=== PATIENT | female | born 1945 | race Caucasian/White ===

== ENCOUNTER 2016-12-23 21:44 | Inpatient (IN) | payer MEDICARE, MEDICAID ==
[2016-12-23] MEDS ORDERED: Albuterol-Ipratrop 3 mg / 0.5 (3 ml) UD ONE (21:53)
--- NOTE | 2016-12-23 21:59 | ED PDOC ---
Arrival/HPI - General Time Seen by Provider: 12/23/16 21:53 Historian: Patient - History of Present Illness Narrative History of Present Illness (Text): 12/23/16 21:58 Johnny Flor is a 70 year old female, whose past medical history includes stroke and atrial fibrillation, who presents to the Emergency department brought in by EMS accompanied by son complaining of shortness of breath. Patient states, via son acting as small lot operator, she has been experiencing worsening shortness of breath since yesterday. Patient denies any fever, chills, chest pain, nausea, vomiting, diarrhea, urinary symptoms, back pain, neck pain, headache, dizziness , or any other complaints. PMD: Dr. Dimitri Antunez Time/Duration: 24 hours (yesterday) Symptom Onset: Gradual Symptom Course: Worsening Activities at Onset: Rest, Light Context: Home Past Medical History - Provider Review Nursing Documentation Reviewed: Yes Family/Social History - Physician Review Nursing Documentation Reviewed: Yes Family/Social History: No Known Family HX Allergies/Home Meds Allergies/Adverse Reactions: Allergies No Known Allergies Allergy (Verified 12/23/16 22:00) Review of Systems - Physician Review All systems were reviewed & negative as marked: Yes - Review of Systems Constitutional: Normal. absent: Fevers Eyes: Normal ENT: Normal Respiratory: SOB. absent: Cough Cardiovascular: Normal. absent: Chest Pain Gastrointestinal: Normal. absent: Abdominal Pain, Diarrhea, Nausea, Vomiting Genitourinary Female: Normal. absent: Dysuria, Frequency, Hematuria, Urine Output Changes Musculoskeletal: Normal. absent: Back Pain, Neck Pain Skin: Normal. absent: Rash Neurological: Normal. absent: Headache, Dizziness Endocrine: Normal Hemo/Lymphatic: Normal Psychiatric: Normal Physical Exam Vital Signs Reviewed: Yes Vital Signs Temp Pulse Resp BP Pulse Ox 12/24/16 01:25 82 16 108/65 98 12/23/16 22:30 144/97 H 100 12/23/16 22:21 90 23 144/97 H 100 12/23/16 21:55 98.7 F 81 18 147/100 H 21 L Temperature: Afebrile Blood Pressure: Hypertensive Pulse: Regular Respiratory Rate: Normal Appearance: Positive for: Well-Appearing, Non-Toxic, Comfortable Pain Distress: None Mental Status: Positive for: Alert and Oriented X 3 - Systems Exam Head: Present: Atraumatic, Normocephalic Pupils: Present: PERRL Extroacular Muscles: Present: EOMI Conjunctiva: Present: Normal Mouth: Present: Moist Mucous Membranes Neck: Present: Normal Range of Motion Respiratory/Chest: Present: Wheezes, Rales. No: Respiratory Distress, Accessory Muscle Use Cardiovascular: Present: Regular Rate and Rhythm, Normal S1, S2. No: Murmurs Abdomen: Present: Normal Bowel Sounds. No: Tenderness, Distention, Peritoneal Signs Back: Present: Normal Inspection Upper Extremity: Present: Normal Inspection. No: Cyanosis, Edema Lower Extremity: Present: Normal Inspection. No: Edema Neurological: Present: GCS=15, CN II-XII Intact, Speech Normal Skin: Present: Warm, Dry, Normal Color. No: Rashes Psychiatric: Present: Alert, Oriented x 3, Normal Insight, Normal Concentration Medical Decision Making ED Course and Treatment: 12/23/16 21:58 Impression: 70 year old female complaining of worsening shortness of breath since yesterday. Differential Diagnosis include but are not limited to: CHF vs. pneumonia vs. ACS Plan: -- EKG -- Chest X-ray -- Labs, cardiac enzymes, BNP -- Lasix -- Duonebs -- Reassess and disposition Progress Notes: Reviewed EKG, a fib at 88 bpm. Non-specific T-wave changes. 12/23/16 22:52 Reviewed radiology, Chest X-ray shows increased pulmonary vascular congestion 12/24/16 00:04 Reviewed labs, BNP:5410. Paged Dr. Williamson. 12/24/16 00:[address] Williamson's service. 12/24/16 01:[address] Williamson, covering for Dr. Colbert, who is aware and agrees with plan. Pt will be admitted to Telemetry for CHF under Dr. Colbert's service. Requests Dr. Bryan on consult. - Lab Interpretations Lab Results: 12/23/16 22:31 12/23/16 23:23 Lab Results 12/23/16 23:23: Sodium 137, Potassium 4.1, Chloride 95 L, Carbon Dioxide 33, Anion Gap 13, BUN 21, Creatinine 0.8, Est GFR ( Amer) > 60, Est GFR (Non- Af Amer) > 60, Random Glucose 131 H, Calcium 9.2, Total Bilirubin 0.8, AST 51 H , ALT 57 H, Alkaline Phosphatase 92, Lactate Dehydrogenase 710 H, Total Creatine Kinase 59, Troponin I 0.02, NT-Pro-B Natriuret Pep 5410 H, Total Protein 7.9, Albumin 4.3, Globulin 3.6, Albumin/Globulin Ratio 1.2 12/23/16 22:31: WBC 3.8 L, RBC 3.91, Hgb 12.6, Hct 38.9, MCV 99.5, MCH 32.2, MCHC 32.4, RDW 14.4, Plt Count 155, MPV 10.8, PT 12.0 H, INR 1.11 H, APTT 28.2 I have reviewed the lab results: Yes - RAD Interpretation Radiology Orders: 12/23/16 22:00 CHEST PORTABLE [RAD] Stat Flatwork Washer: ED Physician - EKG Interpretation Interpreted by ED Physician: Yes Type: 12 lead EKG - Medication Orders Current Medication Orders: Discontinued Medications Albuterol/Ipratropium (Duoneb 3 Mg/0.5 Mg (3 Ml) Ud) Confirm Administered Dose 3 ml .ROUTE .STK-MED ONE Stop: 12/23/16 21:54 Last Admin: 12/23/16 22:36 Dose: Albuterol/Ipratropium (Duoneb 3 Mg/0.5 Mg (3 Ml) Ud) 3 ml IH ONCE STA Stop: 12/23/16 22:01 Last Admin: 12/23/16 22:31 Dose: 3 ML Furosemide (Lasix) 40 mg IVP ONCE ONE Stop: 12/23/16 22:01 Last Admin: 12/23/16 22:30 Dose: 40 MG MAR Blood Pressure Document 12/23/16 22:30 MR (Rec: 12/23/16 22:30 [facility]-[id number]) Blood Pressure Blood Pressure (100/60-150/90 mm Hg) 144/97 IVP Administration Document 12/23/16 22:30 (Rec: 12/23/16 22:30 [facility]-[id number]) Charges for Administration # of IVP Administrations 1 - Scribe Statement The provider has reviewed the documentation as recorded by the Frankie Felix Provider Attestation: All medical record entries made by the Scribe were at my direction and personally dictated by me. I have reviewed the chart and agree that the record accurately reflects my personal performance of the history, physical exam, medical decision making, and the department course for this patient. I have also personally directed, reviewed, and agree with the discharge instructions and disposition. Disposition/Present on Arrival - Present on Arrival Any Indicators Present on Arrival: No History of DVT/PE: No History of Uncontrolled Diabetes: No Urinary Catheter: No History of Decub. Ulcer: No History Surgical Site Infection Following: None - Disposition Have Diagnosis and Disposition been Completed?: Yes Diagnosis: Congestive heart failure Disposition: HOSPITALIZED Disposition Time: 01:58 Patient Plan: Admission Patient Problems: Current Active Problems Problem Status Diagnosed Congestive heart failure Acute Condition: STABLE Discharge Instructions (ExitCare): Heart Failure (ED)
[2016-12-23] MEDS ORDERED: Albuterol-Ipratrop 3 mg / 0.5 (3 ml) UD IH STA (22:00)
[2016-12-23 22:06] VITALS: BMI 25.4
[2016-12-23 22:50] LABS: HEMATOCRIT 38.9 % (36.0-48.0); MEAN CELL VOLUME 99.5 fL (80.0-105.0); MEAN CORPUSCULAR HEMOGLOBIN 32.2 pg (25.0-35.0); MEAN CORPUSCULAR HGB CONC 32.4 g/dl (31.0-37.0); MEAN PLATELET VOLUME 10.8 fl (7.0-11.0); RED CELL DISTRIBUTION WIDTH 14.4 % (11.5-14.5); WHITE BLOOD COUNT 3.8 10^3/ul (4.5-11.0)
[2016-12-23 23:00] LABS: INR 1.11 (0.93-1.08); PARTIAL THROMBOPLASTIN TIME 28.2 Seconds (23.7-30.8)
[2016-12-23 23:47] LABS: ALB/GLOB RATIO 1.2 (1.1-1.8); ALKALINE PHOSPHATASE 92 U/L (38-133); ALT/SGPT 57 U/L (7-56); AST/SGOT 51 U/L (15-39); BILIRUBIN,TOTAL 0.8 mg/dL (0.2-1.3); BLOOD UREA NITROGEN 21 mg/dL (7-21); CALCIUM 9.2 mg/dL (8.4-10.5); CARBON DIOXIDE 33 mmol/L (21-33); CHLORIDE 95 mmol/L (98-107); GFR AFRICAN-AMERICAN > 60; GLUCOSE,RANDOM 131 mg/dL (70-110); POTASSIUM 4.1 mmol/L (3.6-5.0); SODIUM 137 mmol/L (132-148); TOTAL PROTEIN 7.9 g/dL (5.8-8.3)
[2016-12-23 23:59] LABS: TROPONIN I 0.02 ng/mL
[2016-12-24] MEDS ORDERED: Albuterol-Ipratrop 3 mg / 0.5 (3 ml) UD IH PRN (02:01)
--- NOTE | 2016-12-24 08:53 | RAD ---
HISTORY: sob COMPARISON: No prior. FINDINGS: LUNGS: Mild pulmonary vascular congestion -of unknown chronicity. . No consolidation PLEURA: No significant pleural effusion identified, no pneumothorax apparent. CARDIOVASCULAR: Cardiomegaly OSSEOUS STRUCTURES: No significant abnormalities. VISUALIZED UPPER ABDOMEN: Normal. OTHER FINDINGS: None. IMPRESSION: Mild pulmonary venous congestion and cardiomegaly - mild CHF needs to be considered.
--- NOTE | 2016-12-24 09:19 | HP ---
I saw her in the intensive care unit, bed 1. She is resting in bed, a little bit short of breath, ta lking in broken Yemeni, able to communicate fairly well. She is comfortable at this time, feeling b mohini than in the Emergency Room. No shortness of breath or chest pain at this time, just a little b it uncomfortable. PAST MEDICAL HISTORY: Includes stroke, atrial fibrillation. She was short of breath in the Emergency Room. That is much improved now. It gradually got worse be fore she came to the hospital. FAMILY HISTORY: There is hypertension in the family. ALLERGIES: No known drug allergies. She has no acute vision changes or hearing changes, no sore throat. There is a little bit of chest d iscomfort and shortness of breath, but it is relieved now. [facility] I believe the IV Lasix in the Emergency Room helped her. No nausea, vomiting, constipa tion, diarrhea. No problems urinating. No back pain. No skin rashes. No headaches, no dizziness. She does have some weakness in the extremities. PHYSICAL EXAMINATION: VITAL SIGNS: She has 98.7 temp, 81 pulse, 18 respiratory rate. Blood pressure was as high as 147/10 0. I will check her medicines for the blood pressure and 100% O2 sat on oxygen. HEENT: Head is atraumatic, normocephalic. Extraocular muscles are intact. Pupils equally reactive to light. Throat is moist, no erythema. GENERAL: She is alert and oriented x 3, well-appearing, comfortable at this time. NECK: Supple, no JVD. LUNGS: Clearer than in the ER. She did have wheezes and rales in the Emergency Room. Right now, th ey are fairly clear with very little cough. HEART: Regular rate. Normal S1, S2. ABDOMEN: Soft, nontender, positive bowel sounds. No CVA tenderness. No guarding, no rebound. EXTREMITIES: Have no edema at this time. NEUROLOGIC: GCS is 15. Cranial nerves II-XII grossly intact. Normal speech. She is alert. She is smiling at me and laughing with her broken Yemeni, alert and oriented x 3. She had multiple tests. She had a 137 sodium, potassium 4.1, BUN 21, creatinine 0.8, GFR is greater than 60, sugar is 131. We will check her sugars periodically. Calcium is 9.2. AST is 51, ALT is 57 . We will watch her elevated liver enzymes and we will repeat that. Troponin 0.02. BNP was high at 5410. Total protein 7.9. INR 1.11. White count is 3.8, hemoglobin 12.6, hematocrit 38.9, platelet s 155. She has a chest x-ray pending. It looked like congestive heart failure. She will have a con sult with cardiology. She will be on IV Lasix twice a day, oxygen, insulin coverage, physical therap y, out of bed to chair and hopefully she will improve. We will get physical therapy involved. We wi ll see what the heater helper has to say. She is in the intensive care unit for acute congestive hear t failure, improving with diuresis. Dar Colbert DO cc: [id number] TT: 12/24/2016 09:19:06 en
--- NOTE | 2016-12-24 10:45 | CON ---
DATE: 12/24/2016 HISTORY OF PRESENT ILLNESS: The patient is a 70-year-old woman who presents with dyspnea thought to be secondary to congestive heart failure. PAST MEDICAL HISTORY: Includes a history of chronic atrial fibrillation. She was treated with aspir in and Plavix on the outside. Her past medical history is also noted for hypercholesterolemia. She was on beta blockers as well as digoxin yesterday. She denies chest pain. Her dyspnea is better. REVIEW OF SYSTEMS: Not available. PHYSICAL EXAMINATION: VITAL SIGNS: Blood pressure 154/54, heart rate is atrial fibrillation in the 70s. NECK: Negative JVD. LUNGS: Bilateral rales at the bases. HEART: Revealed S1, S2, without murmurs. EXTREMITIES: Without edema. EKG shows atrial fibrillation with nonspecific ST-T changes. LABORATORY DATA: Hemoglobin is 12.6. Chemistries: Glucose is 164. Troponin is negative x 1. ProB SOLUTION MIXER is 5410. IMPRESSION: 1. Acute systolic congestive heart failure. 2. Atrial fibrillation, chronic. 3. Diabetes mellitus. 4. Hypertension. 5. Hypercholesterolemia. PLAN: Given these findings, we will continue giving her Lasix 40 b.i.d. An echocardiogram to evalua te LV function will be important. Will try to talk to her son to see why the patient was not anticoa gulated for atrial fibrillation. Hakeem Bryan MD cc: [id number] TT: 12/24/2016 10:44:31 Confirmation # [id number] Dictation # [id number] mally
[2016-12-24] MEDS: Insulin Reg-MEDIUM-Coverage SC SCH ×3 (11:44→22:30)
[2016-12-24 14:30] VITALS: O2SAT 97
--- NOTE | 2016-12-24 17:26 | CARD ---
APPROVED REPORT EXAM: Two-dimensional and M-mode echocardiogram with Doppler and color Doppler. INDICATION Congestive Heart Failure 2D DIMENSIONS Left Atrium (2D)5.5 (1.6-4.0cm)IVSd1.0 (0.7-1.1cm) LVDd4.0 (3.9-5.9cm)PWd1.1 (0.7-1.1cm) LVDs2.8 (2.5-4.0cm)FS (%) 30.0 % LVEF (%)57.8 (>50%) M-Mode DIMENSIONS Aortic Root2.60 (2.2-3.7cm)Aortic Cusp Exc.1.40 (1.5-2.0cm) Aortic Valve AoV Peak Bzfolyqb634.0cm/Samantha Peak GR.14mmHgLVOT Peak Qkilvvai855.0cm/s LVOT VTI20.60cmAI P 1/2 [id number] Mitral Valve MV E Peak Gr.8mmHgMV E Mean Gr.4mmHgMV [id number] E/A ratio0.0MVA (PHT)1.44cm2 TDI E/Lateral E'0.0E/Medial E'0.0 Pulmonary Valve PV Peak Vzxixxkf642.0cm/sPV Peak Grad.6mmHg Tricuspid Valve TR Peak Ymdvbycl240rk/sRAP [id number] Peak Gr.64mmHg [id number] LEFT VENTRICLE The left ventricle is normal size. There is normal left ventricular wall thickness. The left ventricular ejection fraction is within the normal range. There is a flattened septum RIGHT VENTRICLE The right ventricle is moderately dilated. There is normal right ventricular wall thickness. RV Systolic function is mildly reduced. ATRIA The left atrium is severely dilated. The right atrium is severely dilated. Possible small secundum type atrial septal defect. AORTIC VALVE The aortic valve is mildly sclerotic. There is moderate aortic regurgitation. MITRAL VALVE Mitral regurgitation is moderate. TRICUSPID VALVE There is severe tricuspid regurgitation. There is severe pulmonary hypertension. <Conclusion> The left ventricle is normal size. There is normal left ventricular wall thickness. The left ventricular ejection fraction is within the normal range. There is a flattened septum The right ventricle is moderately dilated. RV Systolic function is mildly reduced. There is moderate aortic regurgitation. Mitral regurgitation is moderate. There is severe tricuspid regurgitation. There is severe pulmonary hypertension. Possible small secundum type atrial septal defect.
--- NOTE | 2016-12-24 18:02 | CARD ---
APPROVED REPORT EKG Measurement Heart [id number] <Conclusion> Atrial fibrillation Nonspecific T wave abnormality, probably digitalis effect Abnormal ECG
[2016-12-24 19:10] VITALS: PULSE 85; RESP 19; TEMP 97.9
[2016-12-25 07:25] LABS: HEMATOCRIT 46.9 % (36.0-48.0); MEAN CELL VOLUME 98.9 fL (80.0-105.0); MEAN CORPUSCULAR HEMOGLOBIN 31.9 pg (25.0-35.0); MEAN CORPUSCULAR HGB CONC 32.2 g/dl (31.0-37.0); MEAN PLATELET VOLUME 9.2 fl (7.0-11.0); RED CELL DISTRIBUTION WIDTH 13.3 % (11.5-14.5); WHITE BLOOD COUNT 6.1 10^3/ul (4.5-11.0)
[2016-12-25 08:02] LABS: ALKALINE PHOSPHATASE 94 U/L (38-133); ALT/SGPT 46 U/L (7-56); AST/SGOT 45 U/L (15-39); BILIRUBIN,TOTAL 0.8 mg/dL (0.2-1.3); BLOOD UREA NITROGEN 30 mg/dL (7-21); CALCIUM 9.1 mg/dL (8.4-10.5); CHLORIDE 86 mmol/L (98-107); GFR AFRICAN-AMERICAN > 60; GLUCOSE,RANDOM 109 mg/dL (70-110); POTASSIUM 3.7 mmol/L (3.6-5.0); SODIUM 140 mmol/L (132-148); TOTAL PROTEIN 8.3 g/dL (5.8-8.3)
[2016-12-25] MEDS: Insulin Reg-MEDIUM-Coverage SC SCH ×2 (08:08→11:35)
--- NOTE | 2016-12-25 08:20 | PN ---
DATE: 12/25/2016 I saw her resting now in room 271. She is out of the intensive care unit. She is comfortable, much improved, breathing better, less swollen. She is not eating well though. Waiting for physical thera anibal to give me direction on home, subacute rehab, or TCU if she needs it. PHYSICAL EXAMINATION: VITAL SIGNS: She has a 97.9 temp, 85 pulse, 136/69 blood pressure, 19 respiratory rate, 97% O2 sat o n 2 liters. HEAD: Atraumatic, normocephalic. Throat is moist. NECK: Supple. HEART: Regular rate. LUNGS: Decreased breath sounds, clear to auscultation. ABDOMEN: Soft. EXTREMITIES: No edema today, much better. MEDICATIONS: She is currently on Lasix 40 IV b.i.d. and insulin coverage. LABORATORY DATA: Blood sugars have been 115, then 117, then 217, so they are doing better. Labs ar e pending this morning. Overall though, I do think she has improved. She is being seen by Dr. Hakeem Bryan who ordered some te sts, an echocardiogram. I ordered physical therapy, out of bed to chair. There is occupational rehabilitation aide apy screening also. Will continue to diurese her. I think she is improving. Maybe 1 more day or to TCU or subacute rehab, depending on what physical therapy says. Continue with aggressive treatment and care for congestive heart failure, she has an old cerebrovascular accident, atrial fibrillation, hypertension, high cholesterol. Dar Colbert DO cc: [id number] TT: 12/25/2016 08:19:36 Confirmation # [id number] Dictation # [id number] j carlos
[2016-12-25 08:33] LABS: CARBON DIOXIDE > 40 mmol/L (21-33)
[2016-12-25 09:37] VITALS: BP 130/70
--- NOTE | 2016-12-25 10:19 | PN ---
DATE: 12/25/2016 The patient's breathing is much improved. On physical exam, blood pressure is 130/70, the heart rate is in the 80s. The patient is afebrile. NECK: Negative JVD. LUNGS: Improved rales, with minimal basilar rales. HEART: Reveals S1, S2. EXTREMITIES: Without edema. LABORATORIES: Hemoglobin is 15.1. Chemistries: The potassium is 3.7, BUN and creatinine are 30 and 0.8. Echocardiogram reveals good LV function with ncomrbqv-ul-pvuwju pulmonary hypertension. There is par oxysmal atrial septal defect noted. IMPRESSION: 1. Acute diastolic congestive heart failure. 2. Pulmonary hypertension. 3. Diabetes mellitus. 4. Dyspnea, resolved. PLAN: Given these findings, I have discussed with the patient, through a equine manager, about continued physical therapy versus going home. The patient would like to go home and be treated at home. She is agreeable for an outpatient stress test, which we will arrange. She should go home on Lasix 40 daily. Hakeem Bryan MD cc: [id number] TT: 12/25/2016 10:19:06 Confirmation # [id number] Dictation # [id number] teresa
--- NOTE | 2016-12-25 10:28 | DS ---
I discussed this morning with Dr. Hakeem Bryan and he feels she is okay to go home. She will go home o n 81 mg of chewable aspirin, Lasix 40 IV twice a day and gabapentin 400 mg daily. She should follow up in the outpatient with Dr. Bryan. She will have an outpatient stress test. Make sure she takes th e water pills daily. She should do very well and follow up with her primary care doctor for acute CH F. Dar Colbert DO cc: [id number] TT: 12/25/2016 10:27:43 dn
== END 2016-12-25 11:58 | disposition home or self-care (01) | DRG 293 ==
LOC: ED 21:44 → ERH 12-24 01:59 → MERGE 12-24 01:59 → ERH 12-24 02:33 → CCU 12-24 03:16 → 2RSO 12-24 16:59
PROVIDERS: ADMIT Family Medicine; ATTEND Family Medicine
DX: I11.0 Hypertensive heart disease with heart failure (principal); I50.41 Acute combined systolic (congestive) and diastolic (congestive) heart failure; I27.2 Other secondary pulmonary hypertension; I48.2 Chronic atrial fibrillation; E11.9 Type 2 diabetes mellitus without complications; E78.00 Pure hypercholesterolemia, unspecified; Z86.73 Personal history of transient ischemic attack (TIA), and cerebral infarction without residual deficits; Z82.49 Family history of ischemic heart disease and other diseases of the circulatory system

== ENCOUNTER 2017-09-25 08:47 | Inpatient (IN) | payer MEDICARE, MEDICAID ==
[2017-09-25 08:50] VITALS: BMI 21.9
[2017-09-25] MEDS ORDERED: Etomidate 20 mg/10ml Inj IV ONE (09:03)
[2017-09-25] MEDS ORDERED: Succinylcholine 200 mg/10 ml Inj IV ONE (09:04)
[2017-09-25 09:15] LABS: BASO # 0.01 K/mm3 (0.0-2.0); BASO % 0.1 % (0.0-3.0); EOS % 0.3 % (1.5-5.0); GRAN # 6.47 (1.4-6.5); HEMOGLOBIN 13.5 g/dL (12.0-16.0); LYMPH # 1.1 (1.2-3.4); LYMPH % 13.3 % (22.0-35.0); MEAN CELL VOLUME 100.2 fl (80.0-105.0); MEAN CORPUSCULAR HEMOGLOBIN 32.5 pg (25.0-35.0); MEAN CORPUSCULAR HGB CONC 32.4 g/dl (31.0-37.0); MEAN PLATELET VOLUME 9.8 fl (7.0-11.0); MONO # 0.4 (0.1-0.6); MONO % 5.3 % (1.0-6.0); RBC 4.16 10^6/uL (3.5-6.1); RED CELL DISTRIBUTION WIDTH 12.8 % (11.5-14.5)
[2017-09-25 09:28] LABS: VENOUS BLOOD GAS PO2 43 mm/Hg (30-55); VENOUS BLOOD PH 7.28 (7.32-7.43)
[2017-09-25 09:35] LABS: ALB/GLOB RATIO 1.3 (1.1-1.8); ALBUMIN 4.6 g/dL (3.0-4.8); ALT/SGPT 27 U/L (7-56); AST/SGOT 37 U/L (14-36); BLOOD UREA NITROGEN 24 mg/dL (7-21); GFR AFRICAN-AMERICAN > 60; GFR NON-AFRICAN AMERICAN > 60; MAGNESIUM 2.3 mg/dL (1.7-2.2); TROPONIN I < 0.01 ng/mL
--- NOTE | 2017-09-25 09:46 | CT ---
PROCEDURE: CT HEAD WITHOUT CONTRAST. HISTORY: New left sided weakness - h/o CVA x2 COMPARISON: None available. TECHNIQUE: Axial computed tomography images were obtained through the head/brain without intravenous contrast. Radiation dose: Total exam DLP = 909.75 mGy-cm. This CT exam was performed using one or more of the following dose reduction techniques: Automated exposure control, adjustment of the mA and/or kV according to patient size, and/or use of iterative reconstruction technique. FINDINGS: HEMORRHAGE: No intracranial hemorrhage. BRAIN: There is diffuse low-attenuation in the right frontal and parietal lobes, right corpus striae time, internal capsule and medial temporal lobes with effacement of cortical sulci. There is a cystic encephalomalacia in the right occipital and posterior temporal lobes. There is mild mass effect on the right lateral ventricle and approximately 4 mm midline shift from right to left. There is no evidence of soft fall seen or uncal herniation. VENTRICLES: No evidence of hydrocephalus. CALVARIUM: The skull base and calvarium are normal. PARANASAL SINUSES: Predominantly clear. MASTOID AIR CELLS: Predominantly clear. OTHER FINDINGS: None. IMPRESSION: 1. 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 Mild mass effect on the right lateral ventricle and 4 mm midline shift from right to left. No evidence of hemorrhagic transformation. Given large size of infarction an associated edema, impending herniation is a consideration. 2. Cystic encephalomalacia in the right occipital and posterior temporal lobes, sequela of remote CRISIS CLINICIAN and MCA CRISIS CLINICIAN watershed territory infarctions. Critical findings were discussed with doctor James Yoon on 09/25/2017 at 9:35 a.m.
[2017-09-25] MEDS ORDERED: Midazolam 100 mg/100ml in NS 100 MG/100 ML SOL IV PRN (09:52)
[2017-09-25] MEDS ORDERED: Sodium Chloride 3% 500 ML IV SCH (10:00)
[2017-09-25 10:30] LABS: PH,URINE 7.5 (4.7-8.0); URINE BILIRUBIN NEGATIVE (NEGATIVE); URINE BLOOD NEGATIVE (NEGATIVE); URINE GLUCOSE (UA) NEGATIVE (NEGATIVE); URINE LEUKOCYTE ESTERASE NEGATIVE Leu/uL (NEGATIVE); URINE NITRATE NEGATIVE (NEGATIVE); URINE PROTEIN 100 mg/dL (<30 mg/dL); URINE UROBILINOGEN 0.2 E.U./dL (<1 E.U./dL)
[2017-09-25 10:32] LABS: URINE APPEARANCE SL CLOUDY (CLEAR); URINE COLOR YELLOW (YELLOW)
[2017-09-25 10:46] LABS: URINE BACTERIA TRACE (NEG); URINE WBC 0 - 2 /hpf (0-6)
[2017-09-25] MEDS ORDERED: Midazolam 2 MG/2 ML VIAL IVP STA (11:17)
[2017-09-25 11:21] LABS: INR 1.05 (0.93-1.08); PROTHROMBIN TIME 12.1 SECONDS (9.4-12.5)
--- NOTE | 2017-09-25 11:22 | RAD ---
HISTORY: r/o infiltrate COMPARISON: 12/23/2016. FINDINGS: The endotracheal tube terminates 2.8 cm proximal to the laurel. LUNGS: The lungs are well inflated. There is moderate pulmonary venous congestion. There is airspace disease in the right lower lobe. There is also linear atelectasis in the left mid lung. PLEURA: No significant pleural effusion identified, no pneumothorax apparent. CARDIOVASCULAR: There is severe cardiomegaly and prominent central vasculature. OSSEOUS STRUCTURES: No significant abnormalities. VISUALIZED UPPER ABDOMEN: Normal. OTHER FINDINGS: None. IMPRESSION: Severe cardiomegaly and moderate pulmonary venous congestion. Airspace disease in the right lower lobe may represent pneumonia. Follow-up is advised.
[2017-09-25] MEDS: Insulin Reg-MEDIUM-Coverage SC SCH ×3 (11:30→23:14)
[2017-09-25 11:59] LABS: ARTERIAL BLOOD GAS HCO3 22.7 mmol/L (21-28); ARTERIAL BLOOD GAS PCO2 44 mm/Hg (35-45); ARTERIAL BLOOD GAS PH 7.32 (7.35-7.45); ARTERIAL BLOOD GAS TCO2 24.1 mmol.L (22-28)
[2017-09-25] MEDS: Vancomycin 1gm in NS 250ml 1 GM/250 ML BAG IVPB SCH (12:06)
--- NOTE | 2017-09-25 12:26 | ED PDOC ---
Arrival/HPI - General Chief Complaint: Altered Mental Status Time Seen by Provider: 09/25/17 08:49 Historian: Patient - History of Present Illness Narrative History of Present Illness (Text): 09/25/17 09:10 A 71 year old female, whose past medical history includes 2 previous strokes, atrial fibrillation and hypertension, was brought in by EMS to the emergency department for stroke. Patient's (using deckhand oyster dredge) and family states patient slept 10 pm last night and were not able to wake her up this morning and called 911. Patient has a history of old CVA with left lower extremity weakness as a result. Patient in the emergency department non verbal and not responding to verbal or tactile stimuli. deckhand oyster dredge number [id number] Symptom Onset: Sudden Symptom Course: Unchanged Activities at Onset: Rest Context: Home Past Medical History - Provider Review Nursing Documentation Reviewed: Yes - Infectious Disease Hx of Infectious Diseases: None - Reproductive Menopause: Yes - Cardiac Hx Atrial Fibrillation: Yes Hx Hypertension: Yes - Pulmonary Hx Respiratory Disorders: No - Neurological Hx Neurological Disorder: Yes HX Cerebrovascular Accident: Yes (left side weakness) - HEENT Hx HEENT Disorder: No - Renal Hx Renal Disorder: No - Endocrine/Metabolic Hx Endocrine Disorders: No - Hematological/Oncological Hx Blood Disorders: No - Integumentary Hx Dermatological Disorder: No - Musculoskeletal/Rheumatological Hx Falls: Yes - Gastrointestinal Hx Gastrointestinal Disorders: Yes Hx Gastroesophageal Reflux: Yes - Genitourinary/Gynecological Hx Genitourinary Disorders: No - Psychiatric Hx Psychophysiologic Disorder: No Hx Substance Use: No - Anesthesia Hx Anesthesia: No Family/Social History - Physician Review Nursing Documentation Reviewed: Yes Family/Social History: No Known Family HX Smoking Status: Never Smoked Hx Alcohol Use: No Hx Substance Use: No Allergies/Home Meds Allergies/Adverse Reactions: Allergies No Known Allergies Allergy (Verified 09/25/17 11:35) Home Medications: Home Meds Medication Instructions Recorded Confirmed Aspirin [Adult Low Dose Aspirin EC] 81 mg PO DAILY 12/24/16 09/25/17 Clopidogrel [Plavix] 75 mg PO DAILY 12/24/16 09/25/17 Digoxin [Digitek] 125 mcg PO DAILY 12/24/16 09/25/17 Ergocalciferol (Vitamin D2) 50,000 unit PO Q7D 12/24/16 09/25/17 [Vitamin D2] Isosorbide Mononitrate [Imdur] 60 mg PO DAILY 12/24/16 09/25/17 Simvastatin 40 mg PO HS 12/24/16 09/25/17 Metoprolol Tartrate [Lopressor] 1 tab PO BID 09/25/17 09/25/17 Review of Systems - Review of Systems Systems not reviewed;Unavailable: Acuity of Condition Physical Exam - Physical Exam Physical Exam Limitations: Clinical Condition Vital Signs Reviewed: Yes Vital Signs Temp Pulse Resp BP Pulse Ox 09/25/17 10:59 117 H 16 131/104 H 100 09/25/17 10:25 106 H 16 150/107 H 100 09/25/17 10:14 98.4 F 09/25/17 10:00 115 H 16 147/100 H 100 09/25/17 09:33 130 H 18 151/99 H 100 09/25/17 09:20 108 H 18 157/80 H 100 09/25/17 08:47 110 H 22 141/101 H 100 Blood Pressure: Hypertensive Pulse: Tachycardic Respiratory Rate: Normal Mental Status: Positive for: other (non verbal) - Systems Exam Respiratory/Chest: Present: Decreased Breath Sounds (b/l) Cardiovascular: Present: Irregular Rhythm, Other (systolic murmur) Abdomen: Present: Normal Bowel Sounds. No: Tenderness, Distention, Peritoneal Signs Lower Extremity: Present: Normal Inspection. No: Edema Medical Decision Making ED Course and Treatment: 09/25/17 12:23 Impression: A 71 year old female with stroke. Plan: -- EKG -- CT head -- labs -- chest xray -- Urinalysis -- Reassess and disposition Prior Visits: Notes and results from previous visits were reviewed. Patient was last seen in the emergency department on 12/23/16 for evaluation of shortness of breath. Patient was admitted to telemetry under Dr. Colbert's service. Patient was discharged on 12/25/16. Progress Notes: PROCEDURE: INTUBATION Performed by the emergency provider Time: 10:00 Consent: Discussion of the risks, benefits, and alternatives to the procedure, along with informed consent was precluded by the urgency of the procedure and the patient condition. Timeout: A timeout to verify the correct patient, procedure, and site was performed. Indication: unresponsive Pre-oxygenation: [id number] Medications: See MAR for details. ETT Size: 7.5 Confirmation: Cords directly visualized as tube passed, good bilateral breath sounds, positive CO2 detector color change, tube fogging, adequate chest rise, improving pulse oximetry reading, improved skin color, and absence of gastric sounds,. ETT Secured: The cuff was inflated and the tube was secured appropriately at a distance of 21 cm at the lip. Post-Procedure: There were no immediate complications. CXR Confirmation: Yes EKG: Ordered, reviewed, and independently interpreted the EKG. Rate : 120 BPM Rhythm : a fib Interpretation : Normal axis. 09/25/17 09:43 CT HEAD WITHOUT CONTRAST Creator : Nhung Lizarraga MD FINDINGS: HEMORRHAGE: No intracranial hemorrhage. BRAIN: There is diffuse low-attenuation in the right frontal and parietal lobes , right corpus striae time, internal capsule and medial temporal lobes with effacement of cortical sulci. There is a cystic encephalomalacia in the right occipital and posterior temporal lobes. There is mild mass effect on the right lateral ventricle and approximately 4 mm midline shift from right to left. There is no evidence of soft fall seen or uncal herniation. VENTRICLES: No evidence of hydrocephalus. CALVARIUM: The skull base and calvarium are normal. PARANASAL SINUSES: Predominantly clear. MASTOID AIR CELLS: Predominantly clear. IMPRESSION: 1. Findings are consistent with large late acute/subacute right MCA and IRMA territory infarctions involving the frontal, parietal and medial temporal lobes , corpus striae term and internal capsule. Mild mass effect on the right lateral ventricle and 4 mm midline shift from right to left. No evidence of hemorrhagic transformation. Given large size of infarction an associated edema, impending herniation is a consideration. 2. Cystic encephalomalacia in the right occipital and posterior temporal lobes, sequela of remote PROGRAM PARAPROFESSIONAL and MCA PROGRAM PARAPROFESSIONAL watershed territory infarctions. Critical findings were discussed with doctor James Yoon on 09/25/2017 at 9:35 a.m. 9:[address] Silva, who recommends hypertonic solution and neurosurgery consult. 9:50 Paged neurosurgery. Spoke with Dr. Garduno, neurosurgery, no intervention at this time. Spoke with Dr. Martinez, pricing coordinator, who is aware of case. Case reviewed with Dr. Manriquez, who agrees and accepts patient to be admitted to her service. 09/25/17 11:24 Chest xray: Creator : Nhung Lizarraga MD IMPRESSION: Severe cardiomegaly and moderate pulmonary venous congestion. Airspace disease in the right lower lobe may represent pneumonia. Follow-up is advised. - Critical Care Critical Care Minutes: 90 minutes - Lab Interpretations Lab Results: 09/25/17 09:00 09/25/17 09:00 Lab Results 09/25/17 10:15: Urine Color Yellow, Urine Appearance Sl cloudy, Urine pH 7.5, Ur Specific [place] 1.020, Urine Protein 100 H, Urine Glucose (UA) Negative, Urine Ketones Negative, Urine Blood Negative, Urine Nitrate Negative, Urine Bilirubin Negative, Urine Urobilinogen 0.2, Ur Leukocyte Esterase Negative, Urine RBC 1 - 3, Urine WBC 0 - 2, Urine Bacteria Trace 09/25/17 09:00: Triglycerides 100, Cholesterol 135, LDL Cholesterol Direct 63, HDL Cholesterol 46 09/25/17 09:00: pO2 43, VBG pH 7.28 L, VBG pCO2 65.0 H, VBG HCO3 30.5 H, VBG Total CO2 32.5 H, VBG O2 Sat (Calc) 78.2 H, VBG Base Excess 2.0, VBG Potassium 4.2, Sodium 139.0, Chloride 104.0, Glucose 151 H, Lactate 1.7, FiO2 21.0, Venous Blood Potassium 4.2 09/25/17 09:00: Sodium 142, Chloride 102, Potassium 4.2, Carbon Dioxide 30, Anion Gap 14, BUN 24 H, Creatinine 0.8, Est GFR ( Amer) > 60, Est GFR ( Non-Af Amer) > 60, Random Glucose 152 H, Calcium 9.0, Magnesium 2.3 H, Total Bilirubin 0.7, AST 37 H, ALT 27, Alkaline Phosphatase 85, Lactate Dehydrogenase 626, Total Creatine Kinase 102, Troponin I < 0.01 D, Total Protein 8.2, Albumin 4.6, Globulin 3.6, Albumin/Globulin Ratio 1.3 09/25/17 09:00: WBC 8.0 D, RBC 4.16, Hgb 13.5, Hct 41.7, MCV 100.2, MCH 32.5, MCHC 32.4, RDW 12.8, Plt Count 119 L, MPV 9.8, Gran % 81.0 H, Lymph % (Auto) 13.3 L, [place] % (Auto) 5.3, Eos % (Auto) 0.3 L, Baso % (Auto) 0.1, Gran # 6.47, Lymph # 1.1 L, [place] # 0.4, Eos # 0.0, Baso # 0.01 I have reviewed the lab results: Yes - RAD Interpretation Radiology Orders: 09/25/17 08:51 HEAD W/O CONTRAST [CT] Stat CHEST PORTABLE [RAD] Stat - EKG Interpretation Interpreted by ED Physician: Yes Type: 12 lead EKG - Medication Orders Current Medication Orders: Acetaminophen (Tylenol 325mg Tab) 650 mg PO Q4 PRN PRN Reason: Fever >100.4 F Acetaminophen (Tylenol 650 Mg Supp) 650 mg RC Q6H PRN PRN Reason: Fever >100.4 F Digoxin (Lanoxin) 0.125 mg IVP 1400 HARLAN Midazolam 100 mg/100ml in NS (Midazolam 100 Mg/100ml In Ns) 100 mg in 100 mls @ 1 mls/hr IV .Q24H PRN; Protocol; 1 MG/HR PRN Reason: Agitation Last Titration: 09/25/17 11:17 Dose: 3 mg/hr, 3 mls/hr Titration Intervention Document 09/25/17 11:17 SE (Rec: 09/25/17 11:18 SE [id number]) Titration Intake Container Volume 100 Titration Dosing Titration Dose 3 IV Rate 3 Intake/Decrease Started Vancomycin HCl (Vancomycin 1gm) 1 gm in 250 mls @ 167 mls/hr IVPB Q12H HARLAN PRN Reason: Protocol Last Admin: 09/25/17 12:06 Dose: 167 mls/hr eMAR Start Stop Document 09/25/17 12:06 JUR (Rec: 09/25/17 12:06 JUR [id number]) Intravenous Solution Start Date 09/25/17 Start Time 12:06 End Date 09/25/17 End time 13:36 Total Infusion Time 90 Sodium Chloride (Hypertonic Saline 3%) 500 mls @ 40 mls/hr IV .[id number] HARLAN Last Admin: 09/25/17 17:30 Dose: 40 mls/hr eMAR Start Stop Document 09/25/17 17:30 JUR (Rec: 09/25/17 17:51 JUR [id number]) Intravenous Solution Start Date 09/25/17 Start Time 17:30 Insulin Human Regular (Humulin R Med) 0 units SC ACHS HARLAN PRN Reason: Protocol Last Admin: 09/25/17 16:30 Dose: Not Given Non-Admin Reason: Blood Sugar Parameter MAR Blood Glucose Document 09/25/17 16:30 JUR (Rec: 09/25/17 17:54 JUR [id number]) Blood Glucose Finger Stick Blood Glucose (70-120) 117 Ondansetron HCl (Zofran Inj) 4 mg IVP Q6H PRN PRN Reason: Nausea/Vomiting Pantoprazole Sodium (Protonix Inj) 40 mg IVP DAILY [facility] Last Admin: 09/25/17 16:00 Dose: 40 mg IVP Administration Document 09/25/17 16:00 JUR (Rec: 09/25/17 16:00 JUR [id number]) Charges for Administration # of IVP Administrations 1 Discontinued Medications Digoxin (Lanoxin) 0.25 mg IVP ONCE ONE Stop: 09/25/17 15:45 Last Admin: 09/25/17 16:00 Dose: 0.25 mg MAR Apical Pulse Rate Document 09/25/17 16:00 JUR (Rec: 09/25/17 16:00 JUR [id number]) Apical Pulse Rate Apical Pulse Rate (60-90 beats/min) 96 IVP Administration Document 09/25/17 16:00 JUR (Rec: 09/25/17 16:00 JUR [id number]) Charges for Administration # of IVP Administrations 1 Sodium Chloride (Hypertonic Saline 3%) 500 mls @ 50 mls/hr IV .Q10H [facility] Last Admin: 09/25/17 10:17 Dose: 50 mls/hr Comments: 250cc bolus admin as ordered eMAR Start Stop Document 09/25/17 10:17 SE (Rec: 09/25/17 10:17 SE [id number]) Intravenous Solution Start Date 09/25/17 Start Time 10:17 Piperacillin Sod/Tazobactam Sod (Zosyn 3.375 In Ns 100ml) 100 mls @ 200 mls/hr IVPB Q6 HARLAN PRN Reason: Protocol Stop: 09/25/17 18:29 Last Admin: 09/25/17 15:07 Dose: 200 mls/hr eMAR Start Stop Document 09/25/17 15:07 JUR (Rec: 09/25/17 15:07 JUR [id number]) Intravenous Solution Start Date 09/25/17 Start Time 15:07 End Date 09/25/17 End time 15:37 Total Infusion Time 30 Midazolam HCl (Versed Inj) 2 mg IVP STAT STA Stop: 09/25/17 11:18 Last Admin: 09/25/17 11:18 Dose: 2 mg IVP Administration Document 09/25/17 11:18 SE (Rec: 09/25/17 11:18 SE [id number]) Charges for Administration # of IVP Administrations 1 Pneumococcal Polyvalent Vaccine (Pneumovax 23 Vaccine) 0.5 ml IM .ONCE ONE Stop: 09/25/17 15:11 Sodium Chloride (Hypertonic Saline 3%) 250 ml IV BOLUS HARLAN Sodium Chloride (Hypertonic Saline 3%) 250 ml IV STAT STA Stop: 09/25/17 10:22 Last Admin: 09/25/17 10:23 Dose: 250 ml eMAR Start Stop Document 09/25/17 10:23 SE (Rec: 09/25/17 10:23 SE [id number]) Intravenous Solution Start Date 09/25/17 Start Time 10:23 NIHSS Scale ([place]) Time Performed: 09:30 - How Severe is the Stoke Baseline Level of Consciousness: 3=Unresponsive LOC to Questions: 2=Neither correct LOC to commands: 2=Neither correct Best Gaze: 1=Partial gaze palsy Visual: 3=Bilateral Facial: 2=Partial (lower face paralysis) Motor Arm - Left: 4=No movement Motor Arm - Right: 1=Drift noted before 10 sec Motor Leg - Left: 4=No movement Motor Leg - Right: 1=Drift before 5 sec Limb Ataxia: 2=Present both Sensory: 2=Severe to total loss Best Language: 3=Mute Dysarthia: 2=Severe, near unintelligible or worse Extinction & Inattention (Neglect): 2=Profound neglect(does not recognize own hand or orients to one side) Score: 34 Risk Level: Severe Stroke Risk rTPA Inclusion/Exclusion - Refusal of Treatment Patient Refused Treatment: No - Inclusion Criteria for Altepase Patient is 18 years or Older: Yes The Clinical Diagnosis of Ischemic Stroke That is Causing a Potentially Disabling Neurological Deficit: Yes Time of Onset is Well Established to be Less Than 270 Minute Before Treatment Would Begin: No Risk/Benefit Discussed With Patient/Family Member Present: No - Exclusion Criteria for Altepase Evidence of Major Acute Infarct With Signs Greater Than 1/3 MCA Territory: Yes - Scribe Statement The provider has reviewed the documentation as recorded by the Frankie Ham Provider Scribe Attestation: All medical record entries made by the Scribe were at my direction and personally dictated by me. I have reviewed the chart and agree that the record accurately reflects my personal performance of the history, physical exam, medical decision making, and the department course for this patient. I have also personally directed, reviewed, and agree with the discharge instructions and disposition. Disposition/Present on Arrival - Present on Arrival Any Indicators Present on Arrival: No History of DVT/PE: No History of Uncontrolled Diabetes: No Urinary Catheter: No History of Decub. Ulcer: No History Surgical Site Infection Following: None - Disposition Have Diagnosis and Disposition been Completed?: Yes Diagnosis: CVA (cerebral vascular accident), Respiratory failure Disposition: HOSPITALIZED Disposition Time: 09:45 Condition: CRITICAL ED Critical Care Note - Critical Care Note Total Time (mins): 90
--- NOTE | 2017-09-25 13:08 | CP.PCM.CON ---
History of Present Illness - History of Present Illness History of Present Illness: Critical Care Consult Note HPI Patient is 71yo female with PMHx of Afib not on A/C, previous CVA with L sided weakness, HTN, presented with AMS from home. As per the ER staff patient presented AMS, obtunded, intubated for airway protection. Pt was last seen at her baseline last night at 10pm, this morning the could not wake her up. In the ER CT head demonstrated large R acute CVA in the MCA/IRMA territory, given 3% saline bolus 250cc, and started on 50cc/hr. Neurosurgery consulted, no acute NSG intervention. PMHx as above PSHx as above Allergies NKDA Meds as per EMR ROS cannot obtain FHx NC Review of Systems - Review of Systems Review of Systems: as per hpi Past Patient History - Infectious Disease Hx of Infectious Diseases: None - Past Social History Smoking Status: Never Smoked - CARDIAC Hx Atrial Fibrillation: Yes Hx Hypertension: Yes - PULMONARY Hx Respiratory Disorders: No - NEUROLOGICAL Hx Neurological Disorder: Yes HX Cerebrovascular Accident: Yes (left side weakness) - HEENT Hx HEENT Problems: No - RENAL Hx Chronic Kidney Disease: No - ENDOCRINE/METABOLIC Hx Endocrine Disorders: No - HEMATOLOGICAL/ONCOLOGICAL Hx Blood Disorders: No - INTEGUMENTARY Hx Dermatological Problems: No - MUSCULOSKELETAL/RHEUMATOLOGICAL Hx Falls: Yes - GASTROINTESTINAL Hx Gastrointestinal Disorders: Yes Hx Gastroesophageal Reflux: Yes - GENITOURINARY/GYNECOLOGICAL Hx Genitourinary Disorders: No - PSYCHIATRIC Hx Psychophysiologic Disorder: No Hx Substance Use: No - SURGICAL HISTORY Hx Surgeries: No - ANESTHESIA Hx Anesthesia: No Meds Allergies/Adverse Reactions: Allergies Allergy/AdvReac Type Severity Reaction Status Date / Time No Known Allergies Allergy Verified 09/25/17 11:35 - Medications Medications: Current Medications Acetaminophen (Tylenol 325mg Tab) 650 mg PO Q4 PRN PRN Reason: Fever >100.4 F Sodium Chloride (Hypertonic Saline 3%) 500 mls @ 50 mls/hr IV .Q10H HARLAN Last Admin: 09/25/17 10:17 Dose: 50 mls/hr Midazolam 100 mg/100ml in NS (Midazolam 100 Mg/100ml In Ns) 100 mg in 100 mls @ 1 mls/hr IV .Q24H PRN; Protocol; 1 MG/HR PRN Reason: Agitation Last Titration: 09/25/17 11:17 Dose: 3 mg/hr, 3 mls/hr Vancomycin HCl (Vancomycin 1gm) 1 gm in 250 mls @ 167 mls/hr IVPB Q12H HARLAN PRN Reason: Protocol Last Admin: 09/25/17 12:06 Dose: 167 mls/hr Piperacillin Sod/Tazobactam Sod (Zosyn 3.375 In Ns 100ml) 100 mls @ 200 mls/hr IVPB Q6 HARLAN PRN Reason: Protocol Stop: 09/25/17 18:29 Insulin Human Regular (Humulin R Med) 0 units SC ACHS HARLAN PRN Reason: Protocol Physical Exam - Constitutional Appears: Non-toxic, No Acute Distress - Eye Exam Eye Exam: Normal appearance - ENT Exam ENT Exam: Mucous Membranes Moist Additional comments: +bleeding from ETT - Neurological Exam Neurological exam: Altered Additional comments: withdraws to pain RUE/RLE, LLE LUE flaccid Upgoing reflexes Results - Vital Signs Recent Vital Signs: Last Vital Signs Temp 98.4 F 09/25/17 10:14 Pulse 117 H 09/25/17 10:59 Resp 16 09/25/17 10:59 BP 131/104 H 09/25/17 10:59 Pulse Ox 100 09/25/17 10:59 - Labs Result Diagrams: 09/25/17 09:00 09/25/17 09:00 Labs: Laboratory Results - last 24 hr 09/25/17 09/25/17 10:40 11:54 PT 12.1 INR 1.05 APTT 33.0 pCO2 44 pO2 131.0 H HCO3 22.7 ABG pH 7.32 L ABG Total CO2 24.1 ABG O2 Saturation 99.0 H ABG Base Excess -3.5 L ABG Potassium 3.8 Sodium 144.0 Chloride 111.0 H Glucose 148 H Lactate 1.2 Mechanical Rate 16 FiO2 50.0 Tidal Volume 350 PEEP 5 Arterial Blood Potassium 3.8 - Imaging and Cardiology CT scan - head Status: Image reviewed by me, Report reviewed by me Assessment & Plan - Assessment and Plan (Free Text) Assessment: 71yo female a/w acute Large R CVA Acute Right Large CVA MCA/IRMA Territory AMS Respiratory failure Aspiration PNA - currently afebrile, HD stable, comfortable intubated - CT head with Acute Right Large CVA MCA/IRMA Territory with 7mm midline shift, edema - started on 3% saline bolus 250cc, and 50cc/hr, goal Na 150-155 Recomend: - cont with ventilatory support, low tidal vol ventilation, ABG acceptable - panculture, UCx, BCx, Sputum culture - check Procalcitonin - Broad spectrum antibiotiocs, cover aspiration PNA, Vanco, Zosyn - BP control - 3% saline infusion 50cc/hr goal Na 150-155, place central line - repeat CT head in 12 hours - follow up neurology - FS control 140-180 - maintain euthermia - GI ppx, PPI - DVT ppx, SCDs Critical care time 35 minutes
[2017-09-25] MEDS ORDERED: Midazolam 2 MG/2 ML VIAL ONE (13:25)
--- NOTE | 2017-09-25 14:10 | PCM.PROC ---
Procedures Attestation:: I certify that I have explained the specified Operation(s) or Procedure(s), risks, benefits and reasonable alternatives to the Patient and/or other person responsible. The opportunity was given to ask questions and all questions answered - Central Line Placement Right Internal Jugular Triple Lumen Catheter Aseptic technique was employed throughout the procedure: Hand Hygiene done prior to procedure, Full sterile barriers (mask, hair cover, sterile gown, sterile gloves), Full body sterile drape, Chloraprep Antiseptic: 30 second prep for IJ or SC sites CVP Time Out Performed: Yes Pt. Placed on Pulse Ox Monitor: Yes Central Line Prep: Povidone-Iodine 1% Ultrasound Used for Placement: Yes Central Line Lumen Inserted: triple Central Line Length: 16 cm Post Procedure: Sutured in Place, Good Blood Return, All Ports Aspirated, Flushed, Capped, Sterile Dressing Applied Secured by: Suture Post procedure dressing: Clear vapor permeable, Chlorhexidine disc (Biopatch) Post Procedure X-Ray: Yes Patient Tolerated Procedure: No Complications Immediate Complications: None
[2017-09-25] MEDS: Piperacillin/Tazobact 3.375 gm 100 ML IVPB SCH ×2 (15:07→21:36)
[2017-09-25] MEDS ORDERED: Influenza Vaccine 60 mcg/0.5 mL SYR (4YR UP) IM ONE (15:10)
[2017-09-25] MEDS ORDERED: Pneumococcal 23-Valent Vaccine IM ONE (15:10)
[2017-09-25] MEDS ORDERED: Digoxin 500 mcg/2ml (0.5 mg/2ml) Inj IVP ONE (15:44)
--- NOTE | 2017-09-25 15:57 | CP.PCM.PN ---
Subjective - Date & Time of Evaluation Date of Evaluation: 09/25/17 Time of Evaluation: 15:55 - Subjective Subjective: 71 yo f adm via ambulance unresponsive, intubated, hx old r cva, ct showes new r MCA infarct 4mm shift open cisterns pt on ASA and persantine No indication at this time that decompressive craniotomy will reverse condition , and infact increases morbidity and mortality since pt is on blood thinners REcommed cons care as per neurology Objective - Vital Signs/Intake and Output Vital Signs (last 24 hours): Temp Pulse Resp BP Pulse Ox 98.4 F 88 16 150/104 H 100 09/25/17 11:47 09/25/17 15:29 09/25/17 15:29 09/25/17 15:30 09/25/17 15:29 - Medications Medications: Current Medications Acetaminophen (Tylenol 325mg Tab) 650 mg PO Q4 PRN PRN Reason: Fever >100.4 F Acetaminophen (Tylenol 650 Mg Supp) 650 mg RC Q6H PRN PRN Reason: Fever >100.4 F Digoxin (Lanoxin) 0.125 mg IVP 1400 HARLAN Sodium Chloride (Hypertonic Saline 3%) 500 mls @ 50 mls/hr IV .Q10H HARLAN Last Admin: 09/25/17 10:17 Dose: 50 mls/hr Midazolam 100 mg/100ml in NS (Midazolam 100 Mg/100ml In Ns) 100 mg in 100 mls @ 1 mls/hr IV .Q24H PRN; Protocol; 1 MG/HR PRN Reason: Agitation Last Titration: 09/25/17 11:17 Dose: 3 mg/hr, 3 mls/hr Vancomycin HCl (Vancomycin 1gm) 1 gm in 250 mls @ 167 mls/hr IVPB Q12H HARLAN PRN Reason: Protocol Last Admin: 09/25/17 12:06 Dose: 167 mls/hr Piperacillin Sod/Tazobactam Sod (Zosyn 3.375 In Ns 100ml) 100 mls @ 200 mls/hr IVPB Q6 HARLAN PRN Reason: Protocol Stop: 09/25/17 18:29 Last Admin: 09/25/17 15:07 Dose: 200 mls/hr Insulin Human Regular (Humulin R Med) 0 units SC ACHS HARLAN PRN Reason: Protocol Last Admin: 09/25/17 11:30 Dose: Not Given Ondansetron HCl (Zofran Inj) 4 mg IVP Q6H PRN PRN Reason: Nausea/Vomiting Pantoprazole Sodium (Protonix Inj) 40 mg IVP DAILY HARLAN - Labs Labs: PT 12.1 SECONDS (9.4-12.5) 09/25/17 10:40 INR 1.05 (0.93-1.08) 09/25/17 10:40 APTT 33.0 Seconds (25.1-36.5) 09/25/17 10:40
[2017-09-25 16:12] LABS: BLOOD UREA NITROGEN 21 mg/dL (7-21); GFR AFRICAN-AMERICAN > 60; GFR NON-AFRICAN AMERICAN > 60
[2017-09-25 16:30] LABS: B-TYPE NATRIURETIC PEPTIDE 4410 pg/mL (0-450)
[2017-09-25] MEDS: Sodium Chloride 3% 500 ML IV SCH ×2 (17:30→20:10)
[2017-09-25 18:23] LABS: HDL CHOLESTEROL 46 mg/dL (29-60)
[2017-09-25 18:33] LABS: LDL CHOLESTEROL 63 mg/dL (0-129)
--- NOTE | 2017-09-25 19:46 | RAD ---
EXAM: XR Chest, 1 View EXAM DATE/TIME: 09/25/2017 2:08 PM CLINICAL HISTORY: The patient age is 71 years old and is female; Device placement; Other vascular access device placement or adjustment; Central line, non-tunnelled; Additional info: Central line placement Facility exam id and description: Rad chest p chest portable TECHNIQUE: Frontal view of the chest. COMPARISON: CR - CHEST PORTABLE 2016-12-23 22:30 FINDINGS: Lungs: Retrocardiac opacification is identified, suggestive of atelectatic change or infiltrate. Prominent pulmonary vascular markings are identified, compatible with congestive changes. Additional increased interstitial markings also visualized. Pleural space: No pleural effusions. No pneumothorax. Heart: The cardiac silhouette appears enlarged. Mediastinum: There is atherosclerotic calcification of the aortic arch. Bones/joints: There is dextroscoliosis of the thoracic spine. Osteopenia. Degenerative changes are identified within the spine. Tubes, lines and devices: Endotracheal tube is in place with the tip approximately 4.3 cm above the laurel. A right internal jugular central venous catheter is identified, with the catheter tip in the region of the SVC. There is an additional adjacent catheter visualized. IMPRESSION: 1. The cardiac silhouette appears enlarged. 2. Retrocardiac opacification is identified, suggestive of atelectatic change or infiltrate. 3. Prominent pulmonary vascular markings are identified, compatible with congestive changes. Additional increased interstitial markings also visualized. 4. Lines and tubes, as described above. 5. Clinical correlation and follow-up radiographs are recommended.
--- NOTE | 2017-09-25 19:57 | CP.PCM.CON ---
History of Present Illness - History of Present Illness History of Present Illness: Mrs. Flor is a 71-year-old woman with a past medical history of Afib not on A/C , previous CVA with L sided weakness, HTN, who was last seen at her baseline last night at around 10 PM. This morning she was found with left side hemiplegia, and altered mental status. She was brought to the ED and required intubation for airway protection. Her NIHSS was 26. CT scan of the head showed a large right MCA ischemic stroke with midline shift. She was bolused with 250 mL of 3% and admitted to the ICU. Review of Systems - Review of Systems Systems not reviewed;Unavailable: Acuity of Condition, Altered Mental Status, Intubated Past Patient History - Infectious Disease Hx of Infectious Diseases: None - Past Social History Smoking Status: Never Smoked - CARDIAC Hx Atrial Fibrillation: Yes Hx Hypertension: Yes - PULMONARY Hx Respiratory Disorders: No - NEUROLOGICAL Hx Neurological Disorder: Yes HX Cerebrovascular Accident: Yes (left side weakness) - HEENT Hx HEENT Problems: No - RENAL Hx Chronic Kidney Disease: No - ENDOCRINE/METABOLIC Hx Endocrine Disorders: No - HEMATOLOGICAL/ONCOLOGICAL Hx Blood Disorders: No - INTEGUMENTARY Hx Dermatological Problems: No - MUSCULOSKELETAL/RHEUMATOLOGICAL Hx Falls: Yes - GASTROINTESTINAL Hx Gastrointestinal Disorders: Yes Hx Gastroesophageal Reflux: Yes - GENITOURINARY/GYNECOLOGICAL Hx Genitourinary Disorders: No - PSYCHIATRIC Hx Psychophysiologic Disorder: No Hx Substance Use: No - SURGICAL HISTORY Hx Surgeries: No - ANESTHESIA Hx Anesthesia: No Meds Allergies/Adverse Reactions: Allergies Allergy/AdvReac Type Severity Reaction Status Date / Time No Known Allergies Allergy Verified 09/25/17 11:35 - Medications Medications: Current Medications Acetaminophen (Tylenol 325mg Tab) 650 mg PO Q4 PRN PRN Reason: Fever >100.4 F Acetaminophen (Tylenol 650 Mg Supp) 650 mg RC Q6H PRN PRN Reason: Fever >100.4 F Digoxin (Lanoxin) 0.125 mg IVP 1400 HARLAN Midazolam 100 mg/100ml in NS (Midazolam 100 Mg/100ml In Ns) 100 mg in 100 mls @ 1 mls/hr IV .Q24H PRN; Protocol; 1 MG/HR PRN Reason: Agitation Last Titration: 09/25/17 11:17 Dose: 3 mg/hr, 3 mls/hr Vancomycin HCl (Vancomycin 1gm) 1 gm in 250 mls @ 167 mls/hr IVPB Q12H [facility] PRN Reason: Protocol Last Admin: 09/25/17 12:06 Dose: 167 mls/hr Sodium Chloride (Hypertonic Saline 3%) 500 mls @ 40 mls/hr IV .[id number] [facility] Last Admin: 09/25/17 17:30 Dose: 40 mls/hr Insulin Human Regular (Humulin R Med) 0 units SC ACHS [facility] PRN Reason: Protocol Last Admin: 09/25/17 16:30 Dose: Not Given Ondansetron HCl (Zofran Inj) 4 mg IVP Q6H PRN PRN Reason: Nausea/Vomiting Pantoprazole Sodium (Protonix Inj) 40 mg IVP DAILY [facility] Last Admin: 09/25/17 16:00 Dose: 40 mg Physical Exam - Neurological Exam Additional comments: Intubated, off sedation, not opening eyes, not following commands, no attempt at speech or communication. CN 2-12 appear intact. Moves right side spontaneously, left side hemiplgia, anesthesia and neglect. Withdraws somewhat to painful stimulus on the left. Results - Vital Signs Recent Vital Signs: Last Vital Signs Temp 98.4 F 09/25/17 11:47 Pulse 81 09/25/17 19:30 Resp 16 09/25/17 19:30 BP 155/91 H 09/25/17 19:30 Pulse Ox 100 09/25/17 19:30 - Labs Result Diagrams: 09/25/17 09:00 09/25/17 15:45 Labs: Laboratory Results - last 24 hr 09/25/17 09/25/17 09/25/17 10:40 11:54 12:11 PT 12.1 INR 1.05 APTT 33.0 pCO2 44 pO2 131.0 H HCO3 22.7 ABG pH 7.32 L ABG Total CO2 24.1 ABG O2 Saturation 99.0 H ABG Base Excess -3.5 L ABG Potassium 3.8 Sodium 144.0 Chloride 111.0 H Glucose 148 H Lactate 1.2 Mechanical Rate 16 FiO2 50.0 Tidal Volume 350 PEEP 5 Potassium Carbon Dioxide Anion Gap BUN Creatinine Est GFR ( Amer) Est GFR (Non-Af Amer) POC Glucose (mg/dL) 133 H Random Glucose Calcium NT-Pro-B Natriuret Pep Arterial Blood Potassium 3.8 09/25/17 15:45 PT INR APTT pCO2 pO2 HCO3 ABG pH ABG Total CO2 ABG O2 Saturation ABG Base Excess ABG Potassium Sodium 147 Chloride 113 H Glucose Lactate Mechanical Rate FiO2 Tidal Volume PEEP Potassium 4.1 Carbon Dioxide 27 Anion Gap 11 BUN 21 Creatinine 0.7 Est GFR ( Amer) > 60 Est GFR (Non-Af Amer) > 60 POC Glucose (mg/dL) Random Glucose 123 H Calcium 8.0 L NT-Pro-B Natriuret Pep 4410 H Arterial Blood Potassium Assessment & Plan (1) CVA (cerebral vascular accident) Assessment and Plan: Based on the location of the stroke and the size of the stroke, neurosurgery should be consulted for possible right hemicraniectomy if the midline shift increases and her GCS worsens. There is a chronic component to the stroke which may allow for more room for expansion, if needed. I recommend: 1. ICU monitoring with Q 1 hour neurocheck 2. Continue 3% at 50 mL/hr with goal serum sodium 145-150 and osmolarity less than 320 3. Obtain MRI of the brain when stable 4. Echocardiogram with bubble study 5. PT/OT eval and treatment 6. DVT Px 7. Lipid panel 8. NPO till swallow eval 9. Case management consult Thank you. Status: Acute Priority: High
--- NOTE | 2017-09-25 21:06 | CT ---
EXAM: CT Head Without Intravenous Contrast EXAM DATE/TIME: 09/25/2017 8:00 PM CLINICAL HISTORY: The patient age is 71 years old and is female; Abnormal findings; Abnormal radiologic findings of head/skull; Ischemia; Additional info: Monitor CVA Facility exam id and description: Ct heads head w/o contrast TECHNIQUE: Axial computed tomography images of the head/brain without intravenous contrast. All CT scans at this facility use one or more dose reduction techniques, viz.: automated exposure control; ma/kV adjustment per patient size (including targeted exams where dose is matched to indication; i.e. head); or iterative reconstruction technique. Coronal and sagittal reformatted images were created and reviewed. COMPARISON: CT - HEAD W/O CONTRAST 2017-09-25 09:11 FINDINGS: Brain: Extensive hypodensity is visualized within the right cerebral hemisphere, right insular cortex, and right basal ganglia, stable compared to the prior study. This is consistent with acute or subacute infarction. Hypodense areas of encephalomalacia are visualized within the right occipital and posterior temporal/parietal lobes, consistent with old infarcts. There are scattered foci of hypodensity within the left cerebral white matter, likely representing small vessel ischemic disease in a patient this age. The acuity of the white matter disease is indeterminate. No acute intracranial hemorrhage is seen. There is effacement of the right cerebral sulci. Midline shift: There is midline shift to the left of approximately 4 mm. This is stable. Ventricles: No ventriculomegaly. Bones/joints: The calvarium demonstrates no evidence for a depressed fracture. Soft tissues: No acute abnormality. Vasculature: There is atherosclerotic calcification of the cavernous internal carotid arteries and distal vertebral arteries. Sinuses: There is mucosal thickening of the bilateral maxillary sinuses and scattered ethmoid air cells. Mucosal thickening/effusion is visualized within the left sphenoid sinus. Mastoid air cells: No mastoid effusion. IMPRESSION: 1. Extensive hypodensity is visualized within the right cerebral hemisphere, right insular cortex, and right basal ganglia, stable compared to the prior study. This is consistent with acute or subacute infarction. This can be further evaluated with MRI. 2. Hypodense areas of encephalomalacia are visualized within the right occipital and posterior temporal/parietal lobes, consistent with old infarcts. 3. No acute intracranial hemorrhage. 4. There is midline shift to the left of approximately 4 mm. This is stable. 5. There are scattered foci of hypodensity within the left cerebral white matter, likely representing small vessel ischemic disease in a patient this age. 6. Paranasal sinus disease is noted above.
[2017-09-26] MEDS: Vancomycin 1gm in NS 250ml 1 GM/250 ML BAG IVPB SCH ×2 (00:04→12:09)
[2017-09-26 00:32] LABS: BLOOD UREA NITROGEN 19 mg/dL (7-21); CALCIUM 8.2 mg/dL (8.4-10.5); GFR AFRICAN-AMERICAN > 60; GFR NON-AFRICAN AMERICAN > 60
[2017-09-26 06:00] LABS: BASO # 0.01 K/mm3 (0.0-2.0); BASO % 0.1 % (0.0-3.0); GRAN # 7.3 (1.4-6.5); GRAN % 81.4 % (50.0-68.0); HEMOGLOBIN 13.3 g/dL (12.0-16.0); LYMPH # 0.9 (1.2-3.4); LYMPH % 9.5 % (22.0-35.0); MEAN CELL VOLUME 101.5 fl (80.0-105.0); MEAN CORPUSCULAR HEMOGLOBIN 32.5 pg (25.0-35.0); MEAN PLATELET VOLUME 9.8 fl (7.0-11.0); MONO # 0.8 (0.1-0.6); RBC 4.09 10^6/uL (3.5-6.1); RED CELL DISTRIBUTION WIDTH 13.2 % (11.5-14.5)
[2017-09-26 06:11] LABS: ALB/GLOB RATIO 1.1 (1.1-1.8); ALBUMIN 3.7 g/dL (3.0-4.8); ALT/SGPT 29 U/L (7-56); AST/SGOT 36 U/L (14-36); BLOOD UREA NITROGEN 20 mg/dL (7-21); CALCIUM 8.1 mg/dL (8.4-10.5); GFR AFRICAN-AMERICAN > 60; GFR NON-AFRICAN AMERICAN > 60
[2017-09-26 06:25] LABS: ARTERIAL BLOOD GAS HCO3 24.1 mmol/L (21-28); ARTERIAL BLOOD GAS O2 SAT 99.3 % (95-98); ARTERIAL BLOOD GAS PCO2 38 mm/Hg (35-45); ARTERIAL BLOOD GAS PH 7.41 (7.35-7.45); ARTERIAL BLOOD GAS TCO2 25.3 mmol.L (22-28)
[2017-09-26] MEDS: Insulin Reg-MEDIUM-Coverage SC SCH ×4 (07:44→22:27)
--- NOTE | 2017-09-26 09:54 | RAD ---
HISTORY: s/p intubation COMPARISON: 09/25/2017 FINDINGS: LUNGS: There is mild interval improvement in aeration with probable mild decrease in vascular congestion and markings from prior study. Mild subsegmental atelectasis or volume loss persists at the lung bases. Endotracheal tube is unchanged. There is a new right internal jugular vein CVP with its tip in the superior vena cava. No pneumothorax is noted. PLEURA: No pneumothorax. No effusion. CARDIOVASCULAR: Improved OSSEOUS STRUCTURES: No significant abnormalities. VISUALIZED UPPER ABDOMEN: Normal. OTHER FINDINGS: None. IMPRESSION: Status post intubation. Status post right internal jugular vein CVP with its tip in the superior vena cava. No pneumothorax. Interval decreasing congestion with improved aeration.
--- NOTE | 2017-09-26 10:26 | CP.PCM.PN ---
Subjective - Date & Time of Evaluation Date of Evaluation: 09/26/17 Time of Evaluation: 07:05 - Subjective Subjective: Pt seen and examined, remains intubated, sedate,d had repeat CTH done last night which was stable, no change. Objective - Vital Signs/Intake and Output Vital Signs (last 24 hours): Temp Pulse Resp BP Pulse Ox 98.1 F 101 H 17 139/83 98 09/26/17 06:00 09/26/17 06:10 09/26/17 06:10 09/26/17 06:00 09/26/17 06:10 Intake and Output: 09/26/17 09/26/17 06:59 18:59 Intake Total 45 12 Balance 45 12 - Medications Medications: Current Medications Acetaminophen (Tylenol 325mg Tab) 650 mg PO Q4 PRN PRN Reason: Fever >100.4 F Acetaminophen (Tylenol 650 Mg Supp) 650 mg RC Q6H PRN PRN Reason: Fever >100.4 F Last Admin: 09/25/17 21:37 Dose: 650 mg Digoxin (Lanoxin) 0.125 mg IVP 1400 HARLAN Vancomycin HCl (Vancomycin 1gm) 1 gm in 250 mls @ 167 mls/hr IVPB Q12H [facility] PRN Reason: Protocol Last Admin: 09/26/17 00:04 Dose: 167 mls/hr Sodium Chloride (Hypertonic Saline 3%) 500 mls @ 40 mls/hr IV .[id number] [facility] Last Admin: 09/25/17 20:10 Dose: 40 mls/hr Propofol (Diprivan) 1,000 mg in 100 mls @ 1.579 mls/hr IV .Q24H PRN; Protocol; 5 MCG/KG/MIN PRN Reason: TITRATE PER MD ORDER Insulin Human Regular (Humulin R Med) 0 units SC ACHS [facility] PRN Reason: Protocol Last Admin: 09/26/17 07:44 Dose: Not Given Ondansetron HCl (Zofran Inj) 4 mg IVP Q6H PRN PRN Reason: Nausea/Vomiting Pantoprazole Sodium (Protonix Inj) 40 mg IVP DAILY [facility] Last Admin: 09/26/17 09:36 Dose: 40 mg - Labs Labs: 09/26/17 05:40 09/26/17 05:40 PT 12.1 SECONDS (9.4-12.5) 09/25/17 10:40 INR 1.05 (0.93-1.08) 09/25/17 10:40 APTT 33.0 Seconds (25.1-36.5) 09/25/17 10:40 - Constitutional Appears: Non-toxic - Eye Exam Eye Exam: Normal appearance - ENT Exam ENT Exam: Mucous Membranes Moist - Respiratory Exam Respiratory Exam: Clear to Ausculation Bilateral, NORMAL BREATHING PATTERN - Cardiovascular Exam Cardiovascular Exam: REGULAR RHYTHM, +S1, +S2 - GI/Abdominal Exam GI & Abdominal Exam: Soft, Normal Bowel Sounds - Extremities Exam Extremities Exam: Normal Inspection - Neurological Exam Additional comments: LUE/LLL does not withdraw to pain, upgoing toes RUE/RLE withdraws to pain, localizes Assessment and Plan - Assessment and Plan (Free Text) Assessment: 71yo female a/w acute Large R CVA Acute Right Large CVA MCA/IRMA Territory AMS Respiratory failure Aspiration PNA - currently afebrile, HD stable, comfortable intubated, sedated - CT head with Acute Right Large CVA MCA/IRMA Territory with 4mm midline shift, edema, repeat CT head done which is stable, no change - started on 3% saline bolus 250cc, and 40cc/hr, goal Na 145-150, neurology and neurosurgery following Recomend: - cont with ventilatory support, low tidal vol ventilation, ABG acceptable - repeat CXR with improvement of RLL opacity, likely signifying improved congestion, would check procal, if negative, DC antibiotics - Broad spectrum antibiotiocs, cover aspiration PNA, Vanco, Zosyn for now - BP control - 3% saline infusion 40cc/hr goal Na 145-150 - q1hr neuro checks for first 24h - MRI brain - DC versed, switch to Propofol - replete calcium - follow up neurology - ECHO with bubble - FS control 140-180 - maintain euthermia - GI ppx, PPI - DVT ppx, SCDs Critical care time 30 minutes
--- NOTE | 2017-09-26 10:36 | CARD ---
APPROVED REPORT EKG Measurement Heart [id number] <Conclusion> Atrial fibrillation with rapid ventricular response Nonspecific ST and T wave abnormality LVH by voltage
[2017-09-26] MEDS: Propofol 10 mg/ml 1,000 MG/100 ML VIAL IV PRN (10:52)
[2017-09-26 11:19] LABS: HDL CHOLESTEROL 40 mg/dL (29-60)
[2017-09-26 11:29] LABS: LDL CHOLESTEROL 60 mg/dL (0-129)
[2017-09-26 12:45] LABS: BLOOD UREA NITROGEN 19 mg/dL (7-21); CALCIUM 8.2 mg/dL (8.4-10.5); GFR AFRICAN-AMERICAN > 60; GFR NON-AFRICAN AMERICAN > 60
[2017-09-26] MEDS: Digoxin 500 mcg/2ml (0.5 mg/2ml) Inj IVP SCH (14:10)
[2017-09-26] MEDS: Sodium Chloride 3% 500 ML IV SCH (16:00)
--- NOTE | 2017-09-26 16:20 | CT ---
PROCEDURE: CT HEAD WITHOUT CONTRAST. HISTORY: CVA COMPARISON: Yesterday TECHNIQUE: Axial computed tomography images were obtained through the head/brain without intravenous contrast. Radiation dose: Total exam DLP = 883 mGy-cm. This CT exam was performed using one or more of the following dose reduction techniques: Automated exposure control, adjustment of the mA and/or kV according to patient size, and/or use of iterative reconstruction technique. FINDINGS: HEMORRHAGE: No intracranial hemorrhage is noted. Dense right MCA sign is once again appreciated BRAIN: There is significant increase in evolving right cerebral hemispheric infarct with increased cortical effacement and edema noted. There appears to be probable mild increase in mass effect especially in the frontal lobe region with increased effacement of the right lateral ventricle and mild right to left midline shift greatest anteriorly. No new left cerebral edema or infarct is noted. Small vessel changes seen in the left parietal white matter. Posterior fossa is unchanged. VENTRICLES: Increased effacement of the right lateral ventricle secondary to increasing edema from the evolving large right cerebral hemispheric infarcts. Shift measures at least 8 millimeters. CALVARIUM: Unremarkable. PARANASAL SINUSES: Unchanged MASTOID AIR CELLS: Unremarkable as visualized. No inflammatory changes. OTHER FINDINGS: None. IMPRESSION: Evolving large right cerebral hemispheric infarcts with increasing cortical effacement and edema as well as increasing mass effect and mild new right to left of midline shift. Examination was placed into the critical red study tag folder.
[2017-09-26] MEDS ORDERED: Sodium Chloride 3% 500 ML IV SCH (16:51)
[2017-09-26] MEDS ORDERED: Sodium Chloride 3% 250 ML IV SCH (17:15)
[2017-09-26 18:58] LABS: BLOOD UREA NITROGEN 22 mg/dL (7-21); GFR AFRICAN-AMERICAN > 60; GFR NON-AFRICAN AMERICAN > 60
[2017-09-26] MEDS ORDERED: Labetalol 5 mg/ml Inj 20ML IV PRN (22:18)
--- NOTE | 2017-09-27 00:01 | PN ---
DATE: 09/26/2017 CRITICAL CARE PROGRESS NOTE SUBJECTIVE: This 71-year-old female was examined in ICU bed 7 at [facility]. She remains unresponsive, intubated and with a persistent paralysis of her left arm and leg in the setting of an acute large right-sided cerebrovascular accident. Of note, the patient did have a repeat CT of the head that showed no acute changes compared to yesterday and findings are consistent with an acute right large CVA involving her right middle cerebral artery and anterior cerebral artery territories. She remains with altered mental status and because of respiratory failure remains on ventilatory support and medication for aspiration pneumonia. At present, she is currently afebrile. She is intubated and sedated and is remaining on 3% saline as outlined by neurology to maintain a serum sodium of 145 to 150 to ameliorate any issues of cerebral edema. There have been no reports of fever, chills, chest pain or shortness of breath. PHYSICAL EXAMINATION: VITAL SIGNS: She is in an atrial fibrillation rhythm on the satellite project site monitor. Temperature 99.8, respirations 16, pulse 96, blood pressure 135/83, pulse ox 98%, 500 mL urine output via Cabezas catheter. HEAD: Normocephalic, atraumatic. EYES: No icterus. EARS: Clear. THROAT: Noninjected. NECK: Supple. HEART: Irregular S1, S2. LUNGS: No wheezing. ABDOMEN: Soft. EXTREMITIES: No edema. SKIN: Without rash. NEUROLOGICAL: Sedated. The patient with persistent left hemiplegia. VASCULAR: Legs warm to touch. PSYCHOLOGICAL: Could not be assessed. LABORATORY DATA: White count 9000, hemoglobin 13.3, hematocrit 41.5, platelets 95,000. PT/INR 1.05, PTT 33.0. Sodium 151, K 3.7, chloride 118, bicarb 26, BUN 19, creatinine 0.8, random blood sugar 128. Bilirubin 0.4, cholesterol 126, triglycerides 99, LDL 60, HDL 40. Urinalysis unremarkable. Urine culture no growth. Blood culture no growth at 24 hours. IMPRESSION: A 71-year-old female with chronic atrial fibrillation on no outpatient anticoagulation admitted with right middle cerebral artery, right anterior cerebral artery cerebrovascular accident with left hemiplegia, respiratory failure, altered mental status, encephalopathy, history of hyperlipidemia and chronic hypertension. PLAN: Will be to maintain this patient in critical care while continuing regular insulin coverage a.c. meals at bedtime, 3% hypertonic saline at 40 mL an hour while trying to maintain serum sodium levels 145 to 150 mEq/l. She will continue on neuro checks q. 1 hour. She is ordered to have an MRI of the brain. She will continue on IV sedation with neurological followup and has been scheduled for an echo with bubble test when medically stable. She is on GI prophylaxis, DVT prophylaxis with antiembolism sequential compression device stockings. She will have a comprehensive metabolic panel, CBC a.m., procalcitonin level, digoxin 0.25 mg IV daily, IV Protonix daily. Followup chest x-rays while intubated, followup head CT, mechanical ventilatory support, physical therapy for bedside range of motion. Additional testing and intervention will be entertained based on the patient's clinical progress. 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 Greater than 35 minutes was spent in the intensive care management of this patient today. All questions were answered. Hortencia Manriquez MD [facility]
[2017-09-27 00:57] LABS: BLOOD UREA NITROGEN 22 mg/dL (7-21); CALCIUM 8.1 mg/dL (8.4-10.5); GFR AFRICAN-AMERICAN > 60; GFR NON-AFRICAN AMERICAN > 60
[2017-09-27 05:06] LABS: GRAN # 6.15 (1.4-6.5); GRAN % 79.4 % (50.0-68.0); HEMOGLOBIN 12.8 g/dL (12.0-16.0); LYMPH % 12.5 % (22.0-35.0); MEAN CELL VOLUME 102.3 fl (80.0-105.0); MEAN CORPUSCULAR HEMOGLOBIN 32.6 pg (25.0-35.0); MEAN CORPUSCULAR HGB CONC 31.8 g/dl (31.0-37.0); MEAN PLATELET VOLUME 9.9 fl (7.0-11.0); MONO # 0.6 (0.1-0.6); MONO % 8.1 % (1.0-6.0); RBC 3.93 10^6/uL (3.5-6.1); RED CELL DISTRIBUTION WIDTH 13.5 % (11.5-14.5); WHITE BLOOD COUNT 7.8 10^3/ul (4.5-11.0)
[2017-09-27 05:36] LABS: ALBUMIN 3.4 g/dL (3.0-4.8); ALT/SGPT 25 U/L (7-56); AST/SGOT 37 U/L (14-36); BLOOD UREA NITROGEN 22 mg/dL (7-21); CALCIUM 8.3 mg/dL (8.4-10.5); GFR AFRICAN-AMERICAN > 60; GFR NON-AFRICAN AMERICAN > 60
[2017-09-27] MEDS: Propofol 10 mg/ml 1,000 MG/100 ML VIAL IV PRN (05:39)
[2017-09-27 05:57] LABS: ARTERIAL BLOOD GAS HCO3 21.9 mmol/L (21-28); ARTERIAL BLOOD GAS O2 SAT 98.7 % (95-98); ARTERIAL BLOOD GAS PCO2 33 mm/Hg (35-45); ARTERIAL BLOOD GAS PH 7.43 (7.35-7.45); ARTERIAL BLOOD GAS TCO2 22.9 mmol.L (22-28)
--- NOTE | 2017-09-27 07:42 | CP.PCM.PN ---
Subjective - Date & Time of Evaluation Date of Evaluation: 09/27/17 Time of Evaluation: 07:32 - Subjective Subjective: Ms. Flor was seen and examined at the bedside in ICU. She remains on mechanical ventilator on assist control mode with Propofol at 5 mcg/kg/hr for sedation. GCS -4T. Her pupils are unequal with 4 mm in the right and 3 mm in the left.She moves her right arm and right lower extremities with pain stimuli. She remains with left side paralysis. Her Singh-164 this am, hypertonic solution 3% is on hold. Her heart rate remains a-fib. but controlled HR-84. There was no untoward events overnight. Objective - Vital Signs/Intake and Output Vital Signs (last 24 hours): Temp Pulse Resp BP Pulse Ox 97.8 F 71 18 152/84 H 100 09/26/17 20:00 09/27/17 07:00 09/27/17 07:00 09/27/17 07:00 09/27/17 07:00 Intake and Output: 09/27/17 09/27/17 06:59 18:59 Intake Total 100 Balance 100 - Medications Medications: Current Medications Acetaminophen (Tylenol 325mg Tab) 650 mg PO Q4 PRN PRN Reason: Fever >100.4 F Acetaminophen (Tylenol 650 Mg Supp) 650 mg RC Q6H PRN PRN Reason: Fever >100.4 F Last Admin: 09/26/17 12:08 Dose: 650 mg Digoxin (Lanoxin) 0.125 mg IVP 1400 HARLAN Last Admin: 09/26/17 14:10 Dose: 0.125 mg Propofol (Diprivan) 1,000 mg in 100 mls @ 1.579 mls/hr IV .Q24H PRN; Protocol; 5 MCG/KG/MIN PRN Reason: TITRATE PER MD ORDER Last Admin: 09/27/17 05:39 Dose: 5 mcg/kg/min, 1.579 mls/hr Sodium Chloride (Hypertonic Saline 3%) 500 mls @ 50 mls/hr IV .Q10H [facility] Sodium Chloride (Hypertonic Saline 3%) 250 mls @ 100 mls/hr IV .Q2H30M [facility] Last Admin: 09/26/17 17:47 Dose: 100 mls/hr Insulin Human Regular (Humulin R Med) 0 units SC ACHS [facility] PRN Reason: Protocol Last Admin: 09/26/17 22:27 Dose: Not Given Labetalol HCl (Trandate) 5 mg IV Q4H PRN PRN Reason: Systolic Blood Pressure Ondansetron HCl (Zofran Inj) 4 mg IVP Q6H PRN PRN Reason: Nausea/Vomiting Pantoprazole Sodium (Protonix Inj) 40 mg IVP DAILY [facility] Last Admin: 09/26/17 09:36 Dose: 40 mg - Labs Labs: 09/27/17 05:00 09/27/17 05:00 PT 12.1 SECONDS (9.4-12.5) 09/25/17 10:40 INR 1.05 (0.93-1.08) 09/25/17 10:40 APTT 33.0 Seconds (25.1-36.5) 09/25/17 10:40 - Constitutional Appears: No Acute Distress - Head Exam Head Exam: NORMAL INSPECTION - Eye Exam Pupil Exam: Fixed Additional comments: 4 mm right, 3 mm in the left. - Neurological Exam Neuro motor strength exam: Left Upper Extremity: 0, Right Upper Extremity: 2/1, Left Lower Extremity: 0, Right Lower Extremity: 2/1 Additional comments: She has GCS-4T. Assessment and Plan (1) CVA (cerebral vascular accident) Assessment & Plan: Case discussed with Dr. Silva, continue all current medical regimen including monitoring na and serum osmolality levels. Recommend repeat CT of the head without contrast today. Status: Acute
[2017-09-27] MEDS: Insulin Reg-MEDIUM-Coverage SC SCH ×4 (08:17→22:32)
--- NOTE | 2017-09-27 10:14 | CP.PCM.PN ---
Subjective - Date & Time of Evaluation Date of Evaluation: 09/27/17 Time of Evaluation: 10:11 - Subjective Subjective: I have reviewed todays CT there s no reading yet, but to my review the infarct encpmpases the entire right hemishphere, and appear to have extended into the right reymundo and midbrain This portends a terrible outcome the cisterns around the brain stem remain open I do not believe that doing a craniectomy will change the outcome. in addition it is noted that her platlets have progressivly droped since adm and now are at 86 Objective - Vital Signs/Intake and Output Vital Signs (last 24 hours): Temp Pulse Resp BP Pulse Ox 97.8 F 71 18 152/84 H 100 09/26/17 20:00 09/27/17 07:00 09/27/17 07:00 09/27/17 07:00 09/27/17 07:00 Intake and Output: 09/27/17 09/27/17 06:59 18:59 Intake Total 100 Balance 100 - Medications Medications: Current Medications Acetaminophen (Tylenol 325mg Tab) 650 mg PO Q4 PRN PRN Reason: Fever >100.4 F Acetaminophen (Tylenol 650 Mg Supp) 650 mg RC Q6H PRN PRN Reason: Fever >100.4 F Last Admin: 09/26/17 12:08 Dose: 650 mg Digoxin (Lanoxin) 0.125 mg IVP 1400 HARLAN Last Admin: 09/26/17 14:10 Dose: 0.125 mg Propofol (Diprivan) 1,000 mg in 100 mls @ 1.579 mls/hr IV .Q24H PRN; Protocol; 5 MCG/KG/MIN PRN Reason: TITRATE PER MD ORDER Last Admin: 09/27/17 05:39 Dose: 5 mcg/kg/min, 1.579 mls/hr Sodium Chloride (Hypertonic Saline 3%) 500 mls @ 50 mls/hr IV .Q10H [facility] Insulin Human Regular (Humulin R Med) 0 units SC ACHS [facility] PRN Reason: Protocol Last Admin: 09/27/17 08:17 Dose: Not Given Labetalol HCl (Trandate) 5 mg IV Q4H PRN PRN Reason: Systolic Blood Pressure Ondansetron HCl (Zofran Inj) 4 mg IVP Q6H PRN PRN Reason: Nausea/Vomiting Pantoprazole Sodium (Protonix Inj) 40 mg IVP DAILY [facility] Last Admin: 09/26/17 09:36 Dose: 40 mg - Labs Labs: 09/27/17 05:00 09/27/17 05:00 PT 12.1 SECONDS (9.4-12.5) 09/25/17 10:40 INR 1.05 (0.93-1.08) 09/25/17 10:40 APTT 33.0 Seconds (25.1-36.5) 09/25/17 10:40
[2017-09-27] MEDS: Nicardipine 20 MG/200 ML 20 MG/200 ML BAG IV PRN ×3 (10:30→22:21)
--- NOTE | 2017-09-27 10:39 | CT ---
PROCEDURE: CT HEAD WITHOUT CONTRAST. HISTORY: stroke COMPARISON: Noncontrast head CT performed 09/26/17 TECHNIQUE: Axial computed tomography images were obtained through the head/brain without intravenous contrast. Radiation dose: Total exam DLP = 996.99 mGy-cm. This CT exam was performed using one or more of the following dose reduction techniques: Automated exposure control, adjustment of the mA and/or kV according to patient size, and/or use of iterative reconstruction technique. FINDINGS: HEMORRHAGE: No intracranial hemorrhage. Dense right MCA sign. BRAIN: Diffuse hypodense encephalomalacia throughout the right MCA and IRMA distributions. Encephalomalacia is noted to a lesser extent within the right HIGH LEAD YARDER distribution. Midline shift to the left measuring approximately 1.5 cm. Evidence of subfalcine herniation. VENTRICLES: Effacement of the right lateral ventricle. No hydrocephalus. CALVARIUM: Unremarkable. PARANASAL SINUSES: Unremarkable as visualized. No significant inflammatory changes. MASTOID AIR CELLS: Unremarkable as visualized. No inflammatory changes. OTHER FINDINGS: Partially imaged endotracheal tube. IMPRESSION: Diffuse hypodense encephalomalacia throughout the right MCA and IRMA distributions. Encephalomalacia is noted to a lesser extent within the right HIGH LEAD YARDER distribution. Midline shift to the left measuring approximately 1.5 cm. Evidence of subfalcine herniation. Dense right MCA sign.
--- NOTE | 2017-09-27 10:49 | CP.PCM.PN ---
Subjective - Date & Time of Evaluation Date of Evaluation: 09/27/17 Time of Evaluation: 07:20 - Subjective Subjective: Pt seen and examined, remains intubated on propofol, repeat CT head with worsening dense encephalomalacia/CVA with 1.5cm midline shift. Objective - Vital Signs/Intake and Output Vital Signs (last 24 hours): Temp Pulse Resp BP Pulse Ox 97.8 F 93 H 18 158/59 H 100 09/26/17 20:00 09/27/17 10:30 09/27/17 10:30 09/27/17 10:30 09/27/17 10:30 Intake and Output: 09/27/17 09/27/17 06:59 18:59 Intake Total 100 Balance 100 - Medications Medications: Current Medications Acetaminophen (Tylenol 325mg Tab) 650 mg PO Q4 PRN PRN Reason: Fever >100.4 F Acetaminophen (Tylenol 650 Mg Supp) 650 mg RC Q6H PRN PRN Reason: Fever >100.4 F Last Admin: 09/26/17 12:08 Dose: 650 mg Dexamethasone (Decadron Inj) 10 mg IVP Q8H [facility] Last Admin: 09/27/17 10:31 Dose: 10 mg Digoxin (Lanoxin) 0.125 mg IVP 1400 [facility] Last Admin: 09/26/17 14:10 Dose: 0.125 mg Propofol (Diprivan) 1,000 mg in 100 mls @ 1.579 mls/hr IV .Q24H PRN; Protocol; 5 MCG/KG/MIN PRN Reason: TITRATE PER MD ORDER Last Admin: 09/27/17 05:39 Dose: 5 mcg/kg/min, 1.579 mls/hr Sodium Chloride (Hypertonic Saline 3%) 500 mls @ 50 mls/hr IV .Q10H [facility] Nicardipine HCl (Cardene Iv Premix) 20 mg in 200 mls @ 50 mls/hr IV .Q4H PRN; Protocol; 5 MG/HR PRN Reason: TITRATE PER MD ORDER Last Admin: 09/27/17 10:30 Dose: 5 mg/hr, 50 mls/hr Insulin Human Regular (Humulin R Med) 0 units SC ACHS [facility] PRN Reason: Protocol Last Admin: 09/27/17 08:17 Dose: Not Given Labetalol HCl (Trandate) 5 mg IV Q4H PRN PRN Reason: Systolic Blood Pressure Ondansetron HCl (Zofran Inj) 4 mg IVP Q6H PRN PRN Reason: Nausea/Vomiting Pantoprazole Sodium (Protonix Inj) 40 mg IVP DAILY [facility] Last Admin: 09/27/17 09:58 Dose: 40 mg - Labs Labs: 09/27/17 05:00 09/27/17 05:00 PT 12.1 SECONDS (9.4-12.5) 09/25/17 10:40 INR 1.05 (0.93-1.08) 09/25/17 10:40 APTT 33.0 Seconds (25.1-36.5) 09/25/17 10:40 - Constitutional Appears: No Acute Distress - Eye Exam Pupil Exam: Fixed - ENT Exam ENT Exam: Mucous Membranes Moist - Respiratory Exam Respiratory Exam: Clear to Ausculation Bilateral, NORMAL BREATHING PATTERN - Cardiovascular Exam Cardiovascular Exam: REGULAR RHYTHM, +S1, +S2 - GI/Abdominal Exam GI & Abdominal Exam: Soft, Normal Bowel Sounds - Extremities Exam Extremities Exam: Pedal Edema - Neurological Exam Additional comments: withdraws to pain on RUE/RLE, LUE/LLL no withdrawal to pain Assessment and Plan - Assessment and Plan (Free Text) Assessment: 71yo female a/w acute Large R CVA with midline shift 1.5cm Acute Right Large CVA MCA/IRMA Territory AMS Respiratory failure Aspiration PNA - currently afebrile, HD stable - repeat CT head with Acute Right Large CVA MCA/IRMA Territory with 1.5cm midline shift, hypodense ecephalomalacia, edema, evidence of subfalcine herniation - OFF 3% saline, Na 164 - neurology, and neurosurgery following, no neurosurgical intervention - extremely poor prognosis, awaiting son and daughter to come in Recomend: - cont with ventilatory support, low tidal vol ventilation, - monitor off ABx - BP control, start Cardene drip - hold 3% saline, Na 164 - consider mannitol - neuro checks - cont Propofol - follow up neurology - ECHO with bubble - FS control 140-180 - maintain euthermia - GI ppx, PPI - DVT ppx, SCDs - Extremely poor prognosis, awaiting family to come in to have family discussion Critical care time 40 minutes
--- NOTE | 2017-09-27 11:37 | RAD ---
HISTORY: s/p intubation COMPARISON: Chest x-ray performed 09/26/17 TECHNIQUE: Chest, one view. FINDINGS: Right IJ approach central venous catheter extends to the SVC. Endotracheal tube terminates approximately 3.8 cm above the level the laurel. LUNGS: Mild pulmonary venous congestion. Left basilar atelectasis/ infiltrate and or small pleural effusion. No definite pneumothorax. CARDIOVASCULAR: Cardiomegaly. Atherosclerotic calcifications of the aorta. Right hilar prominence. OSSEOUS STRUCTURES: Degenerative changes. VISUALIZED UPPER ABDOMEN: Unremarkable. OTHER FINDINGS: None. IMPRESSION: Support lines and tubes as above. Mild pulmonary venous congestion. Left basilar atelectasis/ infiltrate and or small effusion. Cardiomegaly. Atherosclerotic calcifications. Right hilar prominence.
[2017-09-27 13:15] LABS: BLOOD UREA NITROGEN 25 mg/dL (7-21); CALCIUM 8.6 mg/dL (8.4-10.5); GFR AFRICAN-AMERICAN > 60; GFR NON-AFRICAN AMERICAN > 60
[2017-09-27] MEDS: Digoxin 500 mcg/2ml (0.5 mg/2ml) Inj IVP SCH (13:28)
[2017-09-27] MEDS: Lactated Ringer's 1,000 ML IV SCH (14:00)
[2017-09-27 19:28] LABS: BLOOD UREA NITROGEN 27 mg/dL (7-21); CALCIUM 8.6 mg/dL (8.4-10.5); GFR AFRICAN-AMERICAN > 60; GFR NON-AFRICAN AMERICAN > 60
[2017-09-28] MEDS: Lactated Ringer's 1,000 ML IV SCH (03:14)
[2017-09-28] MEDS: Nicardipine 20 MG/200 ML 20 MG/200 ML BAG IV PRN ×2 (07:08→17:40)
--- NOTE | 2017-09-28 07:30 | CP.PCM.PN ---
Subjective - Date & Time of Evaluation Date of Evaluation: 09/28/17 Time of Evaluation: 07:27 - Subjective Subjective: Ms. Flor was seen and examined at the ICU. She remains on mechanical ventilator with no sedation. GCS 3T. Her pupils are 5 mm non-reactive to light, remains with gag reflex and response to pain stimuli. The family were updated yesterday with her condition and prognosis. There is no final decision to her care. Repeat CT of the head showed midline shift to the left measuring 1.5 cm There is evidence of subfalcine herniation.There was no untoward events overnight. Objective - Vital Signs/Intake and Output Vital Signs (last 24 hours): Temp Pulse Resp BP Pulse Ox 99.5 F 78 21 114/50 L 98 09/28/17 04:00 09/28/17 06:15 09/28/17 06:15 09/28/17 06:15 09/28/17 06:15 Intake and Output: 09/28/17 09/28/17 06:59 18:59 Intake Total 1565 Output Total 350 Balance 1215 - Medications Medications: Current Medications Acetaminophen (Tylenol 325mg Tab) 650 mg PO Q4 PRN PRN Reason: Fever >100.4 F Acetaminophen (Tylenol 650 Mg Supp) 650 mg RC Q6H PRN PRN Reason: Fever >100.4 F Last Admin: 09/27/17 16:28 Dose: 650 mg Dexamethasone (Decadron Inj) 10 mg IVP Q8H [facility] Last Admin: 09/28/17 03:06 Dose: 10 mg Digoxin (Lanoxin) 0.125 mg IVP 1400 [facility] Last Admin: 09/27/17 13:28 Dose: 0.125 mg Propofol (Diprivan) 1,000 mg in 100 mls @ 1.579 mls/hr IV .Q24H PRN; Protocol; 5 MCG/KG/MIN PRN Reason: TITRATE PER MD ORDER Last Titration: 09/27/17 18:30 Dose: 0 mcg/kg/min, 0 mls/hr Sodium Chloride (Hypertonic Saline 3%) 500 mls @ 50 mls/hr IV .Q10H [facility] Nicardipine HCl (Cardene Iv Premix) 20 mg in 200 mls @ 50 mls/hr IV .Q4H PRN; Protocol; 5 MG/HR PRN Reason: TITRATE PER MD ORDER Last Admin: 09/28/17 07:08 Dose: 2.5 mg/hr, 25 mls/hr Lactated Ringer's (Lactated Ringer's) 1,000 mls @ 75 mls/hr IV .[id number] [facility] Last Admin: 09/28/17 03:14 Dose: 75 mls/hr Insulin Human Regular (Humulin R Med) 0 units SC ACHS [facility] PRN Reason: Protocol Last Admin: 09/27/17 22:32 Dose: Not Given Labetalol HCl (Trandate) 5 mg IV Q4H PRN PRN Reason: Systolic Blood Pressure Ondansetron HCl (Zofran Inj) 4 mg IVP Q6H PRN PRN Reason: Nausea/Vomiting Pantoprazole Sodium (Protonix Inj) 40 mg IVP DAILY [facility] Last Admin: 09/27/17 09:58 Dose: 40 mg - Labs Labs: 09/27/17 05:00 09/27/17 18:40 PT 12.1 SECONDS (9.4-12.5) 09/25/17 10:40 INR 1.05 (0.93-1.08) 09/25/17 10:40 APTT 33.0 Seconds (25.1-36.5) 09/25/17 10:40 - Constitutional Appears: No Acute Distress - Eye Exam Additional comments: 5 mm non-reactive to light accommodation. - Neurological Exam Neuro motor strength exam: Left Upper Extremity: 0, Right Upper Extremity: 0, Left Lower Extremity: 0, Right Lower Extremity: 0 Additional comments: GCS 3T Assessment and Plan (1) CVA (cerebral vascular accident) Assessment & Plan: Case discussed with Dr. Silva, continue all current medical regimen. Recommend conservative management. Status: Acute
[2017-09-28 07:38] LABS: GRAN # 7.71 (1.4-6.5); GRAN % 86.8 % (50.0-68.0); HEMOGLOBIN 12.9 g/dL (12.0-16.0); LYMPH # 0.9 (1.2-3.4); MEAN CORPUSCULAR HEMOGLOBIN 32.2 pg (25.0-35.0); MEAN CORPUSCULAR HGB CONC 32.2 g/dl (31.0-37.0); MEAN PLATELET VOLUME 10.1 fl (7.0-11.0); MONO # 0.3 (0.1-0.6); MONO % 3.2 % (1.0-6.0); RBC 4.01 10^6/uL (3.5-6.1); RED CELL DISTRIBUTION WIDTH 13.4 % (11.5-14.5); WHITE BLOOD COUNT 8.9 10^3/ul (4.5-11.0)
--- NOTE | 2017-09-28 08:04 | HP ---
CRITICAL CARE UNIT EVALUATION HISTORY OF PRESENT ILLNESS: This 71-year-old female was examined in ICU bed 7. She presented earlier today to the [facility] ER after her was unable to wake the patient from a sleep last evening. She was brought to the emergency room via 911 EMS support and found to have an acute on chronic stroke involving her left upper and lower extremities. The patient was emergently intubated in the emergency room because of altered mental status and is now being treated with parenteral antibiotics to cover for possible aspiration pneumonia. PAST MEDICAL HISTORY: Significant for previous stroke, chronic atrial fibrillation on no oral anticoagulation and history of chronic hypertension. According to the patient's EMR, she is postmenopausal, has chronic hypertension, chronic atrial fibrillation, history of chronic left-sided weakness, history of GERD, history of low vitamin D levels, hyperlipidemia, hypertension. OUTPATIENT MEDICATIONS: Included Ecotrin, Plavix, digoxin, vitamin D, Imdur, Zocor and Lopressor. ALLERGIES: THE PATIENT REPORTEDLY HAS NO KNOWN ALLERGIES TO MEDICATION. SOCIAL HISTORY: Nondrinker, nonsmoker, nonIV drug misuser. 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 FAMILY HISTORY: Noncontributory. REVIEW OF SYSTEMS: CONSTITUTIONAL: There is no report of fever or chills. HEAD: No seizure, but history of old stroke according to family. EYES: No change in visual acuity. EARS: No hearing loss. THROAT: No swallowing difficulty. NECK: No stiffness. CARDIAC: As per HPI. PULMONARY: No hemoptysis. GI: Chronic GERD. : No reports of renal failure. VASCULAR: No claudication. PSYCHOLOGICAL: No depression. NEUROLOGICAL: As per HPI. ENDOCRINE: No knowledge of diabetes but chronic hyperlipidemia. DIAGNOSTICS: CAT scan from the emergency room was reviewed and shows a large acute on subacute right middle cerebral artery and anterior cerebral artery territory infarct involving her frontal parietal and medial temporal lobes on the right with mild mass effect on the right lateral ventricle and a modest midline shift from right to left with no evidence of hemorrhagic transformation. The patient was also noted to have cystic encephalomalacia in her right occipital and posterior temporal lobes, the sequela from old posterior cerebral artery and middle cerebral artery infarct in the past. These findings were reviewed with emergency room physician, Dr. James Yoon, as well as Dr. Cody Silva, neurologist. PHYSICAL EXAMINATION: GENERAL: The patient is intubated, sedated. VITAL SIGNS: Temperature of 98.4, respirations 16, pulse 108 and blood pressure 136/104 with a pulse ox of 100%. HEENT : Head normocephalic, atraumatic. Eyes, no icterus. Ears, clear. Throat intubated. NECK: Supple. HEART: Irregular S1, S2. LUNGS: With occasional rhonchi bilaterally. ABDOMEN: Soft. EXTREMITIES: No edema. SKIN: Without rash. NEUROLOGICAL: Sedated. VASCULAR: Legs warm to touch. LABORATORY DATA: Sodium 142, K 4.2, chloride 102, bicarb 30, BUN 24, creatinine 0.8, random blood sugar 152. Magnesium 2.3. Bilirubin 0.7, AST 37, ALT 27, alk phos 85. CPK normal 102. Troponin less than 0.01. White count 8000, hemoglobin 13.5, hematocrit 41.7, platelets 119,000. PT/INR 1.05, PTT 33.0. Urinalysis showed trace bacteria, 0 to 2 white blood cells. Chest x-ray was reviewed showed endotracheal tubing in place with severe cardiomegaly, moderate pulmonary venous congestion and air space disease in her right lower lobe, possibly consistent with aspiration pneumonia. EKG reportedly showed atrial fibrillation with nonspecific ST-T wave changes. IMPRESSION: A 71-year-old female with longstanding history of hyperlipidemia, hypertension, old stroke, now acute stroke in the setting of comorbidities as listed above on no anticoagulation as an outpatient and now with possible aspiration pneumonia, congestive heart failure, respiratory failure requiring intubation and evidence of CT of the head findings consistent with an anterior cerebral artery and middle cerebral artery infarct of her brain involving her right frontal parietal and medial temporal lobes with evidence of mass effect on her right lateral ventricle, but no evidence of hemorrhagic transformation, also with 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 PLAN: All of the above was discussed in detail with Dr. Cody Silva from neurology. This case was also reviewed in detail with Tj Martinez MD pre sales technical consultant. The patient will be maintained in ICU bed 7. She is intubated and will be given regular medium dose insulin coverage before meals and at bedtime while being treated with 3% hypertonic saline at 50 mL/hour under the watchful eye of neurology. She also continues on Protonix 40 mg IV daily for GI prophylaxis. She has an order for Tylenol 650 mg rectally q.6 hours p.r.n. temperature greater than 101. She has been started empirically on vancomycin 1 gm IV q. 12 and Zosyn 3.375 gm IV q. 6 for presumptive aspiration pneumonia and she is being ordered to have Cabezas catheter for Is and Os and sequential compression device, antiembolism stockings. She is ordered to have bedside physical therapy for range of motion. She has had a central line placed in her right internal jugular vein for venous access. Blood and urine cultures have been received. She will have a stat BNP level, basic metabolic panel as well as CBC repeated in the a.m. I have placed a consultation with Dr. Luis Eduardo Guerrero from cardiology for management of her atrial fibrillation, stroke and scheduling of bubble echocardiography when medically stable. All of the above was reviewed in detail with co-consultants and nursing. Greater than 75 minutes was spent in the care, review of x-rays, labs, medication, scans and ordering of care and medication for this patient today. All questions were answered. Hortencia Manriquez MD [facility]
--- NOTE | 2017-09-28 08:11 | PN ---
DATE: 09/27/2017 CRITICAL CARE PROGRESS NOTE SUBJECTIVE: This 71-year-old female remains in ICU bed 7. She remains intubated, unresponsive in the setting of an acute large right-sided CVA in the middle and anterior cerebral artery territories with left-sided weakness, unresponsiveness and respiratory failure, requiring ventilatory support. The patient is being followed by Intensive Care physician, Cardiology, Neurology and Neurosurgery. PHYSICAL EXAMINATION: VITAL SIGNS: Temperature was 98.7 earlier, respirations 21, pulse 97, blood pressure 106/48. Pulse ox 97%. HEENT: Head: Normocephalic, atraumatic. Eyes no icterus. Ears clear. Throat: Noninjected. NECK: Supple. HEART: Irregular S1, S2. LUNGS: Occasional rhonchi. ABDOMEN: Soft. EXTREMITIES: No edema. SKIN: Without rash. NEUROLOGICAL: Sedated. VASCULAR: Legs warm to touch. LABORATORY DATA: White count 7800, hemoglobin 12.8, hematocrit 40.2, platelets 86,000. PT/INR 1.05, PTT 33.0. Sodium 163, K 3.4, chloride 130, bicarb 24, BUN 25, creatinine 0.8, random blood sugar 121. Urine, blood and MRSA screen negative. Head CT performed earlier today shows encephalomalacia throughout the right middle cerebral artery and anterior cerebral artery distributions with midline shift to the left measuring approximately 1.5 cm with evidence of subfalcine herniation. All of the above has been reviewed with Dr. Tj Martinez, Router Tender, Dr. Bubba Gomez, Neuro Surgeon and Dr. Cody Silva, Neurology and Dr. Luis Eduardo Guerrero from Cardiology. PLAN: The plan at present is to maintain the patient in ICU on ventilatory support. She has been ordered to have blood and urine cultures, 3% saline has been withheld. She continues on sedation. She is ordered to have an echo bubble test that was discussed with Dr. Guerrero. She will continue on insulin coverage. GI prophylaxis, DVT prevention and is not deemed a surgical candidate, is not deemed a neurosurgery candidate and has extremely poor prognosis. Given all of the above, she will be ordered to have repeat comprehensive metabolic panel and CBC in a.m. She continues on a nicardipine drip for blood pressure control. She is ordered to have Tylenol p.r.n. any future fevers and will have serial chest x-rays regarding endotracheal tube positioning. Greater than 35 minutes was spent in the care management, review of x-rays, labs, medication and discussion of this patient today. Overall prognosis is extremely poor. Intensive Care team will be talking to family regarding code status. She will be treated in a aggressive manner, pending their decision. Hortencia Manriquez MD MTDD
[2017-09-28 08:16] LABS: ALB/GLOB RATIO 0.9 (1.1-1.8); ALBUMIN 3.1 g/dL (3.0-4.8); ALT/SGPT 19 U/L (7-56); AST/SGOT 51 U/L (14-36); BLOOD UREA NITROGEN 29 mg/dL (7-21); CALCIUM 8.6 mg/dL (8.4-10.5); GFR AFRICAN-AMERICAN > 60; GFR NON-AFRICAN AMERICAN > 60
[2017-09-28] MEDS: Insulin Reg-MEDIUM-Coverage SC SCH ×4 (08:21→22:00)
--- NOTE | 2017-09-28 09:29 | CP.PCM.CON ---
History of Present Illness - History of Present Illness History of Present Illness: Palliative consult requested by Dr. Aldana copied to Dr Manriquez Reason Goals of care 71 year old female with history of A Fib, CVA with Left sided weakness who presented with altered mental status and left hemipilegia. She was intubated upon arrival to ED. CT of head showed a large right MCA ischemic stroke with left midline shift. Patient has been seen by neurosurgery and is not a candidate for craniotomy PMHx: A Fib not on anticoagulation therapy, previous CVA with left sided weakness, HTN,GERD,HLD. Family History: Never smoked, no alcohol or drug use. , lives with spouse. Family Hisoyt:Non contributory Advance Care Planning: The patient does not have an Advanced Directive Review of Systems: As per HPI, she is comatose/intubated Past Patient History - Infectious Disease Hx of Infectious Diseases: None - Past Social History Smoking Status: Never Smoked - CARDIAC Hx Atrial Fibrillation: Yes Hx Hypertension: Yes - PULMONARY Hx Respiratory Disorders: No - NEUROLOGICAL Hx Neurological Disorder: Yes HX Cerebrovascular Accident: Yes (left side weakness) - HEENT Hx HEENT Problems: No - RENAL Hx Chronic Kidney Disease: No - ENDOCRINE/METABOLIC Hx Endocrine Disorders: No - HEMATOLOGICAL/ONCOLOGICAL Hx Blood Disorders: No - INTEGUMENTARY Hx Dermatological Problems: No - MUSCULOSKELETAL/RHEUMATOLOGICAL Hx Falls: Yes - GASTROINTESTINAL Hx Gastrointestinal Disorders: Yes Hx Gastroesophageal Reflux: Yes - GENITOURINARY/GYNECOLOGICAL Hx Genitourinary Disorders: No - PSYCHIATRIC Hx Psychophysiologic Disorder: No Hx Substance Use: No - SURGICAL HISTORY Hx Surgeries: No - ANESTHESIA Hx Anesthesia: No Meds Allergies/Adverse Reactions: Allergies Allergy/AdvReac Type Severity Reaction Status Date / Time No Known Allergies Allergy Verified 09/25/17 11:35 - Medications Medications: Current Medications Acetaminophen (Tylenol 325mg Tab) 650 mg PO Q4 PRN PRN Reason: Fever >100.4 F Acetaminophen (Tylenol 650 Mg Supp) 650 mg RC Q6H PRN PRN Reason: Fever >100.4 F Last Admin: 09/27/17 16:28 Dose: 650 mg Dexamethasone (Decadron Inj) 10 mg IVP Q8H [facility] Last Admin: 09/28/17 03:06 Dose: 10 mg Digoxin (Lanoxin) 0.125 mg IVP 1400 [facility] Last Admin: 09/27/17 13:28 Dose: 0.125 mg Propofol (Diprivan) 1,000 mg in 100 mls @ 1.579 mls/hr IV .Q24H PRN; Protocol; 5 MCG/KG/MIN PRN Reason: TITRATE PER MD ORDER Last Titration: 09/27/17 18:30 Dose: 0 mcg/kg/min, 0 mls/hr Sodium Chloride (Hypertonic Saline 3%) 500 mls @ 50 mls/hr IV .Q10H [facility] Nicardipine HCl (Cardene Iv Premix) 20 mg in 200 mls @ 50 mls/hr IV .Q4H PRN; Protocol; 5 MG/HR PRN Reason: TITRATE PER MD ORDER Last Admin: 09/28/17 07:08 Dose: 2 mg/hr, 20 mls/hr Lactated Ringer's (Lactated Ringer's) 1,000 mls @ 75 mls/hr IV .[id number] [facility] Last Admin: 09/28/17 03:14 Dose: 75 mls/hr Potassium Chloride (Potassium Chloride 10 Meq/100 Ml) 10 meq in 100 mls @ 50 mls/hr IVPB ONCE ONE Stop: 09/28/17 10:44 Potassium Chloride (Potassium Chloride 10 Meq/100 Ml) 10 meq in 100 mls @ 50 mls/hr IVPB ONCE ONE Stop: 09/28/17 10:45 Insulin Human Regular (Humulin R Med) 0 units SC ACHS [facility] PRN Reason: Protocol Last Admin: 09/28/17 08:21 Dose: Not Given Labetalol HCl (Trandate) 5 mg IV Q4H PRN PRN Reason: Systolic Blood Pressure Ondansetron HCl (Zofran Inj) 4 mg IVP Q6H PRN PRN Reason: Nausea/Vomiting Pantoprazole Sodium (Protonix Inj) 40 mg IVP DAILY [facility] Last Admin: 09/27/17 09:58 Dose: 40 mg Physical Exam - Constitutional Appears: Chronically Ill - Head Exam Additional comments: right sided asymmetry - Eye Exam Pupil Exam: Fixed - ENT Exam ENT Exam: Mucous Membranes Moist - Neck Exam Neck exam: Positive for: Normal Inspection - Respiratory Exam Respiratory Exam: Decreased Breath Sounds - Cardiovascular Exam Cardiovascular Exam: Irregular Rhythm, +S1, +S2 - GI/Abdominal Exam GI & Abdominal Exam: Normal Bowel Sounds, Soft - Extremities Exam Additional comments: left sided paralysis, right arm and leg respond to painful stimuli - Skin Skin Exam: Dry, Warm - Additional Findings Additional findings: Palliative performance scale rating 10% Results - Vital Signs Recent Vital Signs: Last Vital Signs Temp 99.5 F 09/28/17 04:00 Pulse 78 09/28/17 06:15 Resp 21 09/28/17 06:15 BP 114/50 L 09/28/17 06:15 Pulse Ox 98 09/28/17 06:15 - Labs Result Diagrams: 09/28/17 07:30 09/28/17 07:30 Labs: Laboratory Results - last 24 hr 09/26/17 09/27/17 09/27/17 18:35 00:10 05:00 WBC RBC Hgb Hct MCV MCH MCHC RDW Plt Count MPV Gran % Lymph % (Auto) [place] % (Auto) Eos % (Auto) Baso % (Auto) Gran # Lymph # [place] # Eos # Baso # Sodium Potassium Chloride Carbon Dioxide Anion Gap BUN Creatinine Est GFR ( Amer) Est GFR (Non-Af Amer) POC Glucose (mg/dL) Random Glucose Serum Osmolality 327 H 329 H 331 H Calcium Total Bilirubin AST ALT Alkaline Phosphatase Total Protein Albumin Globulin Albumin/Globulin Ratio 09/27/17 09/27/17 09/27/17 11:00 11:00 11:04 WBC RBC Hgb Hct MCV MCH MCHC RDW Plt Count MPV Gran % Lymph % (Auto) [place] % (Auto) Eos % (Auto) Baso % (Auto) Gran # Lymph # [place] # Eos # Baso # Sodium 163 H* Potassium 3.4 L Chloride 130 H Carbon Dioxide 24 Anion Gap 13 BUN 25 H Creatinine 0.8 Est GFR ( Amer) > 60 Est GFR (Non-Af Amer) > 60 POC Glucose (mg/dL) 121 H Random Glucose 185 H Serum Osmolality 337 H Calcium 8.6 Total Bilirubin AST ALT Alkaline Phosphatase Total Protein Albumin Globulin Albumin/Globulin Ratio 09/27/17 09/27/17 09/27/17 16:04 18:40 22:31 WBC RBC Hgb Hct MCV MCH MCHC RDW Plt Count MPV Gran % Lymph % (Auto) [place] % (Auto) Eos % (Auto) Baso % (Auto) Gran # Lymph # [place] # Eos # Baso # Sodium 162 H* Potassium 3.3 L Chloride 129 H Carbon Dioxide 24 Anion Gap 13 BUN 27 H Creatinine 0.9 Est GFR ( Amer) > 60 Est GFR (Non-Af Amer) > 60 POC Glucose (mg/dL) 153 H 154 H Random Glucose 177 H Serum Osmolality Calcium 8.6 Total Bilirubin AST ALT Alkaline Phosphatase Total Protein Albumin Globulin Albumin/Globulin Ratio 09/28/17 09/28/17 07:30 07:30 WBC 8.9 RBC 4.01 Hgb 12.9 Hct 40.1 MCV 100.0 MCH 32.2 MCHC 32.2 RDW 13.4 Plt Count 106 L MPV 10.1 Gran % 86.8 H Lymph % (Auto) 10.0 L [place] % (Auto) 3.2 Eos % (Auto) 0.0 L Baso % (Auto) 0.0 Gran # 7.71 H Lymph # 0.9 L [place] # 0.3 Eos # 0.0 Baso # 0.00 Sodium 158 H* Potassium 3.3 L Chloride 128 H Carbon Dioxide 24 Anion Gap 9 L BUN 29 H Creatinine 0.9 Est GFR ( Amer) > 60 Est GFR (Non-Af Amer) > 60 POC Glucose (mg/dL) Random Glucose 179 H Serum Osmolality Calcium 8.6 Total Bilirubin 1.0 AST 51 H D ALT 19 Alkaline Phosphatase 57 Total Protein 6.7 Albumin 3.1 Globulin 3.5 Albumin/Globulin Ratio 0.9 L Assessment & Plan - Assessment and Plan (Free Text) Assessment: 71 year old female with hsoty of A Fib, CVA, HTN who is admitted with large right MCA with midline shift. Recent CT (09/27) shows diffuse hypodense encephalomalacia through out MCS and IRMA. 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 Midline shift to left measuring 1.5cm, evidence of subfalcine herniation. Not a candidate for neurosurgery. GCS 6.Right side reactive to painful stimuli. Patients daughter and at bedside. Daughter speaks Turkmen. Family aware of the extent of patients brain injury as we'll as grave prognosis. Options for PEG/Trach/LTAC vs terminal extubatin explained. Questions answered. Family understands the burden of Trach/PEG but requesting this be done. Family has agreed to make patient a DNR as they do not want heroic resuscitative measures if patients heart stops. Psychosocial support given. AUTUMN T Leland also present during this conversation. List of LTAC's given to family. Time spent with family in goals of care and p advance care planning discussion, 30 minutes Plan: DNR Palliative support in establishing goals of care
--- NOTE | 2017-09-28 09:49 | CP.CCUPN ---
<Luis Bell - Last Filed: 09/28/17 10:46> CCU Subjective - Physician Review Subjective (Free Text): Critical Care- Dr. Martinez Patient seen and examined at bedside this AM. Patient remains intubated PRVC ( 50 5 16 350), off propfol. pupils dilated and fixed. Repeat CT of the head showed midline shift to the left measuring 1.5 cm. Evidence of subfalcine herniation. Unable to obtain full ROS due to mentation. Vital signs stable at this time. CCU Objective - Vital Signs / Intake & Output Vital Signs (Last 4 hours): Vital Signs Pulse Resp BP Pulse Ox 09/28/17 06:15 78 21 114/50 L 98 09/28/17 06:00 72 22 114/61 97 Intake and Output (Last 8hrs): Intake & Output 09/27/17 09/28/17 09/28/17 22:59 06:59 14:59 Intake Total 915 1365 Output Total 300 350 Balance 615 1015 Intake: IV 915 1365 Left Antecubital 0 Right Internal Jugular 695 1165 Output: Urine 300 350 Urethral ([place]) 300 350 Other: # Bowel Movements 0 - Physical Exam Physical Exam Limitations: Positive for: Other (intubated- nonverbal off sedation) Head: Positive for: Normocephalic, Ecchymosis (around mouth) Mouth: Positive for: Drooling Neck: Positive for: Other (R. IJ central line in place) Respiratory/Chest: Positive for: Decreased Breath Sounds (b/l) Cardiovascular: Positive for: Irregular Rhythm, Other (systolic murmur) Abdomen: Positive for: Normal Bowel Sounds. Negative for: Tenderness, Distention, Peritoneal Signs Upper Extremity: Positive for: Swelling Lower Extremity: Positive for: Normal Inspection. Negative for: Edema Neurological: Positive for: Other (0/5 muscle strength U and LE b/l). Negative for: GCS=15, CN II-XII Intact (CN 9- gag reflex intact) Psychiatric: Positive for: Other - Medications Active Medications: Active Medications Generic Name Dose Route Start Last Admin Trade Name Freq PRN Reason Stop Dose Admin Acetaminophen 650 mg 09/25/17 10:28 Tylenol 325mg Tab PO Q4 PRN Fever >100.4 F Acetaminophen 650 mg 09/25/17 15:26 09/27/17 16:28 Tylenol 650 Mg Supp RC 650 mg Q6H PRN Administration Fever >100.4 F Dexamethasone 10 mg 09/27/17 10:30 09/28/17 03:06 Decadron Inj IVP 10 mg Q8H [facility] Administration Digoxin 0.125 mg 09/26/17 14:00 09/27/17 13:28 Lanoxin IVP 0.125 mg 1400 [facility]AN Administration Propofol 1,000 mg in 100 mls @ 1.579 mls/hr 09/26/17 10:19 09/27/17 18:30 Diprivan IV 0 mcg/kg/min .Q24H PRN 0 mls/hr TITRATE PER MD ORDER Titration Protocol 5 MCG/KG/MIN Sodium Chloride 500 mls @ 50 mls/hr 09/26/17 16:51 Hypertonic Saline 3% IV .Q10H [facility] Nicardipine HCl 20 mg in 200 mls @ 50 mls/hr 09/27/17 10:19 09/28/17 07:08 Cardene Iv Premix IV 2 mg/hr .Q4H PRN 20 mls/hr TITRATE PER MD ORDER Administration Protocol 5 MG/HR Lactated Ringer's 1,000 mls @ 75 mls/hr 09/27/17 14:00 09/28/17 03:14 Lactated Ringer's IV 75 mls/hr .[id number] [facility] Administration Potassium Chloride 10 meq in 100 mls @ 50 mls/hr 09/28/17 08:45 Potassium Chloride 10 Meq/100 Ml IVPB 09/28/17 10:44 ONCE ONE Potassium Chloride 10 meq in 100 mls @ 50 mls/hr 09/28/17 08:46 Potassium Chloride 10 Meq/100 Ml IVPB 09/28/17 10:45 ONCE ONE Insulin Human Regular 0 units 09/25/17 11:30 09/28/17 08:21 Humulin R Med SC Not Given ACHS [facility] Protocol Labetalol HCl 5 mg 09/26/17 22:18 Trandate IV Q4H PRN Systolic Blood Pressure Ondansetron HCl 4 mg 09/25/17 15:26 Zofran Inj IVP Q6H PRN Nausea/Vomiting Pantoprazole Sodium 40 mg 09/25/17 15:30 09/27/17 09:58 Protonix Inj IVP 40 mg DAILY [facility] Administration - Patient Studies Lab Studies: Lab Studies 09/28/17 09/28/17 09/27/17 Range/Units 07:30 07:30 22:31 WBC 8.9 (4.5-11.0) 10^3/ul RBC 4.01 (3.5-6.1) 10^6/uL Hgb 12.9 (12.0-16.0) g/dL Hct 40.1 (36.0-48.0) % MCV 100.0 (80.0-105.0) fl MCH 32.2 (25.0-35.0) pg MCHC 32.2 (31.0-37.0) g/dl RDW 13.4 (11.5-14.5) % Plt Count 106 L (120.0-450.0) 10^3/uL MPV 10.1 (7.0-11.0) fl Gran % 86.8 H (50.0-68.0) % Lymph % (Auto) 10.0 L (22.0-35.0) % [place] % (Auto) 3.2 (1.0-6.0) % Eos % (Auto) 0.0 L (1.5-5.0) % Baso % (Auto) 0.0 (0.0-3.0) % Gran # 7.71 H (1.4-6.5) Lymph # 0.9 L (1.2-3.4) [place] # 0.3 (0.1-0.6) Eos # 0.0 (0.0-0.7) Baso # 0.00 (0.0-2.0) K/mm3 Sodium 158 H* (132-148) mmol/L Potassium 3.3 L (3.6-5.0) mmol/L Chloride 128 H (98-107) mmol/L Carbon Dioxide 24 (21-33) mmol/L Anion Gap 9 L (10-20) BUN 29 H (7-21) mg/dL Creatinine 0.9 (0.7-1.2) mg/dl Est GFR ( Amer) > 60 Est GFR (Non-Af Amer) > 60 POC Glucose (mg/dL) 154 H (65-110) mg/dL Random Glucose 179 H (70-110) mg/dL Serum Osmolality (272-300) mosm/kg Calcium 8.6 (8.4-10.5) mg/dL Total Bilirubin 1.0 (0.2-1.3) mg/dL AST 51 H D (14-36) U/L ALT 19 (7-56) U/L Alkaline Phosphatase 57 (38-126) U/L Total Protein 6.7 (5.8-8.3) g/dL Albumin 3.1 (3.0-4.8) g/dL Globulin 3.5 gm/dL Albumin/Globulin Ratio 0.9 L (1.1-1.8) 09/27/17 09/27/17 09/27/17 Range/Units 18:40 16:04 11:04 WBC (4.5-11.0) 10^3/ul RBC (3.5-6.1) 10^6/uL Hgb (12.0-16.0) g/dL Hct (36.0-48.0) % MCV (80.0-105.0) fl MCH (25.0-35.0) pg MCHC (31.0-37.0) g/dl RDW (11.5-14.5) % Plt Count (120.0-450.0) 10^3/uL MPV (7.0-11.0) fl Gran % (50.0-68.0) % Lymph % (Auto) (22.0-35.0) % [place] % (Auto) (1.0-6.0) % Eos % (Auto) (1.5-5.0) % Baso % (Auto) (0.0-3.0) % Gran # (1.4-6.5) Lymph # (1.2-3.4) [place] # (0.1-0.6) Eos # (0.0-0.7) Baso # (0.0-2.0) K/mm3 Sodium 162 H* (132-148) mmol/L Potassium 3.3 L (3.6-5.0) mmol/L Chloride 129 H (98-107) mmol/L Carbon Dioxide 24 (21-33) mmol/L Anion Gap 13 (10-20) BUN 27 H (7-21) mg/dL Creatinine 0.9 (0.7-1.2) mg/dl Est GFR ( Amer) > 60 Est GFR (Non-Af Amer) > 60 POC Glucose (mg/dL) 153 H 121 H (65-110) mg/dL Random Glucose 177 H (70-110) mg/dL Serum Osmolality (272-300) mosm/kg Calcium 8.6 (8.4-10.5) mg/dL Total Bilirubin (0.2-1.3) mg/dL AST (14-36) U/L ALT (7-56) U/L Alkaline Phosphatase (38-126) U/L Total Protein (5.8-8.3) g/dL Albumin (3.0-4.8) g/dL Globulin gm/dL Albumin/Globulin Ratio (1.1-1.8) 09/27/17 09/27/17 09/27/17 Range/Units 11:00 11:00 05:00 WBC (4.5-11.0) 10^3/ul RBC (3.5-6.1) 10^6/uL Hgb (12.0-16.0) g/dL Hct (36.0-48.0) % MCV (80.0-105.0) fl MCH (25.0-35.0) pg MCHC (31.0-37.0) g/dl RDW (11.5-14.5) % Plt Count (120.0-450.0) 10^3/uL MPV (7.0-11.0) fl Gran % (50.0-68.0) % Lymph % (Auto) (22.0-35.0) % [place] % (Auto) (1.0-6.0) % Eos % (Auto) (1.5-5.0) % Baso % (Auto) (0.0-3.0) % Gran # (1.4-6.5) Lymph # (1.2-3.4) [place] # (0.1-0.6) Eos # (0.0-0.7) Baso # (0.0-2.0) K/mm3 Sodium 163 H* (132-148) mmol/L Potassium 3.4 L (3.6-5.0) mmol/L Chloride 130 H (98-107) mmol/L Carbon Dioxide 24 (21-33) mmol/L Anion Gap 13 (10-20) BUN 25 H (7-21) mg/dL Creatinine 0.8 (0.7-1.2) mg/dl Est GFR ( Amer) > 60 Est GFR (Non-Af Amer) > 60 POC Glucose (mg/dL) (65-110) mg/dL Random Glucose 185 H (70-110) mg/dL Serum Osmolality 337 H 331 H (272-300) mosm/kg Calcium 8.6 (8.4-10.5) mg/dL Total Bilirubin (0.2-1.3) mg/dL AST (14-36) U/L ALT (7-56) U/L Alkaline Phosphatase (38-126) U/L Total Protein (5.8-8.3) g/dL Albumin (3.0-4.8) g/dL Globulin gm/dL Albumin/Globulin Ratio (1.1-1.8) 09/27/17 09/26/17 Range/Units 00:10 18:35 WBC (4.5-11.0) 10^3/ul RBC (3.5-6.1) 10^6/uL Hgb (12.0-16.0) g/dL Hct (36.0-48.0) % MCV (80.0-105.0) fl MCH (25.0-35.0) pg MCHC (31.0-37.0) g/dl RDW (11.5-14.5) % Plt Count (120.0-450.0) 10^3/uL MPV (7.0-11.0) fl Gran % (50.0-68.0) % Lymph % (Auto) (22.0-35.0) % [place] % (Auto) (1.0-6.0) % Eos % (Auto) (1.5-5.0) % Baso % (Auto) (0.0-3.0) % Gran # (1.4-6.5) Lymph # (1.2-3.4) [place] # (0.1-0.6) Eos # (0.0-0.7) Baso # (0.0-2.0) K/mm3 Sodium (132-148) mmol/L Potassium (3.6-5.0) mmol/L Chloride (98-107) mmol/L Carbon Dioxide (21-33) mmol/L Anion Gap (10-20) BUN (7-21) mg/dL Creatinine (0.7-1.2) mg/dl Est GFR ( Amer) Est GFR (Non-Af Amer) POC Glucose (mg/dL) (65-110) mg/dL Random Glucose (70-110) mg/dL Serum Osmolality 329 H 327 H (272-300) mosm/kg Calcium (8.4-10.5) mg/dL Total Bilirubin (0.2-1.3) mg/dL AST (14-36) U/L ALT (7-56) U/L Alkaline Phosphatase (38-126) U/L Total Protein (5.8-8.3) g/dL Albumin (3.0-4.8) g/dL Globulin gm/dL Albumin/Globulin Ratio (1.1-1.8) Laboratory Results - last 24 hr 09/26/17 09/27/17 09/27/17 18:35 00:10 05:00 WBC RBC Hgb Hct MCV MCH MCHC RDW Plt Count MPV Gran % Lymph % (Auto) [place] % (Auto) Eos % (Auto) Baso % (Auto) Gran # Lymph # [place] # Eos # Baso # Sodium Potassium Chloride Carbon Dioxide Anion Gap BUN Creatinine Est GFR ( Amer) Est GFR (Non-Af Amer) POC Glucose (mg/dL) Random Glucose Serum Osmolality 327 H 329 H 331 H Calcium Total Bilirubin AST ALT Alkaline Phosphatase Total Protein Albumin Globulin Albumin/Globulin Ratio 09/27/17 09/27/17 09/27/17 11:00 11:00 11:04 WBC RBC Hgb Hct MCV MCH MCHC RDW Plt Count MPV Gran % Lymph % (Auto) [place] % (Auto) Eos % (Auto) Baso % (Auto) Gran # Lymph # [place] # Eos # Baso # Sodium 163 H* Potassium 3.4 L Chloride 130 H Carbon Dioxide 24 Anion Gap 13 BUN 25 H Creatinine 0.8 Est GFR ( Amer) > 60 Est GFR (Non-Af Amer) > 60 POC Glucose (mg/dL) 121 H Random Glucose 185 H Serum Osmolality 337 H Calcium 8.6 Total Bilirubin AST ALT Alkaline Phosphatase Total Protein Albumin Globulin Albumin/Globulin Ratio 09/27/17 09/27/17 09/27/17 16:04 18:40 22:31 WBC RBC Hgb Hct MCV MCH MCHC RDW Plt Count MPV Gran % Lymph % (Auto) [place] % (Auto) Eos % (Auto) Baso % (Auto) Gran # Lymph # [place] # Eos # Baso # Sodium 162 H* Potassium 3.3 L Chloride 129 H Carbon Dioxide 24 Anion Gap 13 BUN 27 H Creatinine 0.9 Est GFR ( Amer) > 60 Est GFR (Non-Af Amer) > 60 POC Glucose (mg/dL) 153 H 154 H Random Glucose 177 H Serum Osmolality Calcium 8.6 Total Bilirubin AST ALT Alkaline Phosphatase Total Protein Albumin Globulin Albumin/Globulin Ratio 09/28/17 09/28/17 07:30 07:30 WBC 8.9 RBC 4.01 Hgb 12.9 Hct 40.1 MCV 100.0 MCH 32.2 MCHC 32.2 RDW 13.4 Plt Count 106 L MPV 10.1 Gran % 86.8 H Lymph % (Auto) 10.0 L [place] % (Auto) 3.2 Eos % (Auto) 0.0 L Baso % (Auto) 0.0 Gran # 7.71 H Lymph # 0.9 L [place] # 0.3 Eos # 0.0 Baso # 0.00 Sodium 158 H* Potassium 3.3 L Chloride 128 H Carbon Dioxide 24 Anion Gap 9 L BUN 29 H Creatinine 0.9 Est GFR ( Amer) > 60 Est GFR (Non-Af Amer) > 60 POC Glucose (mg/dL) Random Glucose 179 H Serum Osmolality Calcium 8.6 Total Bilirubin 1.0 AST 51 H D ALT 19 Alkaline Phosphatase 57 Total Protein 6.7 Albumin 3.1 Globulin 3.5 Albumin/Globulin Ratio 0.9 L Fingerstick Blood Sugar Results: 157 Assessment/Plan - Assessment and Plan (Free Text) Assessment: 71F 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 Off sedation. Hypernatermia, trending down- off 3% saline. Currently hemodynamically stable, afebrile. Plan: Neuro: Intubated- unresponsive; pupils dilated and fixed off propfol sedation for now R. CVA with 1.5cm midline shift and evidence of subfalcine hernation- off 3% Saline Neurochecks c/s Neurosurgery c/s Neurology- recommend conservative management at this time Cardio: continue to monitor vitals MAP > 65 Echo w/ bubble study Pulm: Intubated- on PRVC keep Sa)2 above 92% GI: GI ppx will consider placing dobhoff for feeding Renal/Electrolytes: Trend Sodium off 3% saline replace electrolytes PRN argueta in place- Monitor I/O Endo: Keep pt euglycemic, euvolemic Heme: will monitor Hgb daily DVT ppx Pt prognosis poor c/s palliative care- will discuss w/ family about plan of care discussed with Dr. Martinez critical care attending Luis Bell PGY1 <Tj Martinez - Last Filed: 09/28/17 11:04> CCU Objective - Vital Signs / Intake & Output Vital Signs (Last 4 hours): Vital Signs Temp 09/28/17 10:27 100.8 F H Intake and Output (Last 8hrs): Intake & Output 09/27/17 09/28/17 09/28/17 22:59 06:59 14:59 Intake Total 915 1365 Output Total 300 350 Balance 615 1015 Intake: IV 915 1365 Left Antecubital 0 Right Internal Jugular 695 1165 Output: Urine 300 350 Urethral ([place]) 300 350 Other: # Bowel Movements 0 - Medications Active Medications: Active Medications Generic Name Dose Route Start Last Admin Trade Name Freq PRN Reason Stop Dose Admin Acetaminophen 650 mg 09/25/17 10:28 Tylenol 325mg Tab PO Q4 PRN Fever >100.4 F Acetaminophen 650 mg 09/25/17 15:26 09/28/17 10:27 Tylenol 650 Mg Supp RC 650 mg Q6H PRN Administration Fever >100.4 F Dexamethasone 10 mg 09/27/17 10:30 09/28/17 10:25 Decadron Inj IVP 10 mg Q8H [facility] Administration Digoxin 0.125 mg 09/26/17 14:00 09/27/17 13:28 Lanoxin IVP 0.125 mg 1400 [facility]AN Administration Propofol 1,000 mg in 100 mls @ 1.579 mls/hr 09/26/17 10:19 01/21/18 18:30 Diprivan IV 0 mcg/kg/min .Q24H PRN 0 mls/hr TITRATE PER MD ORDER Titration Protocol 5 MCG/KG/MIN Sodium Chloride 500 mls @ 50 mls/hr 09/26/17 16:51 Hypertonic Saline 3% IV .Q10H [facility] Nicardipine HCl 20 mg in 200 mls @ 50 mls/hr 09/27/17 10:19 09/28/17 07:08 Cardene Iv Premix IV 2 mg/hr .Q4H PRN 20 mls/hr TITRATE PER MD ORDER Administration Protocol 5 MG/HR Lactated Ringer's 1,000 mls @ 75 mls/hr 09/27/17 14:00 09/28/17 03:14 Lactated Ringer's IV 75 mls/hr .[id number] [facility] Administration Insulin Human Regular 0 units 09/25/17 11:30 09/28/17 08:21 Humulin R Med SC Not Given ACHS [facility] Protocol Labetalol HCl 5 mg 09/26/17 22:18 Trandate IV Q4H PRN Systolic Blood Pressure Ondansetron HCl 4 mg 09/25/17 15:26 Zofran Inj IVP Q6H PRN Nausea/Vomiting Pantoprazole Sodium 40 mg 09/25/17 15:30 09/28/17 10:18 Protonix Inj IVP 40 mg DAILY [facility] Administration - Patient Studies Lab Studies: Lab Studies 09/28/17 09/28/17 09/28/17 Range/Units 07:30 07:30 07:30 WBC 8.9 (4.5-11.0) 10^3/ul RBC 4.01 (3.5-6.1) 10^6/uL Hgb 12.9 (12.0-16.0) g/dL Hct 40.1 (36.0-48.0) % MCV 100.0 (80.0-105.0) fl MCH 32.2 (25.0-35.0) pg MCHC 32.2 (31.0-37.0) g/dl RDW 13.4 (11.5-14.5) % Plt Count 106 L (120.0-450.0) 10^3/uL MPV 10.1 (7.0-11.0) fl Gran % 86.8 H (50.0-68.0) % Lymph % (Auto) 10.0 L (22.0-35.0) % [place] % (Auto) 3.2 (1.0-6.0) % Eos % (Auto) 0.0 L (1.5-5.0) % Baso % (Auto) 0.0 (0.0-3.0) % Gran # 7.71 H (1.4-6.5) Lymph # 0.9 L (1.2-3.4) [place] # 0.3 (0.1-0.6) Eos # 0.0 (0.0-0.7) Baso # 0.00 (0.0-2.0) K/mm3 Sodium 158 H* (132-148) mmol/L Potassium 3.3 L (3.6-5.0) mmol/L Chloride 128 H (98-107) mmol/L Carbon Dioxide 24 (21-33) mmol/L Anion Gap 9 L (10-20) BUN 29 H (7-21) mg/dL Creatinine 0.9 (0.7-1.2) mg/dl Est GFR ( Amer) > 60 Est GFR (Non-Af Amer) > 60 POC Glucose (mg/dL) (65-110) mg/dL Random Glucose 179 H (70-110) mg/dL Serum Osmolality 338 H (272-300) mosm/kg Calcium 8.6 (8.4-10.5) mg/dL Total Bilirubin 1.0 (0.2-1.3) mg/dL AST 51 H D (14-36) U/L ALT 19 (7-56) U/L Alkaline Phosphatase 57 (38-126) U/L Total Protein 6.7 (5.8-8.3) g/dL Albumin 3.1 (3.0-4.8) g/dL Globulin 3.5 gm/dL Albumin/Globulin Ratio 0.9 L (1.1-1.8) 09/27/17 09/27/17 09/27/17 Range/Units 22:31 18:40 16:04 WBC (4.5-11.0) 10^3/ul RBC (3.5-6.1) 10^6/uL Hgb (12.0-16.0) g/dL Hct (36.0-48.0) % MCV (80.0-105.0) fl MCH (25.0-35.0) pg MCHC (31.0-37.0) g/dl RDW (11.5-14.5) % Plt Count (120.0-450.0) 10^3/uL MPV (7.0-11.0) fl Gran % (50.0-68.0) % Lymph % (Auto) (22.0-35.0) % [place] % (Auto) (1.0-6.0) % Eos % (Auto) (1.5-5.0) % Baso % (Auto) (0.0-3.0) % Gran # (1.4-6.5) Lymph # (1.2-3.4) [place] # (0.1-0.6) Eos # (0.0-0.7) Baso # (0.0-2.0) K/mm3 Sodium 162 H* (132-148) mmol/L Potassium 3.3 L (3.6-5.0) mmol/L Chloride 129 H (98-107) mmol/L Carbon Dioxide 24 (21-33) mmol/L Anion Gap 13 (10-20) BUN 27 H (7-21) mg/dL Creatinine 0.9 (0.7-1.2) mg/dl Est GFR ( Amer) > 60 Est GFR (Non-Af Amer) > 60 POC Glucose (mg/dL) 154 H 153 H (65-110) mg/dL Random Glucose 177 H (70-110) mg/dL Serum Osmolality (272-300) mosm/kg Calcium 8.6 (8.4-10.5) mg/dL Total Bilirubin (0.2-1.3) mg/dL AST (14-36) U/L ALT (7-56) U/L Alkaline Phosphatase (38-126) U/L Total Protein (5.8-8.3) g/dL Albumin (3.0-4.8) g/dL Globulin gm/dL Albumin/Globulin Ratio (1.1-1.8) 09/27/17 09/27/17 09/27/17 Range/Units 11:04 11:00 11:00 WBC (4.5-11.0) 10^3/ul RBC (3.5-6.1) 10^6/uL Hgb (12.0-16.0) g/dL Hct (36.0-48.0) % MCV (80.0-105.0) fl MCH (25.0-35.0) pg MCHC (31.0-37.0) g/dl RDW (11.5-14.5) % Plt Count (120.0-450.0) 10^3/uL MPV (7.0-11.0) fl Gran % (50.0-68.0) % Lymph % (Auto) (22.0-35.0) % [place] % (Auto) (1.0-6.0) % Eos % (Auto) (1.5-5.0) % Baso % (Auto) (0.0-3.0) % Gran # (1.4-6.5) Lymph # (1.2-3.4) [place] # (0.1-0.6) Eos # (0.0-0.7) Baso # (0.0-2.0) K/mm3 Sodium 163 H* (132-148) mmol/L Potassium 3.4 L (3.6-5.0) mmol/L Chloride 130 H (98-107) mmol/L Carbon Dioxide 24 (21-33) mmol/L Anion Gap 13 (10-20) BUN 25 H (7-21) mg/dL Creatinine 0.8 (0.7-1.2) mg/dl Est GFR ( Amer) > 60 Est GFR (Non-Af Amer) > 60 POC Glucose (mg/dL) 121 H (65-110) mg/dL Random Glucose 185 H (70-110) mg/dL Serum Osmolality 337 H (272-300) mosm/kg Calcium 8.6 (8.4-10.5) mg/dL Total Bilirubin (0.2-1.3) mg/dL AST (14-36) U/L ALT (7-56) U/L Alkaline Phosphatase (38-126) U/L Total Protein (5.8-8.3) g/dL Albumin (3.0-4.8) g/dL Globulin gm/dL Albumin/Globulin Ratio (1.1-1.8) 09/27/17 09/27/17 09/26/17 Range/Units 05:00 00:10 18:35 WBC (4.5-11.0) 10^3/ul RBC (3.5-6.1) 10^6/uL Hgb (12.0-16.0) g/dL Hct (36.0-48.0) % MCV (80.0-105.0) fl MCH (25.0-35.0) pg MCHC (31.0-37.0) g/dl RDW (11.5-14.5) % Plt Count (120.0-450.0) 10^3/uL MPV (7.0-11.0) fl Gran % (50.0-68.0) % Lymph % (Auto) (22.0-35.0) % [place] % (Auto) (1.0-6.0) % Eos % (Auto) (1.5-5.0) % Baso % (Auto) (0.0-3.0) % Gran # (1.4-6.5) Lymph # (1.2-3.4) [place] # (0.1-0.6) Eos # (0.0-0.7) Baso # (0.0-2.0) K/mm3 Sodium (132-148) mmol/L Potassium (3.6-5.0) mmol/L Chloride (98-107) mmol/L Carbon Dioxide (21-33) mmol/L Anion Gap (10-20) BUN (7-21) mg/dL Creatinine (0.7-1.2) mg/dl Est GFR ( Amer) Est GFR (Non-Af Amer) POC Glucose (mg/dL) (65-110) mg/dL Random Glucose (70-110) mg/dL Serum Osmolality 331 H 329 H 327 H (272-300) mosm/kg Calcium (8.4-10.5) mg/dL Total Bilirubin (0.2-1.3) mg/dL AST (14-36) U/L ALT (7-56) U/L Alkaline Phosphatase (38-126) U/L Total Protein (5.8-8.3) g/dL Albumin (3.0-4.8) g/dL Globulin gm/dL Albumin/Globulin Ratio (1.1-1.8) Laboratory Results - last 24 hr 09/26/17 09/27/17 09/27/17 18:35 00:10 05:00 WBC RBC Hgb Hct MCV MCH MCHC RDW Plt Count MPV Gran % Lymph % (Auto) [place] % (Auto) Eos % (Auto) Baso % (Auto) Gran # Lymph # [place] # Eos # Baso # Sodium Potassium Chloride Carbon Dioxide Anion Gap BUN Creatinine Est GFR ( Amer) Est GFR (Non-Af Amer) POC Glucose (mg/dL) Random Glucose Serum Osmolality 327 H 329 H 331 H Calcium Total Bilirubin AST ALT Alkaline Phosphatase Total Protein Albumin Globulin Albumin/Globulin Ratio 09/27/17 09/27/17 09/27/17 11:00 11:00 11:04 WBC RBC Hgb Hct MCV MCH MCHC RDW Plt Count MPV Gran % Lymph % (Auto) [place] % (Auto) Eos % (Auto) Baso % (Auto) Gran # Lymph # [place] # Eos # Baso # Sodium 163 H* Potassium 3.4 L Chloride 130 H Carbon Dioxide 24 Anion Gap 13 BUN 25 H Creatinine 0.8 Est GFR ( Amer) > 60 Est GFR (Non-Af Amer) > 60 POC Glucose (mg/dL) 121 H Random Glucose 185 H Serum Osmolality 337 H Calcium 8.6 Total Bilirubin AST ALT Alkaline Phosphatase Total Protein Albumin Globulin Albumin/Globulin Ratio 09/27/17 09/27/17 09/27/17 16:04 18:40 22:31 WBC RBC Hgb Hct MCV MCH MCHC RDW Plt Count MPV Gran % Lymph % (Auto) [place] % (Auto) Eos % (Auto) Baso % (Auto) Gran # Lymph # [place] # Eos # Baso # Sodium 162 H* Potassium 3.3 L Chloride 129 H Carbon Dioxide 24 Anion Gap 13 BUN 27 H Creatinine 0.9 Est GFR ( Amer) > 60 Est GFR (Non-Af Amer) > 60 POC Glucose (mg/dL) 153 H 154 H Random Glucose 177 H Serum Osmolality Calcium 8.6 Total Bilirubin AST ALT Alkaline Phosphatase Total Protein Albumin Globulin Albumin/Globulin Ratio 09/28/17 09/28/17 09/28/17 07:30 07:30 07:30 WBC 8.9 RBC 4.01 Hgb 12.9 Hct 40.1 MCV 100.0 MCH 32.2 MCHC 32.2 RDW 13.4 Plt Count 106 L MPV 10.1 Gran % 86.8 H Lymph % (Auto) 10.0 L [place] % (Auto) 3.2 Eos % (Auto) 0.0 L Baso % (Auto) 0.0 Gran # 7.71 H Lymph # 0.9 L [place] # 0.3 Eos # 0.0 Baso # 0.00 Sodium 158 H* Potassium 3.3 L Chloride 128 H Carbon Dioxide 24 Anion Gap 9 L BUN 29 H Creatinine 0.9 Est GFR ( Amer) > 60 Est GFR (Non-Af Amer) > 60 POC Glucose (mg/dL) Random Glucose 179 H Serum Osmolality 338 H Calcium 8.6 Total Bilirubin 1.0 AST 51 H D ALT 19 Alkaline Phosphatase 57 Total Protein 6.7 Albumin 3.1 Globulin 3.5 Albumin/Globulin Ratio 0.9 L Assessment/Plan - Assessment and Plan (Free Text) Plan: Patient seen and examined, with resident on rounds, agree with note with following additions/exceptions: 71yo female a/w acute Large R CVA with midline shift 1.5cm. Currently intubated , pupils fixed/dilated. Acute Right Large CVA MCA/IRMA [place] AMS Respiratory failure - currently afebrile, HD stable, on Cardene drip - repeat CT head with Acute Right Large CVA MCA/IRMA [place] with 1.5cm midline shift, hypodense ecephalomalacia, edema, evidence of subfalcine herniation - OFF 3% saline - neurology, and neurosurgery following, no neurosurgical intervention - extremely poor prognosis, awaiting palliative care consult Recomend: - cont with ventilatory support, low tidal vol ventilation, ABG acceptable - BP control, Cardene drip - hold 3% saline, Na 158 - LR - neuro checks - cont Propofol - follow up neurology - FS control 140-180 - maintain euthermia - GI ppx, PPI - DVT ppx, SCDs - follow up palliative care - Extremely poor prognosis, awaiting family to come in to have family discussion with palliative care Critical care time 45 minutes
--- NOTE | 2017-09-28 09:49 | RAD ---
HISTORY: s/p intubation COMPARISON: 09/27/2017 FINDINGS: LUNGS: No active pulmonary disease. PLEURA: No significant pleural effusion identified, no pneumothorax apparent. CARDIOVASCULAR: Mild cardiomegaly OSSEOUS STRUCTURES: No significant abnormalities. VISUALIZED UPPER ABDOMEN: Normal. OTHER FINDINGS: The endotracheal tube and right central line are unchanged IMPRESSION: No active disease.
[2017-09-28] MEDS: Propofol 10 mg/ml 1,000 MG/100 ML VIAL IV PRN (11:59)
[2017-09-28] MEDS ORDERED: Propofol 10 mg/ml 1,000 MG/100 ML VIAL IV PRN (12:02)
[2017-09-28] MEDS: Digoxin 500 mcg/2ml (0.5 mg/2ml) Inj IVP SCH (13:51)
--- NOTE | 2017-09-28 14:19 | RAD ---
HISTORY: OGT placement COMPARISON: No prior. FINDINGS: LUNGS: No active pulmonary disease. PLEURA: No significant pleural effusion identified, no pneumothorax apparent. CARDIOVASCULAR: Moderate cardiomegaly OSSEOUS STRUCTURES: No significant abnormalities. VISUALIZED UPPER ABDOMEN: Normal. OTHER FINDINGS: The endotracheal tube and central line are unchanged. IMPRESSION: Gastric tube is in satisfactory position
[2017-09-28 17:19] LABS: ARTERIAL BLOOD GAS HCO3 21.3 mmol/L (21-28); ARTERIAL BLOOD GAS PCO2 28 mm/Hg (35-45); ARTERIAL BLOOD GAS TCO2 22.2 mmol.L (22-28)
[2017-09-28 17:22] LABS: ARTERIAL BLOOD GAS PH 7.49 (7.35-7.45)
[2017-09-28 19:29] LABS: BLOOD UREA NITROGEN 38 mg/dL (7-21); CALCIUM 8.6 mg/dL (8.4-10.5); GFR AFRICAN-AMERICAN > 60; GFR NON-AFRICAN AMERICAN 54
--- NOTE | 2017-09-29 05:12 | PN ---
DATE: 09/28/2017 HISTORY OR PRESENT ILLNESS: This 71-year-old female remains in ICU, bed #7. She remains intubated, but at this point, has been made a Do Not Resuscitate by her family, all of whom were in agreement. She remains unresponsive, intubated and with worsening neurological changes noted on CAT scan including shift to the left on her head CT in the setting of a right anterior and middle cerebral artery acute stroke. There have been no reports of fever or chills and she remains in an atrial fibrillation rhythm on the bracelet former. PHYSICAL EXAMINATION: VITAL SIGNS: Temperature 98.9, respirations 18, pulse 71 and blood pressure 111/54 and a pulse ox of 97%. HEAD: Normocephalic, atraumatic. EYES: No icterus. EARS: Clear. THROAT: Noninjected. NECK: Supple. HEART: Irregular S1, S2. LUNGS: Occasional rhonchi. ABDOMEN: Soft. EXTREMITIES: No edema. SKIN: Without rash. NEUROLOGICAL: Unresponsive. VASCULAR: Legs warm to touch. PSYCHOLOGICAL: Sedated. LABORATORY DATA: White count 8900, hemoglobin 12.9, hematocrit 40.1, platelets 106,000. Sodium 156, K 3.8, chloride 125, bicarb 22, BUN 38, creatinine 1.0, random blood sugar 184. DIAGNOSTIC DATA: Repeat chest x-ray shows no pneumothorax, no pleural effusion, no infiltrate, no congestive heart failure. Endotracheal tube and right jugular central line are in place. 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 The patient is currently off 3% saline and is being followed by Neurology and Neurosurgery, who are not planning any neurosurgical intervention in this patient with an extremely poor prognosis. The plan at present will be to continue DNR status ventilatory support as per family desires, blood pressure control with IV Cardene drip. 3% saline has been discontinued. She continues on neuro checks, IV sedation with propofol, blood sugar coverage to maintain blood sugars between 140 and 180, GI prophylaxis, sequential compression device stockings for DVT prevention and also follow up with Palliative Care. Greater than 35 minutes was spent in the care, management, review of x-rays, labs, medication and discussion with websphere architect, Dr. Tj Martinez, regarding all of the above. Overall prognosis remains poor. Hortencia Manriquez MD MTDD
--- NOTE | 2017-09-29 06:58 | CP.CCUPN ---
<Ying Saldaña - Last Filed: 09/29/17 09:32> CCU Subjective - Physician Review Subjective (Free Text): 09/29/17 08:13 Patient seen and examined at bedside this AM. Patient remains intubated PRVC (60 , 5, 16, 350). Sedated on propofol. Patient spiked temp overnight 102.4F. Pupils dilated and fixed. Repeat CT of the head showed midline shift to the left measuring 1.5 cm. Evidence of subfalcine herniation. Tolerating feeds @ 20cc/hr with minimal residuals. Unable to obtain full ROS due to mentation. Vital signs stable at this time. Critical Care Time Spent (in minutes): 45 CCU Objective - Vital Signs / Intake & Output Vital Signs (Last 4 hours): Vital Signs Temp Pulse Resp BP Pulse Ox 09/29/17 06:30 83 22 116/59 L 93 L 09/29/17 06:15 75 19 93 L 09/29/17 06:00 83 19 108/65 93 L 09/29/17 05:45 86 22 94 L 09/29/17 05:30 80 20 115/65 94 L 09/29/17 05:15 83 19 93 L 09/29/17 05:00 94 H 20 116/68 93 L 09/29/17 04:45 87 18 92 L 09/29/17 04:30 105 H 31 H 130/73 90 L 09/29/17 04:22 102.4 F H 09/29/17 04:15 93 H 16 91 L 09/29/17 04:00 102.4 F H 91 H 16 127/68 91 L 09/29/17 03:45 90 17 90 L 09/29/17 03:30 106 H 16 127/57 L 90 L 09/29/17 03:15 127 H 16 90 L 09/29/17 03:00 107 H 16 150/85 91 L Intake and Output (Last 8hrs): Intake & Output 09/28/17 09/28/17 09/29/17 14:59 22:59 06:59 Intake Total 0 1430 870 Output Total 300 550 Balance 0 1130 320 Weight 55.021 kg Intake: IV 0 1310 630 Left Antecubital 0 Right Internal Jugular 965 630 Tube Feeding 120 240 Output: Urine 300 550 Urethral (Argueta) 300 550 Other: # Bowel Movements 0 - Physical Exam Head: Positive for: Normocephalic, Ecchymosis (around mouth) Pupils: Positive for: Other (fixed and dilated) Extroacular Muscles: Negative for: EOMI Conjunctiva: Positive for: Normal Mouth: Positive for: Drooling Neck: Positive for: Other (R. IJ central line in place) Respiratory/Chest: Positive for: Decreased Breath Sounds (b/l), Other ( intubated on vent (60, 5, 16, 350)). Negative for: Rales, Retracting, Rhonchi Cardiovascular: Positive for: Murmurs (systolic), Irregular Rhythm, Other ( systolic murmur) Abdomen: Positive for: Normal Bowel Sounds, Other (feeds @ 20cc/hr- minimal residual). Negative for: Tenderness, Distention, Peritoneal Signs Genitourinary/Pelvic Exam: Positive for: Other (Argueta in place; UO 850cc overnight) Upper Extremity: Positive for: Swelling Lower Extremity: Positive for: Normal Inspection. Negative for: Edema Neurological: Positive for: Other (0/5 muscle strength UE and LE b/l). Negative for: GCS=15, CN II-XII Intact (CN 9- gag reflex intact), Speech Normal , Motor Func Grossly Intact Skin: Positive for: Dry Psychiatric: Positive for: Other (sedated on propofol @ 3) - Medications Active Medications: Active Medications Generic Name Dose Route Start Last Admin Trade Name Freq PRN Reason Stop Dose Admin Acetaminophen 650 mg 09/25/17 10:28 09/29/17 04:22 Tylenol 325mg Tab PO 650 mg Q4 PRN Administration Fever >100.4 F Acetaminophen 650 mg 09/25/17 15:26 09/28/17 10:27 Tylenol 650 Mg Supp RC 650 mg Q6H PRN Administration Fever >100.4 F Dexamethasone 10 mg 09/27/17 10:30 09/29/17 03:01 Decadron Inj IVP 10 mg Q8H HARLAN Administration Digoxin 0.125 mg 09/26/17 14:00 09/28/17 13:51 Lanoxin IVP 0.125 mg 1400 HARLAN Administration Sodium Chloride 500 mls @ 50 mls/hr 09/26/17 16:51 Hypertonic Saline 3% IV .Q10H HARLAN Nicardipine HCl 20 mg in 200 mls @ 50 mls/hr 09/27/17 10:19 09/28/17 22:00 Cardene Iv Premix IV 4 mg/hr .Q4H PRN 40 mls/hr TITRATE PER MD ORDER Titration Protocol 5 MG/HR Propofol 1,000 mg in 100 mls @ 1.579 mls/hr 09/28/17 12:02 09/28/17 19:00 Diprivan IV 5 mcg/kg/min .Q24H PRN 1.579 mls/hr TITRATE PER MD ORDER Administration Protocol 5 MCG/KG/MIN Insulin Human Regular 0 units 09/25/17 11:30 09/28/17 22:00 Humulin R Med SC Not Given ACHS [facility] Protocol Labetalol HCl 5 mg 09/26/17 22:18 Trandate IV Q4H PRN Systolic Blood Pressure Ondansetron HCl 4 mg 09/25/17 15:26 Zofran Inj IVP Q6H PRN Nausea/Vomiting Pantoprazole Sodium 40 mg 09/25/17 15:30 09/28/17 10:18 Protonix Inj IVP 40 mg DAILY [facility] Administration - Patient Studies Lab Studies: Lab Studies 09/28/17 09/28/17 09/28/17 Range/Units 21:31 18:50 16:23 WBC (4.5-11.0) 10^3/ul RBC (3.5-6.1) 10^6/uL Hgb (12.0-16.0) g/dL Hct (36.0-48.0) % MCV (80.0-105.0) fl MCH (25.0-35.0) pg MCHC (31.0-37.0) g/dl RDW (11.5-14.5) % Plt Count (120.0-450.0) 10^3/uL MPV (7.0-11.0) fl Gran % (50.0-68.0) % Lymph % (Auto) (22.0-35.0) % [place] % (Auto) (1.0-6.0) % Eos % (Auto) (1.5-5.0) % Baso % (Auto) (0.0-3.0) % Gran # (1.4-6.5) Lymph # (1.2-3.4) [place] # (0.1-0.6) Eos # (0.0-0.7) Baso # (0.0-2.0) K/mm3 pCO2 (35-45) mm/Hg pO2 (80-100) mm/Hg HCO3 (21-28) mmol/L ABG pH (7.35-7.45) ABG Total CO2 (22-28) mmol.L ABG O2 Saturation (95-98) % ABG Base Excess (-2.0-3.0) mmol/L ABG Potassium (3.6-5.2) mmol/L Sodium 156 H* (132-148) mmol/L Chloride 125 H (98-107) mmol/L Glucose (65-105) mg/dl Lactate (0.7-2.1) mmol/L FiO2 % Potassium 3.8 (3.6-5.0) mmol/L Carbon Dioxide 22 (21-33) mmol/L Anion Gap 13 (10-20) BUN 38 H (7-21) mg/dL Creatinine 1.0 (0.7-1.2) mg/dl Est GFR ( Amer) > 60 Est GFR (Non-Af Amer) 54 POC Glucose (mg/dL) 190 H 184 H (65-110) mg/dL Random Glucose 237 H (70-110) mg/dL Serum Osmolality (272-300) mosm/kg Calcium 8.6 (8.4-10.5) mg/dL Total Bilirubin (0.2-1.3) mg/dL AST (14-36) U/L ALT (7-56) U/L Alkaline Phosphatase (38-126) U/L Total Protein (5.8-8.3) g/dL Albumin (3.0-4.8) g/dL Globulin gm/dL Albumin/Globulin Ratio (1.1-1.8) Arterial Blood Potassium (3.6-5.2) mmol/L 09/28/17 09/28/17 09/28/17 Range/Units 11:08 07:59 07:30 WBC (4.5-11.0) 10^3/ul RBC (3.5-6.1) 10^6/uL Hgb (12.0-16.0) g/dL Hct (36.0-48.0) % MCV (80.0-105.0) fl MCH (25.0-35.0) pg MCHC (31.0-37.0) g/dl RDW (11.5-14.5) % Plt Count (120.0-450.0) 10^3/uL MPV (7.0-11.0) fl Gran % (50.0-68.0) % Lymph % (Auto) (22.0-35.0) % [place] % (Auto) (1.0-6.0) % Eos % (Auto) (1.5-5.0) % Baso % (Auto) (0.0-3.0) % Gran # (1.4-6.5) Lymph # (1.2-3.4) [place] # (0.1-0.6) Eos # (0.0-0.7) Baso # (0.0-2.0) K/mm3 pCO2 (35-45) mm/Hg pO2 (80-100) mm/Hg HCO3 (21-28) mmol/L ABG pH (7.35-7.45) ABG Total CO2 (22-28) mmol.L ABG O2 Saturation (95-98) % ABG Base Excess (-2.0-3.0) mmol/L ABG Potassium (3.6-5.2) mmol/L Sodium (132-148) mmol/L Chloride (98-107) mmol/L Glucose (65-105) mg/dl Lactate (0.7-2.1) mmol/L FiO2 % Potassium (3.6-5.0) mmol/L Carbon Dioxide (21-33) mmol/L Anion Gap (10-20) BUN (7-21) mg/dL Creatinine (0.7-1.2) mg/dl Est GFR ( Amer) Est GFR (Non-Af Amer) POC Glucose (mg/dL) 147 H 157 H (65-110) mg/dL Random Glucose (70-110) mg/dL Serum Osmolality 338 H (272-300) mosm/kg Calcium (8.4-10.5) mg/dL Total Bilirubin (0.2-1.3) mg/dL AST (14-36) U/L ALT (7-56) U/L Alkaline Phosphatase (38-126) U/L Total Protein (5.8-8.3) g/dL Albumin (3.0-4.8) g/dL Globulin gm/dL Albumin/Globulin Ratio (1.1-1.8) Arterial Blood Potassium (3.6-5.2) mmol/L 09/28/17 09/28/17 09/28/17 Range/Units 07:30 07:30 06:30 WBC 8.9 (4.5-11.0) 10^3/ul RBC 4.01 (3.5-6.1) 10^6/uL Hgb 12.9 (12.0-16.0) g/dL Hct 40.1 (36.0-48.0) % MCV 100.0 (80.0-105.0) fl MCH 32.2 (25.0-35.0) pg MCHC 32.2 (31.0-37.0) g/dl RDW 13.4 (11.5-14.5) % Plt Count 106 L (120.0-450.0) 10^3/uL MPV 10.1 (7.0-11.0) fl Gran % 86.8 H (50.0-68.0) % Lymph % (Auto) 10.0 L (22.0-35.0) % [place] % (Auto) 3.2 (1.0-6.0) % Eos % (Auto) 0.0 L (1.5-5.0) % Baso % (Auto) 0.0 (0.0-3.0) % Gran # 7.71 H (1.4-6.5) Lymph # 0.9 L (1.2-3.4) [place] # 0.3 (0.1-0.6) Eos # 0.0 (0.0-0.7) Baso # 0.00 (0.0-2.0) K/mm3 pCO2 28 L (35-45) mm/Hg pO2 75.0 L (80-100) mm/Hg HCO3 21.3 (21-28) mmol/L ABG pH 7.49 H (7.35-7.45) ABG Total CO2 22.2 (22-28) mmol.L ABG O2 Saturation 97.0 (95-98) % ABG Base Excess -0.9 (-2.0-3.0) mmol/L ABG Potassium 3.1 L (3.6-5.2) mmol/L Sodium 158 H* 159.0 H (132-148) mmol/L Chloride 128 H 130.0 H (98-107) mmol/L Glucose 181 H (65-105) mg/dl Lactate 1.8 (0.7-2.1) mmol/L FiO2 50.0 % Potassium 3.3 L (3.6-5.0) mmol/L Carbon Dioxide 24 (21-33) mmol/L Anion Gap 9 L (10-20) BUN 29 H (7-21) mg/dL Creatinine 0.9 (0.7-1.2) mg/dl Est GFR ( Amer) > 60 Est GFR (Non-Af Amer) > 60 POC Glucose (mg/dL) (65-110) mg/dL Random Glucose 179 H (70-110) mg/dL Serum Osmolality (272-300) mosm/kg Calcium 8.6 (8.4-10.5) mg/dL Total Bilirubin 1.0 (0.2-1.3) mg/dL AST 51 H D (14-36) U/L ALT 19 (7-56) U/L Alkaline Phosphatase 57 (38-126) U/L Total Protein 6.7 (5.8-8.3) g/dL Albumin 3.1 (3.0-4.8) g/dL Globulin 3.5 gm/dL Albumin/Globulin Ratio 0.9 L (1.1-1.8) Arterial Blood Potassium 3.1 L (3.6-5.2) mmol/L 09/27/17 Range/Units 18:40 WBC (4.5-11.0) 10^3/ul RBC (3.5-6.1) 10^6/uL Hgb (12.0-16.0) g/dL Hct (36.0-48.0) % MCV (80.0-105.0) fl MCH (25.0-35.0) pg MCHC (31.0-37.0) g/dl RDW (11.5-14.5) % Plt Count (120.0-450.0) 10^3/uL MPV (7.0-11.0) fl Gran % (50.0-68.0) % Lymph % (Auto) (22.0-35.0) % [place] % (Auto) (1.0-6.0) % Eos % (Auto) (1.5-5.0) % Baso % (Auto) (0.0-3.0) % Gran # (1.4-6.5) Lymph # (1.2-3.4) [place] # (0.1-0.6) Eos # (0.0-0.7) Baso # (0.0-2.0) K/mm3 pCO2 (35-45) mm/Hg pO2 (80-100) mm/Hg HCO3 (21-28) mmol/L ABG pH (7.35-7.45) ABG Total CO2 (22-28) mmol.L ABG O2 Saturation (95-98) % ABG Base Excess (-2.0-3.0) mmol/L ABG Potassium (3.6-5.2) mmol/L Sodium (132-148) mmol/L Chloride (98-107) mmol/L Glucose (65-105) mg/dl Lactate (0.7-2.1) mmol/L FiO2 % Potassium (3.6-5.0) mmol/L Carbon Dioxide (21-33) mmol/L Anion Gap (10-20) BUN (7-21) mg/dL Creatinine (0.7-1.2) mg/dl Est GFR ( Amer) Est GFR (Non-Af Amer) POC Glucose (mg/dL) (65-110) mg/dL Random Glucose (70-110) mg/dL Serum Osmolality 338 H (272-300) mosm/kg Calcium (8.4-10.5) mg/dL Total Bilirubin (0.2-1.3) mg/dL AST (14-36) U/L ALT (7-56) U/L Alkaline Phosphatase (38-126) U/L Total Protein (5.8-8.3) g/dL Albumin (3.0-4.8) g/dL Globulin gm/dL Albumin/Globulin Ratio (1.1-1.8) Arterial Blood Potassium (3.6-5.2) mmol/L Laboratory Results - last 24 hr 0109/28/17 09/28/17 18:40 06:30 07:30 WBC 8.9 RBC 4.01 Hgb 12.9 Hct 40.1 MCV 100.0 MCH 32.2 MCHC 32.2 RDW 13.4 Plt Count 106 L MPV 10.1 Gran % 86.8 H Lymph % (Auto) 10.0 L [place] % (Auto) 3.2 Eos % (Auto) 0.0 L Baso % (Auto) 0.0 Gran # 7.71 H Lymph # 0.9 L [place] # 0.3 Eos # 0.0 Baso # 0.00 pCO2 28 L pO2 75.0 L HCO3 21.3 ABG pH 7.49 H ABG Total CO2 22.2 ABG O2 Saturation 97.0 ABG Base Excess -0.9 ABG Potassium 3.1 L Sodium 159.0 H Chloride 130.0 H Glucose 181 H Lactate 1.8 FiO2 50.0 Potassium Carbon Dioxide Anion Gap BUN Creatinine Est GFR ( Amer) Est GFR (Non-Af Amer) POC Glucose (mg/dL) Random Glucose Serum Osmolality 338 H Calcium Total Bilirubin AST ALT Alkaline Phosphatase Total Protein Albumin Globulin Albumin/Globulin Ratio Arterial Blood Potassium 3.1 L 09/28/17 09/28/17 09/28/17 07:30 07:30 07:59 WBC RBC Hgb Hct MCV MCH MCHC RDW Plt Count MPV Gran % Lymph % (Auto) [place] % (Auto) Eos % (Auto) Baso % (Auto) Gran # Lymph # [place] # Eos # Baso # pCO2 pO2 HCO3 ABG pH ABG Total CO2 ABG O2 Saturation ABG Base Excess ABG Potassium Sodium 158 H* Chloride 128 H Glucose Lactate FiO2 Potassium 3.3 L Carbon Dioxide 24 Anion Gap 9 L BUN 29 H Creatinine 0.9 Est GFR ( Amer) > 60 Est GFR (Non-Af Amer) > 60 POC Glucose (mg/dL) 157 H Random Glucose 179 H Serum Osmolality 338 H Calcium 8.6 Total Bilirubin 1.0 AST 51 H D ALT 19 Alkaline Phosphatase 57 Total Protein 6.7 Albumin 3.1 Globulin 3.5 Albumin/Globulin Ratio 0.9 L Arterial Blood Potassium 09/28/17 09/28/17 09/28/17 11:08 16:23 18:50 WBC RBC Hgb Hct MCV MCH MCHC RDW Plt Count MPV Gran % Lymph % (Auto) [place] % (Auto) Eos % (Auto) Baso % (Auto) Gran # Lymph # [place] # Eos # Baso # pCO2 pO2 HCO3 ABG pH ABG Total CO2 ABG O2 Saturation ABG Base Excess ABG Potassium Sodium 156 H* Chloride 125 H Glucose Lactate FiO2 Potassium 3.8 Carbon Dioxide 22 Anion Gap 13 BUN 38 H Creatinine 1.0 Est GFR ( Amer) > 60 Est GFR (Non-Af Amer) 54 POC Glucose (mg/dL) 147 H 184 H Random Glucose 237 H Serum Osmolality Calcium 8.6 Total Bilirubin AST ALT Alkaline Phosphatase Total Protein Albumin Globulin Albumin/Globulin Ratio Arterial Blood Potassium 09/28/17 21:31 WBC RBC Hgb Hct MCV MCH MCHC RDW Plt Count MPV Gran % Lymph % (Auto) [place] % (Auto) Eos % (Auto) Baso % (Auto) Gran # Lymph # [place] # Eos # Baso # pCO2 pO2 HCO3 ABG pH ABG Total CO2 ABG O2 Saturation ABG Base Excess ABG Potassium Sodium Chloride Glucose Lactate FiO2 Potassium Carbon Dioxide Anion Gap BUN Creatinine Est GFR ( Amer) Est GFR (Non-Af Amer) POC Glucose (mg/dL) 190 H Random Glucose Serum Osmolality Calcium Total Bilirubin AST ALT Alkaline Phosphatase Total Protein Albumin Globulin Albumin/Globulin Ratio Arterial Blood Potassium Fingerstick Blood Sugar Results: 190 Review of Systems - Review of Systems Systems not reviewed;Unavailable: Intubated Assessment/Plan - Assessment and Plan (Free Text) Assessment: 71yo female presents with 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 Hypernatermia, trending down- off 3% saline. Currently hemodynamically stable, afebrile. Plan: Neuro: Intubated- unresponsive; pupils dilated and fixed back on propofol gtt R. CVA with 1.5cm midline shift and evidence of subfalcine hernation- off 3% Saline Decadron 10mg ivp q8 Tylenol for temp Neurochecks c/s Neurosurgery c/s Neurology- recommend conservative management at this time Cardio: continue to monitor vitals Digoxin 0.125mg ivp qd Labetalol 5mg ivp q4 prn Cardene gtt MAP > 65 Echo: dilated LA; mild concentric LVH; LV systolic function appears wnl; no obvious wall motion abnl; diastolic function not adequately assessed; mild tricuspid regurgitation Pulm: Intubated- on PRVC (60, 5, 16, 350) keep SaO2 above 92% GI: GI ppx Protonix 40mg ivp qd Zofran 4mg ivp q6 prn Feeds @ 20cc/hr with flushes 250cc q4 Renal/Electrolytes: Trend Sodium off 3% saline replace electrolytes PRN argueta in place- Monitor I/O Endo: Keep pt euglycemic, euvolemic RISS medium Accucheck q6h Heme: will monitor Hgb daily no acute issues DVT ppx ID f/u blood, urine, and sputum culture f/u procalcitonin Dispo: poor prognosis; palliative care is on board Discussed with Dr. Michelle Saldaña PGY2 <Tj Martinez - Last Filed: 09/29/17 10:22> CCU Objective - Vital Signs / Intake & Output Vital Signs (Last 4 hours): Vital Signs Temp Pulse Resp BP Pulse Ox 09/29/17 08:30 82 16 111/59 L 92 L 09/29/17 08:15 81 16 92 L 09/29/17 08:12 92 H 106/68 09/29/17 08:00 100.9 F H 78 16 106/68 91 L 09/29/17 07:45 71 16 91 L 09/29/17 07:30 74 16 118/60 91 L 09/29/17 07:15 84 16 92 L 09/29/17 07:00 78 18 115/66 92 L 09/29/17 06:45 78 19 92 L 09/29/17 06:30 83 22 116/59 L 93 L Intake and Output (Last 8hrs): Intake & Output 09/28/17 09/29/17 09/29/17 22:59 06:59 14:59 Intake Total 1430 931 Output Total 300 550 Balance 1130 381 Intake: IV 1310 691 Left Antecubital 0 Right Internal Jugular 965 630 Tube Feeding 120 240 Output: Urine 300 550 Urethral (Argueta) 300 550 Other: # Bowel Movements 0 - Medications Active Medications: Active Medications Generic Name Dose Route Start Last Admin Trade Name Freq PRN Reason Stop Dose Admin Acetaminophen 650 mg 09/25/17 10:28 09/29/17 04:22 Tylenol 325mg Tab PO 650 mg Q4 PRN Administration Fever >100.4 F Acetaminophen 650 mg 09/25/17 15:26 09/28/17 10:27 Tylenol 650 Mg Supp RC 650 mg Q6H PRN Administration Fever >100.4 F Dexamethasone 10 mg 09/27/17 10:30 09/29/17 03:01 Decadron Inj IVP 10 mg Q8H HARLAN Administration Digoxin 0.125 mg 09/26/17 14:00 09/28/17 13:51 Lanoxin IVP 0.125 mg 1400 HARLAN Administration Sodium Chloride 500 mls @ 50 mls/hr 09/26/17 16:51 Hypertonic Saline 3% IV .Q10H HARLAN Nicardipine HCl 20 mg in 200 mls @ 50 mls/hr 09/27/17 10:19 09/29/17 08:12 Cardene Iv Premix IV 6 mg/hr .Q4H PRN 60 mls/hr TITRATE PER MD ORDER Administration Protocol 5 MG/HR Propofol 1,000 mg in 100 mls @ 1.579 mls/hr 09/28/17 12:02 09/28/17 23:00 Diprivan IV 9.5 mcg/kg/min .Q24H PRN 3 mls/hr TITRATE PER MD ORDER Titration Protocol 5 MCG/KG/MIN Insulin Human Regular 0 units 09/25/17 11:30 09/29/17 08:15 Humulin R Med SC 5 units ACHS HARLAN Administration Protocol Labetalol HCl 5 mg 09/26/17 22:18 Trandate IV Q4H PRN Systolic Blood Pressure Ondansetron HCl 4 mg 09/25/17 15:26 Zofran Inj IVP Q6H PRN Nausea/Vomiting Pantoprazole Sodium 40 mg 09/25/17 15:30 09/28/17 10:18 Protonix Inj IVP 40 mg DAILY HARLAN Administration - Patient Studies Lab Studies: Lab Studies 09/29/17 09/29/17 09/29/17 Range/Units 07:52 06:00 06:00 WBC 10.8 D (4.5-11.0) 10^3/ul RBC 4.12 (3.5-6.1) 10^6/uL Hgb 13.4 (12.0-16.0) g/dL Hct 41.3 (36.0-48.0) % MCV 100.2 (80.0-105.0) fl MCH 32.5 (25.0-35.0) pg MCHC 32.4 (31.0-37.0) g/dl RDW 13.6 (11.5-14.5) % Plt Count 118 L (120.0-450.0) 10^3/uL MPV 10.5 (7.0-11.0) fl pCO2 (35-45) mm/Hg pO2 (80-100) mm/Hg HCO3 (21-28) mmol/L ABG pH (7.35-7.45) ABG Total CO2 (22-28) mmol.L ABG O2 Saturation (95-98) % ABG Base Excess (-2.0-3.0) mmol/L ABG Potassium (3.6-5.2) mmol/L Sodium 156 H* (132-148) mmol/L Chloride 124 H (98-107) mmol/L Glucose (65-105) mg/dl Lactate (0.7-2.1) mmol/L FiO2 % Potassium 3.9 (3.6-5.0) mmol/L Carbon Dioxide 21 (21-33) mmol/L Anion Gap 14 (10-20) BUN 45 H (7-21) mg/dL Creatinine 1.2 (0.7-1.2) mg/dl Est GFR ( Amer) 53 Est GFR (Non-Af Amer) 44 POC Glucose (mg/dL) 278 H (65-110) mg/dL Random Glucose 341 H* D (70-110) mg/dL Serum Osmolality (272-300) mosm/kg Calcium 8.3 L (8.4-10.5) mg/dL Total Bilirubin 0.8 (0.2-1.3) mg/dL AST 54 H (14-36) U/L ALT 22 (7-56) U/L Alkaline Phosphatase 51 (38-126) U/L Total Protein 6.3 (5.8-8.3) g/dL Albumin 3.2 (3.0-4.8) g/dL Globulin 3.0 gm/dL Albumin/Globulin Ratio 1.1 (1.1-1.8) Arterial Blood Potassium (3.6-5.2) mmol/L 09/28/17 09/28/17 09/28/17 Range/Units 21:31 18:50 16:23 WBC (4.5-11.0) 10^3/ul RBC (3.5-6.1) 10^6/uL Hgb (12.0-16.0) g/dL Hct (36.0-48.0) % MCV (80.0-105.0) fl MCH (25.0-35.0) pg MCHC (31.0-37.0) g/dl RDW (11.5-14.5) % Plt Count (120.0-450.0) 10^3/uL MPV (7.0-11.0) fl pCO2 (35-45) mm/Hg pO2 (80-100) mm/Hg HCO3 (21-28) mmol/L ABG pH (7.35-7.45) ABG Total CO2 (22-28) mmol.L ABG O2 Saturation (95-98) % ABG Base Excess (-2.0-3.0) mmol/L ABG Potassium (3.6-5.2) mmol/L Sodium 156 H* (132-148) mmol/L Chloride 125 H (98-107) mmol/L Glucose (65-105) mg/dl Lactate (0.7-2.1) mmol/L FiO2 % Potassium 3.8 (3.6-5.0) mmol/L Carbon Dioxide 22 (21-33) mmol/L Anion Gap 13 (10-20) BUN 38 H (7-21) mg/dL Creatinine 1.0 (0.7-1.2) mg/dl Est GFR ( Amer) > 60 Est GFR (Non-Af Amer) 54 POC Glucose (mg/dL) 190 H 184 H (65-110) mg/dL Random Glucose 237 H (70-110) mg/dL Serum Osmolality (272-300) mosm/kg Calcium 8.6 (8.4-10.5) mg/dL Total Bilirubin (0.2-1.3) mg/dL AST (14-36) U/L ALT (7-56) U/L Alkaline Phosphatase (38-126) U/L Total Protein (5.8-8.3) g/dL Albumin (3.0-4.8) g/dL Globulin gm/dL Albumin/Globulin Ratio (1.1-1.8) Arterial Blood Potassium (3.6-5.2) mmol/L 09/28/17 09/28/17 09/28/17 Range/Units 11:08 07:59 07:30 WBC (4.5-11.0) 10^3/ul RBC (3.5-6.1) 10^6/uL Hgb (12.0-16.0) g/dL Hct (36.0-48.0) % MCV (80.0-105.0) fl MCH (25.0-35.0) pg MCHC (31.0-37.0) g/dl RDW (11.5-14.5) % Plt Count (120.0-450.0) 10^3/uL MPV (7.0-11.0) fl pCO2 (35-45) mm/Hg pO2 (80-100) mm/Hg HCO3 (21-28) mmol/L ABG pH (7.35-7.45) ABG Total CO2 (22-28) mmol.L ABG O2 Saturation (95-98) % ABG Base Excess (-2.0-3.0) mmol/L ABG Potassium (3.6-5.2) mmol/L Sodium (132-148) mmol/L Chloride (98-107) mmol/L Glucose (65-105) mg/dl Lactate (0.7-2.1) mmol/L FiO2 % Potassium (3.6-5.0) mmol/L Carbon Dioxide (21-33) mmol/L Anion Gap (10-20) BUN (7-21) mg/dL Creatinine (0.7-1.2) mg/dl Est GFR ( Amer) Est GFR (Non-Af Amer) POC Glucose (mg/dL) 147 H 157 H (65-110) mg/dL Random Glucose (70-110) mg/dL Serum Osmolality 338 H (272-300) mosm/kg Calcium (8.4-10.5) mg/dL Total Bilirubin (0.2-1.3) mg/dL AST (14-36) U/L ALT (7-56) U/L Alkaline Phosphatase (38-126) U/L Total Protein (5.8-8.3) g/dL Albumin (3.0-4.8) g/dL Globulin gm/dL Albumin/Globulin Ratio (1.1-1.8) Arterial Blood Potassium (3.6-5.2) mmol/L 09/28/17 09/27/17 Range/Units 06:30 18:40 WBC (4.5-11.0) 10^3/ul RBC (3.5-6.1) 10^6/uL Hgb (12.0-16.0) g/dL Hct (36.0-48.0) % MCV (80.0-105.0) fl MCH (25.0-35.0) pg MCHC (31.0-37.0) g/dl RDW (11.5-14.5) % Plt Count (120.0-450.0) 10^3/uL MPV (7.0-11.0) fl pCO2 28 L (35-45) mm/Hg pO2 75.0 L (80-100) mm/Hg HCO3 21.3 (21-28) mmol/L ABG pH 7.49 H (7.35-7.45) ABG Total CO2 22.2 (22-28) mmol.L ABG O2 Saturation 97.0 (95-98) % ABG Base Excess -0.9 (-2.0-3.0) mmol/L ABG Potassium 3.1 L (3.6-5.2) mmol/L Sodium 159.0 H (132-148) mmol/L Chloride 130.0 H (98-107) mmol/L Glucose 181 H (65-105) mg/dl Lactate 1.8 (0.7-2.1) mmol/L FiO2 50.0 % Potassium (3.6-5.0) mmol/L Carbon Dioxide (21-33) mmol/L Anion Gap (10-20) BUN (7-21) mg/dL Creatinine (0.7-1.2) mg/dl Est GFR ( Amer) Est GFR (Non-Af Amer) POC Glucose (mg/dL) (65-110) mg/dL Random Glucose (70-110) mg/dL Serum Osmolality 338 H (272-300) mosm/kg Calcium (8.4-10.5) mg/dL Total Bilirubin (0.2-1.3) mg/dL AST (14-36) U/L ALT (7-56) U/L Alkaline Phosphatase (38-126) U/L Total Protein (5.8-8.3) g/dL Albumin (3.0-4.8) g/dL Globulin gm/dL Albumin/Globulin Ratio (1.1-1.8) Arterial Blood Potassium 3.1 L (3.6-5.2) mmol/L Laboratory Results - last 24 hr 09/27/17 09/28/17 09/28/17 18:40 06:30 07:30 WBC RBC Hgb Hct MCV MCH MCHC RDW Plt Count MPV pCO2 28 L pO2 75.0 L HCO3 21.3 ABG pH 7.49 H ABG Total CO2 22.2 ABG O2 Saturation 97.0 ABG Base Excess -0.9 ABG Potassium 3.1 L Sodium 159.0 H Chloride 130.0 H Glucose 181 H Lactate 1.8 FiO2 50.0 Potassium Carbon Dioxide Anion Gap BUN Creatinine Est GFR ( Amer) Est GFR (Non-Af Amer) POC Glucose (mg/dL) Random Glucose Serum Osmolality 338 H 338 H Calcium Total Bilirubin AST ALT Alkaline Phosphatase Total Protein Albumin Globulin Albumin/Globulin Ratio Arterial Blood Potassium 3.1 L 09/28/17 09/28/17 09/28/17 07:59 11:08 16:23 WBC RBC Hgb Hct MCV MCH MCHC RDW Plt Count MPV pCO2 pO2 HCO3 ABG pH ABG Total CO2 ABG O2 Saturation ABG Base Excess ABG Potassium Sodium Chloride Glucose Lactate FiO2 Potassium Carbon Dioxide Anion Gap BUN Creatinine Est GFR ( Amer) Est GFR (Non-Af Amer) POC Glucose (mg/dL) 157 H 147 H 184 H Random Glucose Serum Osmolality Calcium Total Bilirubin AST ALT Alkaline Phosphatase Total Protein Albumin Globulin Albumin/Globulin Ratio Arterial Blood Potassium 09/28/17 09/28/17 09/29/17 18:50 21:31 06:00 WBC 10.8 D RBC 4.12 Hgb 13.4 Hct 41.3 MCV 100.2 MCH 32.5 MCHC 32.4 RDW 13.6 Plt Count 118 L MPV 10.5 pCO2 pO2 HCO3 ABG pH ABG Total CO2 ABG O2 Saturation ABG Base Excess ABG Potassium Sodium 156 H* Chloride 125 H Glucose Lactate FiO2 Potassium 3.8 Carbon Dioxide 22 Anion Gap 13 BUN 38 H Creatinine 1.0 Est GFR ( Amer) > 60 Est GFR (Non-Af Amer) 54 POC Glucose (mg/dL) 190 H Random Glucose 237 H Serum Osmolality Calcium 8.6 Total Bilirubin AST ALT Alkaline Phosphatase Total Protein Albumin Globulin Albumin/Globulin Ratio Arterial Blood Potassium 09/29/17 09/29/17 06:00 07:52 WBC RBC Hgb Hct MCV MCH MCHC RDW Plt Count MPV pCO2 pO2 HCO3 ABG pH ABG Total CO2 ABG O2 Saturation ABG Base Excess ABG Potassium Sodium 156 H* Chloride 124 H Glucose Lactate FiO2 Potassium 3.9 Carbon Dioxide 21 Anion Gap 14 BUN 45 H Creatinine 1.2 Est GFR ( Amer) 53 Est GFR (Non-Af Amer) 44 POC Glucose (mg/dL) 278 H Random Glucose 341 H* D Serum Osmolality Calcium 8.3 L Total Bilirubin 0.8 AST 54 H ALT 22 Alkaline Phosphatase 51 Total Protein 6.3 Albumin 3.2 Globulin 3.0 Albumin/Globulin Ratio 1.1 Arterial Blood Potassium Assessment/Plan - Assessment and Plan (Free Text) Plan: Patient seen and examined, with resident on rounds, agree with note with following additions/exceptions: 71yo female a/w acute Large R CVA with midline shift 1.5cm. Currently intubated , pupils fixed/dilated. On exam does not over breath the ventilator, no corneal reflex. Does have gag reflex. Started to have fevers overnight, likely central fevers, will culture, and obtain CXR. Acute Right Large CVA MCA/IRMA Territory AMS Respiratory failure Fever - repeat CT head with Acute Right Large CVA MCA/IRMA Territory with 1.5cm midline shift, hypodense ecephalomalacia, edema, evidence of subfalcine herniation - Na 158 - neurology, and neurosurgery following, no neurosurgical intervention - extremely poor prognosis, palliative care following Recommend: - cont with ventilatory support, low tidal vol ventilation, ABG acceptable - BP control, Cardene drip - hold 3% saline, Na 158 - Decadron - neuro checks - hold sedation - panculture, CXR - follow up neurology - FS control 140-180 - maintain euthermia - GI ppx, PPI - DVT ppx, SCDs - follow up palliative care - Extremely poor prognosis, patient is now DNR family not ready withdraw care at this time. Palliative care following Critical care time 45 minutes
[2017-09-29 07:33] LABS: HEMOGLOBIN 13.4 g/dL (12.0-16.0); MEAN CELL VOLUME 100.2 fl (80.0-105.0); MEAN CORPUSCULAR HEMOGLOBIN 32.5 pg (25.0-35.0); MEAN CORPUSCULAR HGB CONC 32.4 g/dl (31.0-37.0); MEAN PLATELET VOLUME 10.5 fl (7.0-11.0); RBC 4.12 10^6/uL (3.5-6.1); RED CELL DISTRIBUTION WIDTH 13.6 % (11.5-14.5); WHITE BLOOD COUNT 10.8 10^3/ul (4.5-11.0)
[2017-09-29 08:06] LABS: ALB/GLOB RATIO 1.1 (1.1-1.8); ALBUMIN 3.2 g/dL (3.0-4.8); CALCIUM 8.3 mg/dL (8.4-10.5)
[2017-09-29] MEDS: Nicardipine 20 MG/200 ML 20 MG/200 ML BAG IV PRN ×2 (08:12→11:55)
[2017-09-29] MEDS: Insulin Reg-MEDIUM-Coverage SC SCH ×3 (08:15→17:50)
[2017-09-29 08:33] VITALS: RESP 16
[2017-09-29] MEDS ORDERED: Propofol 10 mg/ml 1,000 MG/100 ML VIAL IV PRN (10:52)
--- NOTE | 2017-09-29 13:01 | CP.PCM.PN ---
Subjective - Date & Time of Evaluation Date of Evaluation: 09/29/17 Time of Evaluation: 13:00 - Subjective Subjective: Chart examined and patinet seen. In brief, this is a 71 year old female with history of A Fib, CVA with Left sided weakness who presented with altered mental status and left hemipilegia. She was intubated upon arrival to ED. CT of head showed a large right MCA ischemic stroke with left midline shift. Patient has been seen by neurosurgery and is not a candidate for craniotomy. Since hospitalization, the patient was found to have a subfalcine herniation that was progressively worsening. She was placed on DNR status and this morning, she has fixed and dilated pupils, and is not breathing over the vent. EEG and repeat CT head are being performed emergently. PMHx: A Fib not on anticoagulation therapy, previous CVA with left sided weakness, HTN,GERD,HLD. Family History: Never smoked, no alcohol or drug use. , lives with spouse. Family Hisoyt:Non contributory Advance Care Planning: The patient does not have an Advanced Directive On exam: Obtunded, sedated, pupils fixed and dilated. weak gag, no corneals, no spontaneous movement. Does not localize. +1 dtr. no strength no movement. no tremors. Objective - Vital Signs/Intake and Output Vital Signs (last 24 hours): Temp Pulse Resp BP Pulse Ox 100.9 F H 82 16 112/56 L 92 L 09/29/17 08:00 09/29/17 10:30 09/29/17 10:30 09/29/17 10:30 09/29/17 10:30 Intake and Output: 09/29/17 09/29/17 06:59 18:59 Intake Total 1076 Output Total 550 Balance 526 - Medications Medications: Current Medications Acetaminophen (Tylenol 325mg Tab) 650 mg PO Q4 PRN PRN Reason: Fever >100.4 F Last Admin: 09/29/17 04:22 Dose: 650 mg Acetaminophen (Tylenol 650 Mg Supp) 650 mg RC Q6H PRN PRN Reason: Fever >100.4 F Last Admin: 09/28/17 10:27 Dose: 650 mg Dexamethasone (Decadron Inj) 10 mg IVP Q8H [facility] Last Admin: 09/29/17 10:51 Dose: 10 mg Digoxin (Lanoxin) 0.125 mg IVP 1400 [facility] Last Admin: 09/28/17 13:51 Dose: 0.125 mg Sodium Chloride (Hypertonic Saline 3%) 500 mls @ 50 mls/hr IV .Q10H [facility] Nicardipine HCl (Cardene Iv Premix) 20 mg in 200 mls @ 50 mls/hr IV .Q4H PRN; Protocol; 5 MG/HR PRN Reason: TITRATE PER MD ORDER Last Admin: 09/29/17 08:12 Dose: 6 mg/hr, 60 mls/hr Propofol (Diprivan) 1,000 mg in 100 mls @ 1.579 mls/hr IV .Q24H PRN; Protocol; 5 MCG/KG/MIN PRN Reason: TITRATE PER MD ORDER Insulin Human Regular (Humulin R Med) 0 units SC ACHS [facility] PRN Reason: Protocol Last Admin: 09/29/17 08:15 Dose: 5 units Labetalol HCl (Trandate) 5 mg IV Q4H PRN PRN Reason: Systolic Blood Pressure Ondansetron HCl (Zofran Inj) 4 mg IVP Q6H PRN PRN Reason: Nausea/Vomiting Pantoprazole Sodium (Protonix Inj) 40 mg IVP DAILY [facility] Last Admin: 09/29/17 10:51 Dose: 40 mg - Labs Labs: 09/29/17 06:00 09/29/17 06:00 PT 12.1 SECONDS (9.4-12.5) 09/25/17 10:40 INR 1.05 (0.93-1.08) 09/25/17 10:40 APTT 33.0 Seconds (25.1-36.5) 09/25/17 10:40 Assessment and Plan - Assessment and Plan (Free Text) Assessment: 71 yr old woman with massive lt mca stroke, now herniating, most likely uncal, transtentorial and subfalcine, with fixed and dilated pupils. She is DNR and we are initiating brain protocol. Plan: 1. EEG 2. Brain perfusion scan 3. Repeat CT head. Case and plan discussed with attending, family and resident.
--- NOTE | 2017-09-29 13:12 | RAD ---
HISTORY: intubated on vent COMPARISON: 09/28/2017 FINDINGS: LUNGS: Opacity at right base new since prior examination. Concerning for pneumonia. No abnormal left-sided opacity. PLEURA: Minimal blunting of right costophrenic angle may reflect small pleural effusion. No pneumothorax. No left pleural effusion. CARDIOVASCULAR: Mild cardiomegaly. ET tube, NG tube and right IJ central venous catheter. OSSEOUS STRUCTURES: No significant abnormalities. VISUALIZED UPPER ABDOMEN: Normal. OTHER FINDINGS: None. IMPRESSION: New right basilar opacity concerning for pneumonia. Otherwise no change.
--- NOTE | 2017-09-29 13:13 | CT ---
PROCEDURE: CT HEAD WITHOUT CONTRAST. HISTORY: monitoring of large R CVA COMPARISON: 09/27/2017 TECHNIQUE: Axial computed tomography images were obtained through the head/brain without intravenous contrast. Radiation dose: Total exam DLP = 801 mGy-cm. This CT exam was performed using one or more of the following dose reduction techniques: Automated exposure control, adjustment of the mA and/or kV according to patient size, and/or use of iterative reconstruction technique. FINDINGS: HEMORRHAGE: New small hemorrhages are seen in the brainstem BRAIN: There is no change in the appearance of the massive right hemispheric infarct with 1.4 cm of midline shift. There is new infarction of the brainstem. The brainstem is diffusely hypodense. There are focal areas of hemorrhage within the brainstem. VENTRICLES: The right lateral ventricle is completely compressed. The left ventricle is mildly dilated CALVARIUM: Unremarkable. PARANASAL SINUSES: Unremarkable as visualized. No significant inflammatory changes. MASTOID AIR CELLS: Unremarkable as visualized. No inflammatory changes. OTHER FINDINGS: Findings were discussed with the Intensive Care Physician at 1:10 p.m. IMPRESSION: New brainstem infarction and hemorrhage. No change in appearance of massive infarct of the right hemisphere with midline shift.
[2017-09-29] MEDS: Digoxin 500 mcg/2ml (0.5 mg/2ml) Inj IVP SCH (13:46)
[2017-09-30 05:36] LABS: ARTERIAL BLOOD GAS HCO3 24.6 mmol/L (21-28); ARTERIAL BLOOD GAS HEMOGLOBIN 12.6 g/dL (11.7-17.4); ARTERIAL BLOOD GAS O2 CAPACITY 17.3 mL/dl (16-24); ARTERIAL BLOOD GAS O2 CONTENT 16.2 ML/dl (15-23); ARTERIAL BLOOD GAS O2 SAT 93.9 % (95-98); ARTERIAL BLOOD GAS PCO2 37 mm/Hg (35-45); ARTERIAL BLOOD GAS PH 7.43 (7.35-7.45); ARTERIAL BLOOD GAS TCO2 25.7 mmol.L (22-28)
--- NOTE | 2017-09-30 06:18 | CP.PCM.PN ---
Subjective - Date & Time of Evaluation Date of Evaluation: 09/30/17 Time of Evaluation: 06:13 - Subjective Subjective: Ms. Flor was seen and examined at the bedside in ICU. She remains on mechanical ventilator with PRVC mode. Her GCS-3T. Her pupils are 5 mm, mydriasis and non reactive to light. She does not response to pain stimuli in comparison from previous examination. The repeat CT of the head showed new brainstem herniation and hemorrhage. There is no change in the infaction of the right hemisphere with midline shift. The patient is DNR. There was no untoward events overnight. Objective - Vital Signs/Intake and Output Vital Signs (last 24 hours): Temp Pulse Resp BP Pulse Ox 99.1 F 65 16 108/47 L 93 L 09/30/17 00:00 09/30/17 00:00 09/30/17 00:00 09/30/17 00:00 09/30/17 00:00 Intake and Output: 09/29/17 09/30/17 18:59 06:59 Intake Total 1125 Output Total 550 Balance 575 - Medications Medications: Current Medications Acetaminophen (Tylenol 325mg Tab) 650 mg PO Q4 PRN PRN Reason: Fever >100.4 F Last Admin: 09/29/17 04:22 Dose: 650 mg Acetaminophen (Tylenol 650 Mg Supp) 650 mg RC Q6H PRN PRN Reason: Fever >100.4 F Last Admin: 09/28/17 10:27 Dose: 650 mg Dexamethasone (Decadron Inj) 10 mg IVP Q8H [facility] Last Admin: 09/30/17 02:24 Dose: 10 mg Digoxin (Lanoxin) 0.125 mg IVP 1400 [facility] Last Admin: 09/29/17 13:46 Dose: 0.125 mg Sodium Chloride (Hypertonic Saline 3%) 500 mls @ 50 mls/hr IV .Q10H [facility] Nicardipine HCl (Cardene Iv Premix) 20 mg in 200 mls @ 50 mls/hr IV .Q4H PRN; Protocol; 5 MG/HR PRN Reason: TITRATE PER MD ORDER Last Titration: 09/29/17 17:03 Dose: 0 mg/hr, 0 mls/hr Propofol (Diprivan) 1,000 mg in 100 mls @ 1.579 mls/hr IV .Q24H PRN; Protocol; 5 MCG/KG/MIN PRN Reason: TITRATE PER MD ORDER Labetalol HCl (Trandate) 5 mg IV Q4H PRN PRN Reason: Systolic Blood Pressure Ondansetron HCl (Zofran Inj) 4 mg IVP Q6H PRN PRN Reason: Nausea/Vomiting Pantoprazole Sodium (Protonix Inj) 40 mg IVP DAILY [facility] Last Admin: 09/29/17 10:51 Dose: 40 mg - Labs Labs: 09/29/17 06:00 09/29/17 06:00 PT 12.1 SECONDS (9.4-12.5) 09/25/17 10:40 INR 1.05 (0.93-1.08) 09/25/17 10:40 APTT 33.0 Seconds (25.1-36.5) 09/25/17 10:40 - Constitutional Appears: No Acute Distress - Eye Exam Pupil Exam: Mydriatic Additional comments: 5 mm, non-reactive - Neurological Exam Neuro motor strength exam: Left Upper Extremity: 0, Right Upper Extremity: 0, Left Lower Extremity: 0, Right Lower Extremity: 0 Additional comments: GCS-3T Assessment and Plan (1) CVA (cerebral vascular accident) Assessment & Plan: Case discussed with Dr. Williamson, continue all current medical regimen. Pending brain protocol such as EEG and brain flow. Status: Acute
[2017-09-30 06:31] LABS: HEMOGLOBIN 11.8 g/dL (12.0-16.0); MEAN CELL VOLUME 99.7 fl (80.0-105.0); MEAN CORPUSCULAR HGB CONC 32.1 g/dl (31.0-37.0); MEAN PLATELET VOLUME 10.6 fl (7.0-11.0); RBC 3.69 10^6/uL (3.5-6.1); RED CELL DISTRIBUTION WIDTH 13.7 % (11.5-14.5); WHITE BLOOD COUNT 7.2 10^3/ul (4.5-11.0)
[2017-09-30 06:49] LABS: ALBUMIN 2.7 g/dL (3.0-4.8); CALCIUM 8.7 mg/dL (8.4-10.5); MAGNESIUM 3.1 mg/dL (1.7-2.2)
--- NOTE | 2017-09-30 08:07 | CP.PCM.PN ---
<Lore Ro - Last Filed: 09/30/17 10:43> Subjective - Date & Time of Evaluation Date of Evaluation: 09/30/17 Time of Evaluation: 08:05 - Subjective Subjective: ICU Progress Note for Agnes Crisostomo PGY2 Patient seen and examined at bedside. As per nursing staff, there were no acute overnight events. Patient is intubated, not on sedation. GCS=3. ROS could not be obtained. Objective - Vital Signs/Intake and Output Vital Signs (last 24 hours): Temp Pulse Resp BP Pulse Ox 97.5 F L 57 L 16 110/61 92 L 09/30/17 07:30 09/30/17 07:30 09/30/17 07:35 09/30/17 07:30 09/30/17 07:35 Intake and Output: 09/30/17 09/30/17 06:59 18:59 Intake Total 990 Output Total 100 Balance 890 - Medications Medications: Current Medications Acetaminophen (Tylenol 325mg Tab) 650 mg PO Q4 PRN PRN Reason: Fever >100.4 F Last Admin: 09/29/17 04:22 Dose: 650 mg Acetaminophen (Tylenol 650 Mg Supp) 650 mg RC Q6H PRN PRN Reason: Fever >100.4 F Last Admin: 09/28/17 10:27 Dose: 650 mg Dexamethasone (Decadron Inj) 10 mg IVP Q8H [facility] Last Admin: 09/30/17 02:24 Dose: 10 mg Digoxin (Lanoxin) 0.125 mg IVP 1400 [facility] Last Admin: 09/29/17 13:46 Dose: 0.125 mg Sodium Chloride (Hypertonic Saline 3%) 500 mls @ 50 mls/hr IV .Q10H [facility] Nicardipine HCl (Cardene Iv Premix) 20 mg in 200 mls @ 50 mls/hr IV .Q4H PRN; Protocol; 5 MG/HR PRN Reason: TITRATE PER MD ORDER Last Titration: 09/29/17 17:03 Dose: 0 mg/hr, 0 mls/hr Propofol (Diprivan) 1,000 mg in 100 mls @ 1.579 mls/hr IV .Q24H PRN; Protocol; 5 MCG/KG/MIN PRN Reason: TITRATE PER MD ORDER Labetalol HCl (Trandate) 5 mg IV Q4H PRN PRN Reason: Systolic Blood Pressure Ondansetron HCl (Zofran Inj) 4 mg IVP Q6H PRN PRN Reason: Nausea/Vomiting Pantoprazole Sodium (Protonix Inj) 40 mg IVP DAILY [facility] Last Admin: 09/29/17 10:51 Dose: 40 mg - Labs Labs: 09/30/17 06:00 09/30/17 06:00 PT 12.1 SECONDS (9.4-12.5) 09/25/17 10:40 INR 1.05 (0.93-1.08) 09/25/17 10:40 APTT 33.0 Seconds (25.1-36.5) 09/25/17 10:40 - Constitutional Appears: No Acute Distress, Chronically Ill - Head Exam Head Exam: ATRAUMATIC, NORMAL INSPECTION, NORMOCEPHALIC - Eye Exam Pupil Exam: Fixed, Mydriatic - ENT Exam ENT Exam: Mucous Membranes Moist - Respiratory Exam Respiratory Exam: Clear to Ausculation Bilateral, NORMAL BREATHING PATTERN. absent: Rales, Rhonchi, Wheezes - Cardiovascular Exam Cardiovascular Exam: REGULAR RHYTHM, +S1, +S2. absent: Gallop, Rubs, Murmur - GI/Abdominal Exam GI & Abdominal Exam: Soft, Normal Bowel Sounds. absent: Tenderness - Neurological Exam Neurological Exam: absent: Alert, Awake Neuro motor strength exam: Left Upper Extremity: 0, Right Upper Extremity: 0, Left Lower Extremity: 0, Right Lower Extremity: 0 Additional comments: No dolls eye, corneal or pupillary reflex. Pt is not overbreathing vent, but has gag reflex. GCS=3. She does not withdraw to pain at all. - Skin Skin Exam: Dry, Warm Assessment and Plan - Assessment and Plan (Free Text) Assessment: This is a 71yo [place] female with PMH of a.fib (was not on anticoagulation at home), CVA and HTN who was admitted for respiratory failure secondary to large acute R CVA in the MCA and IRMA territory with cerebal edema and midline shift. Most recent head CT showed new brain stem infarction and hemorrhage without change in massive infarction or midline shift. Plan: Neuro: R CVA with midline shift and now brainstem herniation and hemorrhage Intubated, not on sedation (GCS= 3) Continue Decadron q8h Maintain normothemia (no fever overnight) Tylenol prn fever Continue neurochecks EEG pending As per neuro- will need brain flow scan to declare brain Neurosurgery- no surgical intervention at this time Seizure precaution Cardio: Hx of A.fib Cardene stopped (pt bradycardic) Continue Digoxin Maintain MAP >65 Maintain SBP 100-120s Pulm: Pt intubated on PRVC Maintain spO2>92% Protective lung ventilation strategy (HOB elevated, aspiration precaution) GI: Pt on Feeds@20 cc per hr Free water flushes 250ml q4h Continue GI ppx and monitor I&O Heme: CT head showed brain stem hemorrhage Hgb stable- will continue to monitor Hold anticoagulation Nephro: Pt off of hypertonic saline Na: 161 Will start D5W to decrease sodium and recheck BMP Continue free water flushes Continue to monitor electrolytes and replace as needed Cabezas in place- monitor I&O ID: Pt had fevers yesterday No fevers overnight, no leukocytosis despite being on IV decadron Septic work up pending PCT: 2.17 Will start pt on Vanc and Zosyn for risk of hospital acquired infections Endo: Maintain euglycemia, euvolemia Dispo: Patient is DNR as per family. Prognosis poor. EEG and brain flow pending for declaration of brain Case seen, discussed and reviewed with attending. Agnes Ro PGY2 <James Yan - Last Filed: 09/30/17 12:02> Objective - Vital Signs/Intake and Output Vital Signs (last 24 hours): Temp Pulse Resp BP Pulse Ox 96.6 F L 63 16 98/47 L 94 L 09/30/17 11:00 09/30/17 11:00 09/30/17 11:00 09/30/17 11:00 09/30/17 11:00 Intake and Output: 09/30/17 09/30/17 06:59 18:59 Intake Total 990 Output Total 100 Balance 890 - Medications Medications: Current Medications Acetaminophen (Tylenol 650 Mg Supp) 650 mg RC Q6H PRN PRN Reason: Fever >100.4 F Last Admin: 09/28/17 10:27 Dose: 650 mg Dexamethasone (Decadron Inj) 10 mg IVP Q8H [facility] Last Admin: 09/30/17 09:43 Dose: 10 mg Digoxin (Lanoxin) 0.125 mg IVP 1400 [facility] Last Admin: 09/29/17 13:46 Dose: 0.125 mg Dextrose (Dextrose 5% In Water 1000 Ml) 1,000 mls @ 75 mls/hr IV .[id number] [facility] Last Admin: 09/30/17 09:43 Dose: 75 mls/hr Vancomycin HCl (Vancomycin 1gm) 1 gm in 250 mls @ 167 mls/hr IVPB DAILY [facility] PRN Reason: Protocol Last Admin: 09/30/17 10:22 Dose: 167 mls/hr Piperacillin Sod/Tazobactam Sod (Zosyn 3.375 In Ns 100ml) 100 mls @ 200 mls/hr IVPB Q6 [facility] PRN Reason: Protocol Stop: 09/30/17 18:29 Insulin Human Regular (Humulin R Med) 0 units SC Q6H [facility] PRN Reason: Protocol Ondansetron HCl (Zofran Inj) 4 mg IVP Q6H PRN PRN Reason: Nausea/Vomiting Pantoprazole Sodium (Protonix Inj) 40 mg IVP DAILY [facility] Last Admin: 09/30/17 09:43 Dose: 40 mg - Labs Labs: 09/30/17 06:00 09/30/17 06:00 PT 12.1 SECONDS (9.4-12.5) 09/25/17 10:40 INR 1.05 (0.93-1.08) 09/25/17 10:40 APTT 33.0 Seconds (25.1-36.5) 09/25/17 10:40 Attending/Attestation - Attestation I have personally seen and examined this patient.: Yes I have fully participated in the care of the patient.: Yes I have reviewed all pertinent clinical information, including history, physical exam and plan: Yes Notes (Text): 09/30/17 11:21 The patient was seen and examined at the bedside. Patient care was discussed with resident Medical records, lab studies, and imaging were reviewed and management issues were discussed and formulated. Last 24H events reviewed. Agree with above treatment plans as outlined in 's note with addition of the following: -hemodynamic monitoring to maintain MAP>65 -mechanical ventilation to maintain Spo2>90 Pao2>60; current mode PRVC -ABG reviewed and CXR reviewed -start broad spectrum Abx to cover for nosocomial infection and f\u cultures -possibility pt is having central fevers; consider ID eval -f\u Bun\Cr and U\o; monitor serial Na+ levels; continue free h20 and start D5W -neurology team f\u -tube feeds and aspiration precautions -DVT \ PUD prophylaxis CCM time 32mins
--- NOTE | 2017-09-30 08:34 | PN ---
DATE: 09/29/2017 CRITICAL CARE PROGRESS NOTE SUBJECTIVE: This 71-year-old female remains in ICU bed 7. At present, she is a DNR, ventilatory dependent, unresponsive with significant right middle cerebral and right anterior cerebral artery stroke with worsening signs on followup CT and MRI scans showing shift to the left and the patient in a persistent vegetative state now with no corneal reflexes. I have discussed this case in detail with Dr. Tj Martinez, chief investment officer. The patient continues with NG tube feeds, respiratory support, bedside therapy for range of motion and medications including IV Cardene, IV Decadron, IV Diprivan, insulin coverage, IV Lanoxin, Protonix and Tylenol p.r.n. The patient has been running low grade fevers in the absence of positive blood cultures. PHYSICAL EXAMINATION: VITAL SIGNS: At present, temperature is 100.9, respirations 16, pulse 92, blood pressure 96/55 with a pulse ox of 94%. Urine output is approximately 900 mL thus far today. HEENT: Head: Normocephalic, atraumatic. Eyes: No corneal reflex. Ears: Clear. Throat: Noninjected. NECK: Supple. HEART: Irregular S1, S2. LUNGS: No wheezing. ABDOMEN: Soft. EXTREMITIES: No edema. SKIN: Without rash. NEUROLOGICAL: Unresponsive. VASCULAR: Legs warm to touch. LABORATORY DATA: White count 10,800, hemoglobin 13.4, hematocrit 41.3, platelets 118,000. Sodium 156, K 3.9, chloride 124, bicarb 21, BUN 45, creatinine 1.2, random blood sugar 278, bilirubin 0.8, AST 54, ALT 22, alk phos 51. Procalcitonin level 2.17. Blood and urine cultures no growth to date with no MRSA detected on nasal swab. IMPRESSION: A 71-year-old female status post right cerebrovascular accident, left-sided hemiplegia, unresponsive vegetative state, chronic atrial fibrillation, ventilatory dependent, receiving nasogastric tube enteral feedings and wearing anti-embolism sequential compression device stockings, who remains do not resuscitate with poor prognosis. PLAN: The plan at present as discussed with Intensive Care will be to maintain the patient DNR while providing palliative care including specialty mattress, antiembolism stockings, tube feeds. An EEG has been ordered to evaluate brain wave status. She continues on ventilatory support, IV Decadron, Lanoxin, Cardene, blood pressure drip, potassium replacement as needed, IV Diprivan, IV Protonix, Tylenol rectal suppositories p.r.n. She is ordered to have a comprehensive metabolic panel, CBC, magnesium level in a.m. and overall prognosis remains guarded. Greater than 35 minutes was spent in the intensive care, discussion and management of this patient today. She will continue to be treated in a supportive state. Prognosis is dismal. Hortencia Manriquez MD [facility] # [id number] MTDD
[2017-09-30] MEDS ORDERED: Vancomycin 1gm in NS 250ml 1 GM/250 ML BAG IVPB SCH (10:00)
[2017-09-30] MEDS ORDERED: Insulin Reg-MEDIUM-Coverage SC SCH ×3 (10:45→12:00)
--- NOTE | 2017-09-30 11:34 | RAD ---
HISTORY: intubated and vent COMPARISON: No prior. FINDINGS: The the in situ ETT, tip of which lies approximately 5.9 cm above laurel. In situ feeding tube again seen with tip overlying left upper quadrant of the abdomen. No change right IJ central venous line with tip in the SVC. LUNGS: Right lower lobe opacity with air bronchograms. Probable right-sided effusion. Mild left basilar atelectasis with suspected small left effusion. PLEURA: No significant pleural effusion identified, no pneumothorax apparent. CARDIOVASCULAR: Heart size difficult to assess due to silhouetting of the right cardiac border however unchanged in overall size/appearance. The OSSEOUS STRUCTURES: No significant abnormalities. VISUALIZED UPPER ABDOMEN: Normal. OTHER FINDINGS: None. IMPRESSION: Support lines and tubes as above. Right lower lobe opacity with air bronchograms. Probable right-sided effusion. Mild left basilar atelectasis with suspected small left effusion. Right
[2017-09-30] MEDS ORDERED: Piperacillin/Tazobact 3.375 gm 100 ML IVPB SCH (12:00)
[2017-09-30] MEDS: Digoxin 500 mcg/2ml (0.5 mg/2ml) Inj IVP SCH (14:07)
[2017-09-30 14:13] VITALS: PULSE 78
--- NOTE | 2017-09-30 16:57 | NM ---
PROCEDURE: Scan and flow study. HISTORY: brain COMPARISON: 2017. CT head TECHNIQUE: 15.0 mCi technetium 99 M pertechnetate administered. FINDINGS: Bolus administration: Technically acceptable. Flow is not identified in the cerebral hemispheres or any supra tentorial. IMPRESSION: Scintigraphic findings consistent with and criteria are met for brain .
[2017-09-30 17:47] LABS: CALCIUM 8.6 mg/dL (8.4-10.5)
--- NOTE | 2017-10-01 07:25 | CP.PCM.PN ---
<Lore Ro - Last Filed: 10/01/17 10:15> Subjective - Date & Time of Evaluation Date of Evaluation: 10/01/17 Time of Evaluation: 07:25 - Subjective Subjective: ICU Progress Note for Agnes Reed PGY2 Patient seen and examined at bedside. As per nursing staff, there were no acute overnight events. Yesterday patient had a brain flow scan and showed that she does NOT have any brain flow. Dr. Williamson, the neurologist, and myself spoke with the family about the results. The family understands that the patient is clinically brain , but they do not want to make the decision to withdraw care. They state that they do not want her to get any more medications, but would like to continue the feeding on her. Patient is intubated, not on sedation. She has no brain stem reflexes. ROS could not be obtained. Objective - Vital Signs/Intake and Output Vital Signs (last 24 hours): Temp Pulse Resp BP Pulse Ox 99.5 F 73 16 102/49 L 89 L 10/01/17 05:15 10/01/17 05:15 10/01/17 05:15 10/01/17 05:00 10/01/17 05:15 - Medications Medications: Current Medications Dextrose (Dextrose 5% In Water 1000 Ml) 1,000 mls @ 75 mls/hr IV .[id number] HARLAN Last Admin: 10/01/17 00:42 Dose: 75 mls/hr - Labs Labs: 09/30/17 06:00 09/30/17 17:10 PT 12.1 SECONDS (9.4-12.5) 09/25/17 10:40 INR 1.05 (0.93-1.08) 09/25/17 10:40 APTT 33.0 Seconds (25.1-36.5) 09/25/17 10:40 - Constitutional Appears: Chronically Ill - Head Exam Head Exam: ATRAUMATIC, NORMAL INSPECTION, NORMOCEPHALIC - Eye Exam Pupil Exam: Fixed, Mydriatic - ENT Exam ENT Exam: Mucous Membranes Moist - Respiratory Exam Respiratory Exam: Clear to Ausculation Bilateral, NORMAL BREATHING PATTERN. absent: Rales, Rhonchi, Wheezes - Cardiovascular Exam Cardiovascular Exam: REGULAR RHYTHM, +S1, +S2. absent: Gallop, Rubs, Murmur - GI/Abdominal Exam GI & Abdominal Exam: Soft, Normal Bowel Sounds. absent: Tenderness, Rebound - Extremities Exam Extremities Exam: Normal Inspection. absent: Pedal Edema - Neurological Exam Neurological Exam: absent: Alert, Awake, CN II-XII Intact, Oriented x3 Neuro motor strength exam: Left Upper Extremity: 0, Right Upper Extremity: 0, Left Lower Extremity: 0, Right Lower Extremity: 0 Additional comments: Patient does not have brain stem reflexes: dolls eye, gag, corneal, calimetric reflexes. She does not withdraw to pain. - Skin Skin Exam: Dry, Warm Assessment and Plan - Assessment and Plan (Free Text) Assessment: This is a 71yo Sinhala female with PMH of a.fib (was not on anticoagulation at home), CVA and HTN who was admitted for respiratory failure secondary to large acute R CVA in the MCA and IRMA territory with cerebal edema and midline shift. Most recent head CT showed new brain stem infarction and hemorrhage without change in massive infarction or midline shift. Patient is found to have no flow on her brain flow scan, she is not overbreathing the ventilator and does not have any brain stem reflexes. Patient was not able to tolerate apnea test. But the family agreed to stop all medications and lab draws for patient. They would like to just continue feeding the patient for now. Palliative care is on consult. Case seen, discussed and reviewed with attending. Agnes Ro PGY2 <Toan Sol B - Last Filed: 10/01/17 16:34> Objective - Vital Signs/Intake and Output Vital Signs (last 24 hours): Temp Pulse Resp BP Pulse Ox 99.9 F H 83 16 105/37 L 90 L 10/01/17 15:00 10/01/17 15:00 10/01/17 15:00 10/01/17 15:00 10/01/17 15:00 Intake and Output: 10/01/17 10/01/17 06:59 18:59 Intake Total 1890 Output Total 350 Balance 1540 - Labs Labs: 09/30/17 06:00 10/01/17 06:40 PT 12.1 SECONDS (9.4-12.5) 09/25/17 10:40 INR 1.05 (0.93-1.08) 09/25/17 10:40 APTT 33.0 Seconds (25.1-36.5) 09/25/17 10:40 Attending/Attestation - Attestation I have personally seen and examined this patient.: Yes I have fully participated in the care of the patient.: Yes I have reviewed all pertinent clinical information, including history, physical exam and plan: Yes Notes (Text): 10/01/17 16:30 71 yo female with MCA stroke and malignant brain edema. First neuro exam-->no brainstem reflexes. Waiting to repeat second neuro exam after 6 hours. Family at present time decided against terminal extubation, however opted for no escalation of care. Target euvolemia, euglycemia, normothermia and 02sat>90%. Did not tolerate apnea test. ccm time 40 min
[2017-10-01 07:42] LABS: ALB/GLOB RATIO 0.9 (1.1-1.8); ALBUMIN 2.6 g/dL (3.0-4.8); CALCIUM 8.4 mg/dL (8.4-10.5)
--- NOTE | 2017-10-01 08:28 | PN ---
DATE: 09/30/2017 CRITICAL CARE PROGRESS NOTE SUBJECTIVE: This 71-year-old female remains hospitalized in ICU bed 7. She remains a DNR, intubated with latest CAT scan showing worsening neurological findings including newly noted hemorrhagic stroke, now in her brain stem with a left shift of her ventricles in the setting of a right anterior and middle cerebral artery large stroke. The patient is unresponsive, intubated, with absent corneal reflexes. At present, there have been no reports of fever or chills or seizure. PHYSICAL EXAMINATION VITAL SIGNS: Temperature was 96.6, respirations 16, pulse 63 and blood pressure 98/47 with a pulse ox of 94%. HEENT: Head: Normocephalic, atraumatic. Eyes: No icterus. Ears clear. Throat: ET tube is in place. NECK: Supple. HEART: Irregular S1, S2. LUNGS: Occasional rhonchi. ABDOMEN: Soft. EXTREMITIES: No edema. SKIN: Without rash. NEUROLOGICAL: Unresponsive. VASCULAR: Legs warm to touch. LABORATORY DATA: White count 7200, hemoglobin 11.8, hematocrit 36.8, platelets 83,000. Sodium 161, K 4.5, chloride 129, bicarb 27, BUN 42, creatinine 1.2, random blood sugar 199. Bilirubin 0.7, AST 36, ALT 30 and alk phos 46. Microbiology report show blood cultures with no growth at 24 hours. IMPRESSION: This is a 71-year-old female status post large right anterior and middle cerebral artery stroke with left brain shift now with newly noted brainstem hemorrhagic stroke and comorbidities of chronic atrial fibrillation, unresponsive, absent corneal reflexes. Electrolyte imbalances including hypernatremia, status post hypertonic saline management for acute stroke syndrome and hyperglycemia. PLAN: The patient remains DNR. She is on pulmonary support therapy with ventilatory and respiratory support. She continues on Decadron IV D5W insulin coverage, IV digoxin, IV Protonix and IV vancomycin and piperacillin and given IV vancomycin and Zosyn under the direction of Intensive Care Physician, Dr. Martinez. The patient has daily chest x-rays for positioning of ET tube. She is awaiting EEG. She will be treated with sequential compression device, antiembolism stockings or tube feeds and palliative measures. Overall prognosis remains dismal. Greater than 35 minutes was spent in the care, review of management, x-rays, labs and medications for this patient today. Hortencia Manriquez MD [facility] # [id number] [place]
[2017-10-01 09:42] LABS: ARTERIAL BLOOD GAS HCO3 23.2 mmol/L (21-28); ARTERIAL BLOOD GAS HEMOGLOBIN 12.7 g/dL (11.7-17.4); ARTERIAL BLOOD GAS O2 CAPACITY 17.4 mL/dl (16-24); ARTERIAL BLOOD GAS O2 CONTENT 16.1 ML/dl (15-23); ARTERIAL BLOOD GAS O2 SAT 92.6 % (95-98); ARTERIAL BLOOD GAS PCO2 45 mm/Hg (35-45); ARTERIAL BLOOD GAS PH 7.32 (7.35-7.45); ARTERIAL BLOOD GAS TCO2 24.6 mmol.L (22-28)
--- NOTE | 2017-10-01 12:26 | CP.PCM.PN ---
Subjective - Date & Time of Evaluation Date of Evaluation: 10/01/17 Time of Evaluation: 12:26 - Subjective Subjective: Ms. Flor was seen and examined at the bedside. She remains on mechanical ventilator on a PRVC mode. There is no sedation. GCS-3T. Her pupils are 6 mm equal and non-reactive. She is not responding to any stimuli. She had EEG and brain flow study yesterday. The neurologist spoke to the patient's family last night with emphasis of poor prognosis. The patient is DNR. There was no untoward events overnight. Objective - Vital Signs/Intake and Output Vital Signs (last 24 hours): Temp Pulse Resp BP Pulse Ox 99.0 F 89 16 104/72 90 L 10/01/17 08:15 10/01/17 10:00 10/01/17 08:15 10/01/17 08:00 10/01/17 08:15 Intake and Output: 10/01/17 10/01/17 06:59 18:59 Intake Total 1890 Output Total 350 Balance 1540 - Labs Labs: 09/30/17 06:00 10/01/17 06:40 PT 12.1 SECONDS (9.4-12.5) 09/25/17 10:40 INR 1.05 (0.93-1.08) 09/25/17 10:40 APTT 33.0 Seconds (25.1-36.5) 09/25/17 10:40 - Constitutional Appears: No Acute Distress - Head Exam Head Exam: NORMAL INSPECTION - Eye Exam Pupil Exam: Mydriatic Additional comments: non reactive - Neurological Exam Neuro motor strength exam: Left Upper Extremity: 2/1, Right Upper Extremity: 2/1 , Left Lower Extremity: 2/1, Right Lower Extremity: 2/1 Additional comments: GCS-3T. Assessment and Plan (1) CVA (cerebral vascular accident) Assessment & Plan: Case discussed with Dr. Williamson, continue all current medical regimen. Recommend brain protocol. Jimbo flow study showed consistent and met criteria for brain . Status: Acute
--- NOTE | 2017-10-01 16:04 | CP.PCM.PN ---
Subjective - Date & Time of Evaluation Date of Evaluation: 10/01/17 Time of Evaluation: 23:10 - Subjective Subjective: Unresponsive, intubated. Objective - Vital Signs/Intake and Output Vital Signs (last 24 hours): Temp Pulse Resp BP Pulse Ox 99.9 F H 83 16 105/37 L 90 L 10/01/17 15:00 10/01/17 15:00 10/01/17 15:00 10/01/17 15:00 10/01/17 15:00 Intake and Output: 10/01/17 10/01/17 06:59 18:59 Intake Total 1890 Output Total 350 Balance 1540 - Labs Labs: 09/30/17 06:00 10/01/17 06:40 PT 12.1 SECONDS (9.4-12.5) 09/25/17 10:40 INR 1.05 (0.93-1.08) 09/25/17 10:40 APTT 33.0 Seconds (25.1-36.5) 09/25/17 10:40 - Constitutional Appears: Chronically Ill - Eye Exam Pupil Exam: Fixed - ENT Exam ENT Exam: Mucous Membranes Moist - Respiratory Exam Respiratory Exam: Decreased Breath Sounds - Cardiovascular Exam Cardiovascular Exam: REGULAR RHYTHM, +S1, +S2 - GI/Abdominal Exam GI & Abdominal Exam: Soft, Hypoactive Bowel Sounds - Extremities Exam Extremities Exam: Normal Capillary Refill, Pedal Edema - Skin Skin Exam: Dry, Warm Assessment and Plan - Assessment and Plan (Free Text) Assessment: 71 year old female with history of HTN and CVA and A fib who is admitted with a massive infarct of right hemisphere,midline shift,brainstem infarction. She is ventilator dependent. GCS 3. She does not respond to any stimuli. Pupils are fixed. Brain flow study consistent with brain . Family told of that patient is considered brain . Family has been told by neurologist there is no hope of recovery. Family has made the patient DNR but do not want to withdraw ventilator or nutritional support. Family cites spiritism reason for this decision. Family offered LTAC. and are agreeable to this plan. Psychosocial support given. Time spent with family in goals of care discussion Plan: Psychosocial support Transfer to lTAC
--- NOTE | 2017-10-02 06:24 | CP.PCM.PN ---
"Subjective - Date & Time of Evaluation Date of Evaluation: 10/02/17 Time of Evaluation: 06:21 - Subjective Subjective: Ms. Flor was seen and examined at the bedside in [facility]. She remains intubated with a GCS-#T, pupils are 6 mm, mydriasis and non reactive to light. She has an NGT for feeding purposes. She also has bilateral lower extremities SCD's. Brain flow protocol was started yesterday. The patient is a DNR. There was no untoward events overnight. Objective - Vital Signs/Intake and Output Vital Signs (last 24 hours): Temp Pulse Resp BP Pulse Ox 97.0 F L 60 16 102/56 L 92 L 10/02/17 02:45 10/02/17 02:45 10/02/17 02:45 10/02/17 02:00 10/02/17 02:45 Intake and Output: 10/01/17 10/02/17 18:59 06:59 Intake Total 820 Output Total 300 Balance 520 - Labs Labs: 09/30/17 06:00 10/01/17 06:40 PT 12.1 SECONDS (9.4-12.5) 09/25/17 10:40 INR 1.05 (0.93-1.08) 09/25/17 10:40 APTT 33.0 Seconds (25.1-36.5) 09/25/17 10:40 - Constitutional Appears: No Acute Distress, Chronically Ill - Head Exam Head Exam: NORMAL INSPECTION - Eye Exam Pupil Exam: Mydriatic Additional comments: 6 mm. non reactive - Neurological Exam Neuro motor strength exam: Left Upper Extremity: 0, Right Upper Extremity: 0, Left Lower Extremity: 0, Right Lower Extremity: 0 Additional comments: GCS-3T Assessment and Plan (1) CVA (cerebral vascular accident) Assessment & Plan: Case discussed with Dr. Williamson, continue all current medical regimen. Recommend palliative care. Status: Acute"
[2017-10-02] MEDS ORDERED: NOREPINEPHRINE BIT/0.9 % NACL 4 MG/250 ML BAG IV PRN (07:17)
--- NOTE | 2017-10-02 07:42 | CP.PCM.PN ---
<Lore Ro - Last Filed: 10/02/17 08:31> Subjective - Date & Time of Evaluation Date of Evaluation: 10/02/17 Time of Evaluation: 07:36 - Subjective Subjective: ICU Progress Note for Agnes Reed PGY2 Patient seen and examined at bedside. There were no acute overnight events as per nursing staff. Patient is intubated and not of sedation. ROS could not be obtained. Patient had a large BM this morning. Objective - Vital Signs/Intake and Output Vital Signs (last 24 hours): Temp Pulse Resp BP Pulse Ox 97.0 F L 60 16 102/56 L 92 L 10/02/17 02:45 10/02/17 02:45 10/02/17 02:45 10/02/17 02:00 10/02/17 02:45 - Medications Medications: Current Medications NOREPINEPHRINE BIT/0.9 % NACL (Levophed 4 Mg/ 250 Ml Ns Premixed) 4 mg in 250 mls @ 15 mls/hr IV .[id number] PRN; Protocol; 4 MCG/MIN PRN Reason: TITRATE PER MD ORDER - Labs Labs: 09/30/17 06:00 10/01/17 06:40 PT 12.1 SECONDS (9.4-12.5) 09/25/17 10:40 INR 1.05 (0.93-1.08) 09/25/17 10:40 APTT 33.0 Seconds (25.1-36.5) 09/25/17 10:40 - Constitutional Appears: Chronically Ill - Head Exam Head Exam: NORMAL INSPECTION, NORMOCEPHALIC - Eye Exam Pupil Exam: Mydriatic - ENT Exam ENT Exam: Mucous Membranes Moist - Neck Exam Neck Exam: Full ROM - Respiratory Exam Respiratory Exam: Clear to Ausculation Bilateral, NORMAL BREATHING PATTERN. absent: Rales, Rhonchi, Wheezes - Cardiovascular Exam Cardiovascular Exam: REGULAR RHYTHM, +S1, +S2. absent: Clicks, Gallop, Rubs, Murmur - GI/Abdominal Exam GI & Abdominal Exam: Soft, Normal Bowel Sounds. absent: Tenderness, Mass, Rebound - Extremities Exam Extremities Exam: Normal Inspection. absent: Calf Tenderness, Pedal Edema - Neurological Exam Neurological Exam: absent: Alert, Awake, CN II-XII Intact, Oriented x3 Neuro motor strength exam: Left Upper Extremity: 0, Right Upper Extremity: 0, Left Lower Extremity: 0, Right Lower Extremity: 0 Additional comments: No corneal, pupillary, calimetric, gag reflexes noted bilaterally (no brainstem reflexes). Does no withdraw to any pain stimuli. GCS=3 - Skin Skin Exam: Dry, Warm Assessment and Plan - Assessment and Plan (Free Text) Assessment: This is a 71yo English female with PMH of a.fib (was not on anticoagulation at home), CVA and HTN who was admitted for respiratory failure secondary to large acute R CVA in the MCA and IRMA territory with cerebal edema and midline shift. Most recent head CT showed new brain stem infarction and hemorrhage without change in massive infarction or midline shift. Patient is found to have no flow on her brain flow scan, she is not overbreathing the ventilator and does not have any brain stem reflexes. Patient was not able to tolerate apnea test. Palliative care is on consult. Will support blood pressure with Levophed. Patient will be transferred to [facility]. Case seen, discussed and reviewed with attending. Agnes Ro PGY2 <Toan Sol - Last Filed: 10/02/17 12:34> Objective - Vital Signs/Intake and Output Vital Signs (last 24 hours): Temp Pulse Resp BP Pulse Ox 97.8 F 73 16 78/37 L 89 L 10/02/17 08:00 10/02/17 10:12 10/02/17 10:12 10/02/17 10:12 10/02/17 10:12 Intake and Output: 10/02/17 10/02/17 06:59 18:59 Intake Total 500 10 Output Total 300 Balance 200 10 - Medications Medications: Current Medications NOREPINEPHRINE BIT/0.9 % NACL (Levophed 4 Mg/ 250 Ml Ns Premixed) 4 mg in 250 mls @ 15 mls/hr IV .[id number] PRN; Protocol; 4 MCG/MIN PRN Reason: TITRATE PER MD ORDER Last Titration: 10/02/17 10:36 Dose: 1 mcg/min, 3.75 mls/hr - Labs Labs: 09/30/17 06:00 10/01/17 06:40 PT 12.1 SECONDS (9.4-12.5) 09/25/17 10:40 INR 1.05 (0.93-1.08) 09/25/17 10:40 APTT 33.0 Seconds (25.1-36.5) 09/25/17 10:40 Attending/Attestation - Attestation I have personally seen and examined this patient.: Yes I have fully participated in the care of the patient.: Yes I have reviewed all pertinent clinical information, including history, physical exam and plan: Yes Notes (Text): 10/02/17 12:29 71 yo female with pending neuro exam to confirm an absence of brainstem reflexes as patient's family decided against terminal extubation despite the fact that acute ischemic MCA stroke was devastating with almost nil chance of neurological recovery at present time. Patient is being transfered to LTAC facility. ccm time 40 min
--- NOTE | 2017-10-02 08:22 | PN ---
DATE: 10/01/2017 CRITICAL CARE PROGRESS NOTE This 71-year-old female remains in critical ICU bed number 7. She earlier today had a brain flow nuclear medical scan reviewed that shows no flow identified in her cerebral hemispheres and the findings are consistent with criteria for brain . This was reviewed with Dr. Williamson from Neurology and the family was informed. They have agreed to DNR, but will not agree to removal of respiratory ET tube and the patient's further medication and labs have been withdrawn; however, she continues on nasogastric feeding. PHYSICAL EXAMINATION: VITAL SIGNS: Show an unresponsive female intubated with a temperature of 99, respirations 16, pulse 89 and blood pressure 104/72 and pulse ox of 100%. HEENT: Head: Normocephalic, atraumatic. Eyes: No icterus. Ears: Clear. Throat: ET tube in place. NECK: Supple. HEART: Irregular S1, S2. LUNGS: No wheezing. ABDOMEN: Soft. EXTREMITIES: No edema. SKIN: Without rash. NEUROLOGIC: Nonresponsive, no corneal reflexes. VASCULAR: Legs warm to touch. LABORATORY DATA: White count 7200, hemoglobin 11.8, hematocrit 36.8, platelets 83,000. Sodium 152, K 5.2, chloride 119, bicarb 24, BUN 56, creatinine 1.3, random blood sugar 484. Bilirubin 0.4, AST 40, ALT 30, alk phos 68. All blood, sputum and urine cultures negative to date. IMPRESSION: A 71-year-old female status post massive right anterior and middle cerebral artery stroke complicated by left brain shifting as well as brainstem hemorrhaging in an unresponsive neurological state with brain as per brain blood flow scanning and comorbidities of chronic atrial fibrillation, hypertension and hyperlipidemia. PLAN: The plan at present is to maintain DNR. She will be treated in a supportive compassionate way. No further labs or medications will be administered, but she will continue on NG tube feedings including Jevity 1.2 at 40 mL per hour goal rate. She is also receiving water flushes. She will remain DNR. She is ordered to have antiembolism sequential compression stockings and overall prognosis remains dismal. Greater than 35 minutes was spent in the care, review of labs, medication, x-rays and plan of action for this patient's care with medical team and nursing. All questions were answered. Hortencia Manriquez MD [facility]
[2017-10-02 08:40] VITALS: TEMP 97.8
[2017-10-02 10:14] VITALS: BP 78/37; PULSE 73; O2SAT 89
--- NOTE | 2017-10-02 22:46 | DS ---
FINAL DIAGNOSES: Acute right middle, right anterior cerebral artery stroke with hemorrhagic stroke involving brainstem, brain , chronic atrial fibrillation, chronic hypertension, hyperlipidemia. The patient is do not resuscitate. DISPOSITION: To LTAC. The patient remains unresponsive and is being transferred to [facility] for palliative support. The patient is on a ventilator. The patient is receiving NG tube feeds of 1.2, Jevity at 40 mL/hour with water flushes, no medication. SUMMARY: This 71-year-old female was admitted to [facility] with a large right anterior and middle cerebral artery stroke complicated by ventricular shift and subsequent brain stem hemorrhagic stroke which rendered her unresponsive and brain on followup testing. Case was reviewed with family in detail who agreed to DNR, but not DNI. The patient was cleared for transfer to [facility] and at the time of discharge, the patient remains unresponsive with no corneal reflexes or spontaneous respirations, temperature 97.8, respirations 16, pulse 73 and blood pressure 78/37. All medications and labs have ceased to be administered. The patient's overall prognosis is dismal, family is aware and in agreement with transfer. Prognosis remains dismal. Hortencia Manriquez MD [facility]
== END 2017-10-02 13:05 | DRG 64 ==
LOC: ED 08:47 → ERH 10:27 → ICU 11:52
PROVIDERS: ADMIT Internal Medicine; ATTEND Internal Medicine
PROC: 5A1955Z Respiratory Ventilation, Greater than 96 Consecutive Hours (ICD-10-PCS; principal; 2017-09-25)
PROC: 0BH17EZ Insertion of Endotracheal Airway into Trachea, Via Natural or Artificial Opening (ICD-10-PCS; 2017-09-25)
PROC: 05HM33Z Insertion of Infusion Device into Right Internal Jugular Vein, Percutaneous Approach (ICD-10-PCS; 2017-09-25)
DX: I63.521 Cerebral infarction due to unspecified occlusion or stenosis of right anterior cerebral artery (principal); G93.5 Compression of brain; G93.6 Cerebral edema; J69.0 Pneumonitis due to inhalation of food and vomit; J96.90 Respiratory failure, unspecified, unspecified whether with hypoxia or hypercapnia; R40.3 Persistent vegetative state; I62.9 Nontraumatic intracranial hemorrhage, unspecified; Z99.11 Dependence on respirator [ventilator] status; I69.354 Hemiplegia and hemiparesis following cerebral infarction affecting left non-dominant side; E87.0 Hyperosmolality and hypernatremia; R40.2430 Glasgow coma scale score 3-8, unspecified time; I48.2 Chronic atrial fibrillation; K21.9 Gastro-esophageal reflux disease without esophagitis; R29.726 NIHSS score 26; G93.89 Other specified disorders of brain; I63.511 Cerebral infarction due to unspecified occlusion or stenosis of right middle cerebral artery; E78.5 Hyperlipidemia, unspecified; Z66 Do not resuscitate; I11.9 Hypertensive heart disease without heart failure; Z79.02 Long term (current) use of antithrombotics/antiplatelets; Z79.82 Long term (current) use of aspirin